=== PATIENT | female | born 1965 | race Caucasian/White ===

== ENCOUNTER 2019-11-01 15:47 | Emergency (ER) | payer OTHER, SELFPAY ==
[2019-11-01 15:57] VITALS: BP 140/80; PULSE 76; RESP 18; TEMP 36.7; O2SAT 99
--- NOTE | 2019-11-01 16:48 | ED.EAR ---
HPI - Ear Problem General Chief complaint: Ear Stated complaint: earache Time Seen by Provider: 11/01/19 16:40 Source: patient and RN notes reviewed Mode of arrival: ambulatory Limitations: no limitations History of Present Illness HPI Narrative: 54-year-old female who presents to [facility] care with complaints of right ear pain for the past 2 days with stated sinus congestion and sinus drainage for 2 weeks. Patient states that she has had yellow tinged sinus drainage but has not had any fever or chills. Patient does have history of tobacco abuse. Respirations even and nonlabored with no tachypnea or accessory muscle use with SAO2 99% on room air. MD Complaint: ear pain Location: right ear Duration: constant Severity: moderate Relieving factors: nothing Exacerbating factors: nothing Context: Reports recent swimming Discharge from ear: Reports no Associated symptoms ear: external ear tenderness and rhinorrhea Related Data Allergies Allergy/AdvReac Type Severity Reaction Status Date / Time No Known Allergies Allergy Verified 11/01/19 10:04 Review of Systems Review of Systems: Narrative: CONSTITUTIONAL: Denies fever, chills, or sweats. EYES: Denies visual changes, redness, or discharge. ENT: positive rhinorrhea, congestion,no sore throat, right otalgia. CARDIOVASCULAR: Denies chest pain, palpitations, or edema. RESPIRATORY: positive cough denies dyspnea. GASTROINTESTINAL: Denies abdominal pain, nausea, vomiting, or diarrhea. GENITOURINARY: Denies dysuria or hematuria. SKIN: Denies rash or itching. MUSCULOSKELETAL: Denies back pain, joint pain, or myalgia. NEUROLOGIC: Denies headache, numbness, or weakness. PSYCHIATRIC: Positive history of anxiety or depression. All systems reviewed & are unremarkable except as noted in HPI and below PMFSH Past Medical History Medical History (Updated 11/01/19 @ 17:37 by Rylee Luna NP) Anxiety and depression Bipolar 1 disorder HLD (hyperlipidemia) Sleep apnea Surgical History Surgical History (Updated 11/01/19 @ 17:33 by Rylee Luna NP) H/O: section Social History Social History Smoking status: Heavy tobacco smoker Alcohol intake: never Gender identity (if verbalized by the patient): Female Comments At time of signature, agree with nursing past medical, surgical, social history. There is no relevant family history pertinent to the presenting complaint Exam Narrative: Exam Narrative: GENERAL: Well-appearing, well-nourished, and in no acute distress. HEAD: Normocephalic, atraumatic. EYES: PERRLA and EOMI. ENT: Nares red, clear to light yellow tinged rhinorrhea, no stated headache or sinus pressure, positive for right ear with TM intact with dull light reflex and ear canal red and excoriated no purulent drainage noted. throat pink with no swelling of tonsils or exudates. NECK: Supple.no lymphadenopathy auscultation. No respiratory distress. HEART: Regular rate and rhythm. No murmur heard. Normal peripheral pulses. ABDOMEN: Soft, nontender, nondistended, normal active bowel sounds. EXTREMITIES: Normal range of motion. No edema. SKIN: Warm, dry, no rash. NEURO: No focal deficits. Alert and oriented x3. Course Vital Signs Vital signs: Vital Signs Temperature 36.7 C 11/01/19 15:57 Pulse Rate 76 11/01/19 15:57 Respiratory Rate 18 11/01/19 15:57 Blood Pressure 140/80 11/01/19 15:57 Pulse Oximetry 99 11/01/19 15:57 Temperature 36.7 C 11/01/19 15:57 Pulse Rate 76 11/01/19 15:57 Respiratory Rate 18 11/01/19 15:57 Blood Pressure 140/80 11/01/19 15:57 Pulse Oximetry 99 11/01/19 15:57 Medical Decision Making Differential Diagnosis Differential Diagnosis: URI, sinusitis, otitis media, otitis externa, cough Medical Records Medical records reviewed: Yes I reviewed the patient's medical records. Vital Signs Vital Signs: Vital Signs Temperature 36.7 C
== END 2019-11-01 17:02 | disposition home or self-care (01) ==
LOC: EXPGLEN 15:51
PROVIDERS: Emergency Provider Registered Nurse; PCP Family Medicine
DX: H60.91 Unspecified otitis externa, right ear (principal); F17.200 Nicotine dependence, unspecified, uncomplicated; F41.9 Anxiety disorder, unspecified; E78.5 Hyperlipidemia, unspecified; G47.30 Sleep apnea, unspecified; F31.9 Bipolar disorder, unspecified
CPT/HCPCS: 99213; G0463

== ENCOUNTER 2020-07-15 16:44 | Emergency (ER) | payer BC, SELFPAY ==
--- NOTE | 2020-07-15 16:58 | ED.EAR ---
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 Patient states she has a 2-week history of mostly right-sided fullness of her right ear. No fever, tooth ache, true vertigo, tinnitus-she has occasional beating sounds. Symptoms are mild, worse with position changes, which seem almost fluid. Discussed possible causes[allergic, infectious, acquired/smoking, etc.] Related Data Home Medications Medication Instructions Recorded Confirmed lithium carbonate 450 mg PO BID 07/15/20 07/15/20 venlafaxine 150 mg PO DAILY 07/15/20 07/15/20 Allergies Allergy/AdvReac Type Severity Reaction Status Date / Time No Known Allergies Allergy Verified 07/15/20 16:51 Review of Systems Review of Systems: Narrative: General/Constitutional: No weight loss,fever Eyes: N0: Redness,discharge Ears/Nose/Throat: No: Epistaxis,ear discharge Respiratory: Denies: Hemoptysis Gastrointestinal: No Vomiting, Bleeding-rectal Skin: No Lumps, eruption Neurologic: No Focal Weakness,Sz Hematologic: Denies: Petechiae/Purpura Psychiatric: No: Suicida ideationl All Other Systems: Reviewed and Negative PMFSH Past Medical History Medical History Anxiety and depression Bipolar 1 disorder HLD (hyperlipidemia) Sleep apnea Surgical History Surgical History H/O: section Social History Social History Smoking packs per day: 1 Smoking cigarettes per day: 20.0 Years smoked: 22 Smoking pack-years: 22.00 Smoking status: Current every day smoker Second hand tobacco smoke exposure: Yes Alcohol intake: never Substance use: never Substance use type: does not use Gender identity (if verbalized by the patient): Female Comments At time of signature, agree with nursing past medical, surgical, social and family history. There is no relevant family history pertinent to the presenting complaint Exam Narrative: Exam Narrative: General Appearance: Well appearing, Well nourished EYE: PERRLA, Conjunctiva clear Ears: Auditory canal normal, TM normal Nose: no rhinorrhea, Mucousal erythema Mouth/Throat: MM moist, Uvula midline, no pharyngeal erythema Neck: Supple, No adenopathy Respiratory: No respiratory distress, airway patent Cardiovascular: No JVD Musculoskeletal: Non tender, Normal strength Skin: Warm, Dry Neurological: A&O x3, CN II-XII intact Psychiatric: Normal mood, Normal affect Course Vital Signs Vital signs: Vital Signs Temperature 97.9 F 07/15/20 17:00 Pulse Rate 79 07/15/20 17:00 Respiratory Rate 16 07/15/20 17:00 Blood Pressure 167/91 H 07/15/20 17:00 Pulse Oximetry 98 07/15/20 17:00 Temperature 97.9 F 07/15/20 17:00 Pulse Rate 79 07/15/20 17:00 Respiratory Rate 16 07/15/20 17:00 Blood Pressure 167/91 H 07/15/20 17:00 Pulse Oximetry 98 07/15/20 17:00 Medical Decision Making Vital Signs Vital Signs: Vital Signs Temperature 97.9 F 07/15/20 17:00 Pulse Rate 79 07/15/20 17:00 Respiratory Rate 16 07/15/20 17:00 Blood Pressure 167/91 H 07/15/20 17:00 Pulse Oximetry 98 07/15/20 17:00 Temperature 97.9 F 07/15/20 17:00 Pulse Rate 79 07/15/20 17:00 Respiratory Rate 16 07/15/20 17:00 Blood Pressure 167/91 H 07/15/20 17:00 Pulse Oximetry 98 07/15/20 17:00 Discharge Plan Discharge Clinical Impression: Otalgia, right ear Patient Disposition: Home, Self-Care Condition: Stable Instructions: Antibiotic Form, Earache (ED) Additional Instructions: Also try OTC preparations like Flonase, Afrin sprays Prescriptions: New p
[2020-07-15 17:00] VITALS: BP 167/91; PULSE 79; RESP 16; TEMP 36.6; O2SAT 98
== END 2020-07-15 17:17 | disposition home or self-care (01) ==
PROVIDERS: Emergency Provider Emergency Medicine; PCP Family Medicine
DX: H66.92 Otitis media, unspecified, left ear (principal); F31.9 Bipolar disorder, unspecified; E78.5 Hyperlipidemia, unspecified; G47.30 Sleep apnea, unspecified; F17.210 Nicotine dependence, cigarettes, uncomplicated
CPT/HCPCS: 99213; G0463

== ENCOUNTER 2020-10-15 18:09 | Emergency (ER) | payer BC, SELFPAY ==
--- NOTE | ~2020-10-15 | CT_ITS ---
EXAMINATION: CT abdomen pelvis w con EXAM DATE: 10/15/2020 21:09 INDICATION: Abdominal distention. TECHNIQUE: Spiral CT of the abdomen and pelvis was performed following intravenous injection of 100 m L Omnipaque 350. Axial, coronal and sagittal images of the abdomen and pelvis were reviewed. The do se-length product (DLP) for this examination was 1280.98 mGy-cm. The exposure was tailored according to patient size (auto mA exposure control), and iterative reconstruction (ASIR) was used as addition al dose reduction technique. Comparison is made to prior examination from 02/17/2019. FINDINGS: There is hepatic steatosis without suspicious focal lesion identified. Spleen, adrenal glan ds, pancreas are unremarkable. Gallbladder is unremarkable. No biliary obstruction. Portal and spl enic veins are patent. Kidneys enhance symmetrically. There is no hydronephrosis. The uterus is u nremarkable. The bladder is unremarkable. There is no retroperitoneal or pelvic lymphadenopathy. The appendix is normal. There is small sliding gastroesophageal hiatal hernia. There is expected am ount of colonic stool. No free intraperitoneal gas. The heart is normal in size. There are no pe ricardial or pleural effusions. The lung bases are unremarkable. There are no osteoblastic or osteo lytic lesions identified. IMPRESSION: 1. No acute intra-abdominal findings. 2. Hepatic steatosis. Reviewed, dictated and finalized at location A.
[2020-10-15 18:29] VITALS: PULSE 92; RESP 14; TEMP 36.6; O2SAT 98
[2020-10-15 18:53] LABS: Basophils Percent Auto 0.3 % (0.2-1.2); Eosinophils Absolute Auto 0.5 K/mm3 (0-0.3); Eosinophils Percent Auto 4.4 % (0-4.4); Hematocrit 42.8 % (37.0-47.0); Hemoglobin 13.6 g/dL (12.0-15.0); Immature Granulocyte Absolute 0.05 K/mm3 (0.00-0.031); Immature Granulocyte Percent A 0.4 % (0-0.5); Lymphocytes Absolute Auto 2.36 K/mm3 (0.9-3.2); Lymphocytes Percent Auto 20.9 % (18.3-44.2); Mean Corpuscular HGB Conc 31.8 g/dl (32-36); Mean Corpuscular Hemoglobin 29.2 pg (26-34); Mean Corpuscular Volume 91.8 fl (80-100); Mean Platelet Volume 9.5 fl (7.4-10.4); Monocytes Absolute Auto 0.6 K/mm3 (0.1-0.6); Monocytes Percent Auto 5.6 % (2.6-8.5); Neutrophils Absolute Auto 7.7 K/mm3 (1.3-6.7); Neutrophils Percent Auto 68.4 % (45.5-73.1); Platelet Count Result 359 k/mm3 (150-375); Red Blood Count 4.66 M/mm3 (4.2-5.4); Red Cell Distribution Width 13.1 % (11.5-14.5); White Blood Count 11.3 K/mm3 (4.5-10.0)
[2020-10-15 19:04] LABS: Alanine Aminotransferase 37 U/L (4-35); Albumin Level 4.5 g/dL (3.5-5.1); Alkaline Phosphatase 97 U/L (38-126); Anion Gap 11 mmol/L (8-16); Aspartate Amino Transferase 29 U/L (14-36); Bilirubin,Total 0.3 mg/dL (0.2-1.3); Blood Urea Nitrogen 17 mg/dL (7-17); Calcium 10.3 mg/dL (8.4-10.2); Carbon Dioxide 23 mmol/L (22-30); Chloride 107 mmol/L (98-107); Estimated CRCL calculation 81 ml/min; Estimated Glomerular Filt Rate > 60; Glucose 106 mg/dL (65-105); Lipase 148 U/L (23-300); Potassium 4.2 mmol/L (3.4-5.0); Sodium 141 mmol/L (137-145)
[2020-10-15 19:07] LABS: Add Urine Microscopic? YES; Appearance Urine Clear (Clear); Bilirubin Urine Negative (Negative); Blood Urine Negative (Negative); Color Urine Yellow (Yellow); Glucose Urine UA Negative (Negative); Ketones Urine Negative (Negative); Leukocyte Esterase Ur 1+ LEU/UL (Negative); Mucus Urine Rare /lpf; Nitrate Urine Negative (Negative); Protein Urine Negative (Negative); RBC Urine 0-2 /hpf (0-2); Specific Grav Ur 1.015 (1.001-1.035); Squamous Epithelial Cell Urine Occasional /hpf (Few); Urobilinogen Urine Negative mg/dL (<2.0)
[2020-10-15 20:01] VITALS: BP 132/74; PULSE 69; RESP 20; TEMP 37.1; O2SAT 97
--- NOTE | 2020-10-15 20:06 | PC.NURSE ---
Pt presents to ED with complaints of abdominal bloating for the past month. Pt states I feel so full. I have never felt this heavy in my life . Pt states she has been experiencing frequent diarrhea. Pt denies nv, fever, chills, chest pain and sob. Pt adds that she is experiencing pain that is rated 5/10 and dull at this time. Pt noted to be alert and oriented x4 and in no obvious distress with stable vitals. Sister present at bedside. Call button and personal items within reach. Pt advised to press call button for assistance. YONG is present at bedside. Pt now stating that she hasn't seen her psych doc in 2 months and her lithium was increased and since then she has been experiencing bloating and weight gain of 20lbs.
[2020-10-15 20:30] VITALS: BP 130/80; PULSE 69; RESP 18; O2SAT 97
--- NOTE | 2020-10-15 20:34 | ED.GENADULT ---
HPI - General Adult General Chief complaint: Unspecified Stated complaint: bloated Time Seen by Provider: 10/15/20 19:56 Source: patient History of Present Illness HPI narrative: Patient is a 55 y/o female complaining of increasing abdominal bloating for last 2 months. She states that she was recently started on [place], which may have aggravated her bloating. She has some diarrhea, but no vomiting or abdominal pain. She states that she gained 20 lbs during last 2 months. Related Data Home Medications Medication Instructions Recorded Confirmed lithium carbonate 450 mg PO BID 07/15/20 09/19/20 venlafaxine 150 mg PO DAILY 07/15/20 07/15/20 aripiprazole 20 mg tablet 25 mg PO DAILY tablet 09/19/20 09/19/20 Allergies Allergy/AdvReac Type Severity Reaction Status Date / Time No Known Allergies Allergy Verified 09/19/20 08:59 Review of Systems Constitutional: Constitutional: Denies chills, Denies fever(s), Denies headache(s), Denies weakness and Reports weight gain Eyes: Eyes: Denies blurry vision ENT: Denies headache(s) and Denies neck pain Cardiovascular: Cardiovascular: Denies chest pain and Denies dyspnea Respiratory: Respiratory: Denies cough and Denies dyspnea Gastrointestinal: Gastrointestinal: Denies abdominal pain, Reports diarrhea, Denies nausea, Denies vomiting and Reports other ( bloating ) Genitourinary: Genitourinary: Denies hematuria and Denies dysuria Musculoskeletal: Musculoskeletal: Denies back pain and Denies neck pain Neurologic: Denies headache(s) and Denies weakness [facility] Past Medical History Medical History Anxiety and depression Bipolar 1 disorder HLD (hyperlipidemia) Sleep apnea Surgical History Surgical History H/O: section Social History Social History Smoking packs per day: 0.5 Smoking cigarettes per day: 10.0 Years smoked: 22 Smoking pack-years: 11.00 Smoking status: Current every day smoker Second hand tobacco smoke exposure: Yes Alcohol intake: never Substance use: never Substance use type: does not use Gender identity (if verbalized by the patient): Female Exam Const: General: no acute distress and well developed Orientation/consciousness: oriented to person, oriented to place, oriented to time and patient oriented x3 HENMT: Head: normocephalic Ears: external ears normal General nose exam: Normal external nose present Eyes: General: appearance normal, both eyes and all related structures Conjunctivae: conjunctivae normal Neck: Neck: normal visual inspection and full ROM Chest: Chest palpation & inspection: normal inspection of the chest and no tenderness Resp: Effort & Inspection: normal respiratory effort Auscultation: clear to auscultation bilaterally Cardio: Rate: regular rate Rhythm: regular rhythm GI: GI Palp: No abdominal tenderness and Yes Soft to palpation Skin: General skin exam: normal color and turgor normal Neuro: General: oriented to person, oriented to place, oriented to time and patient oriented x3 Cognition (Neuro): normal cognition Extrem: General: normal to inspection, full ROM and no pedal edema Psych: Appearance: grossly normal Mental Status: mental status grossly normal Affect: normal affect Course Vital Signs Vital signs: Vital Signs Temperature 36.6 C 10/15/20 18:29 Pulse Rate 92 10/15/20 18:29 Respiratory Rate 14 10/15/20 18:29 Pulse Oximetry 98 10/15/20 18:29 Temperature 36.8 C 10/15/20 22:42 Pulse Rate 71 10/15/20 22:42 Respiratory Rate 17 10/15/20 22:42 Blood Pressure 134/82 10/15/20 22:42 Pulse Oximetry 98 10/15/20 22:42 Medical Decision Making Vital Signs Vital Signs: Vital Signs Temperature 36.6 C 10/15/20 18:29 Pulse Rate 92 10/15/20 18:29 Respiratory Rate 14 10/15/20 18:
--- NOTE | 2020-10-15 21:03 | PC.NURSE ---
Pt continues resting on cart in its lowest position with call button and personal items within reach. Pt remains alert and oriented x4 and in no obvious distress with stable vitals. sister remains at bedside. Pt advised to press call button for assistance. Pt refusing blanket or sheet at this time.
--- NOTE | 2020-10-15 21:04 | PC.NURSE ---
Pelvic exam completed by EDMD and pt tolerated well.
--- NOTE | 2020-10-15 21:06 | PC.NURSE ---
Pt to radiology via cart.
[2020-10-15 22:05] LABS: Lithium 0.5 mmol/L (0.6-1.2)
--- NOTE | 2020-10-15 22:18 | PC.NURSE ---
Awaiting med from pharmacy.
--- NOTE | 2020-10-15 22:34 | PC.NURSE ---
pharmacy called about med. Med tubed to ED and received.
--- NOTE | 2020-10-15 22:36 | PC.NURSE ---
EDMD presented to bedside to update pt on poc and all questions and concerns addressed.
[2020-10-15 22:37] VITALS: BP 134/82; PULSE 68; RESP 23; TEMP 36.8; O2SAT 99
[2020-10-15] MEDS: SIMETHICONE 80 MG TAB.CHEW PO (22:38)
[2020-10-15 22:40] VITALS: BP 134/82; PULSE 71; RESP 17; TEMP 36.8; O2SAT 100
[2020-10-15 22:42] VITALS: BP 134/82; PULSE 71; RESP 17; TEMP 36.8; O2SAT 98
== END 2020-10-15 22:46 | disposition home or self-care (01) ==
PROVIDERS: Emergency Provider Emergency Medicine; PCP Physician Assistant
DX: K76.0 Fatty (change of) liver, not elsewhere classified (principal); R14.0 Abdominal distension (gaseous); F41.8 Other specified anxiety disorders; E78.5 Hyperlipidemia, unspecified; F17.210 Nicotine dependence, cigarettes, uncomplicated
CPT/HCPCS: 36415; 74177; 80053; 80178; 81001; 81025; 83690; 85025; 99284; A9270; Q9967

== ENCOUNTER 2021-01-03 19:29 | Emergency (ER) | payer BC, SELFPAY ==
--- NOTE | ~2021-01-03 | CT_ITS ---
EXAMINATION: CTA chest PE protocol DATE: 01/03/2021 23:34 INDICATION: Shortness of breath for 3 days TECHNIQUE: Computed tomography angiography (CTA) of the chest was performed with 100 mL Omnipaque-350 intravenous contrast timed to evaluate the pulmonary arteries. Coronal maximum intensity projection 3D-reconstructions were created by the technologist. Automated exposure control and iterative reconst ruction technique were employed. Exam dose: 995.26 mGy-cm total exam DLP. COMPARISON: 01/03/2021 2 view chest FINDINGS: There is moderate opacification the pulmonary arteries. No pulmonary embolism is evident. No thoracic aortic aneurysm or dissection. Normal heart size. No hilar or mediastinal mass lesion or lymphadenopathy. No pericardial or pleural effusion. No pulmonary infiltrate or consolidation or suspicious pulmonary mass lesion. The adrenal glands are normal. Small sliding hiatal hernia. Small left lower lobe calcified pulmonary granuloma. Degenerative spurring of the thoracic spine. No suspicious osteolytic or osteoblastic lesions are not ed. IMPRESSION: No evidence of pulmonary embolism Reviewed, dictated and finalized at Location A. Reviewed, dictated and finalized at location A.
--- NOTE | ~2021-01-03 | XR_ITS ---
XR chest 2V DATE: 01/03/2021 20:07 INDICATION: Shortness of breath, worsening over the past 3 days. Bilateral ankle swelling and weight gain. TECHNIQUE: PA and lateral views COMPARISON: 02/17/2019 PA and lateral chest FINDINGS: Normal heart size. No hilar or mediastinal enlargement. No pulmonary infiltrate or consolid ation, pleural effusion or pulmonary vascular congestion or pneumothorax. Degenerative spurring and dextro scoliosis of the thoracic spine. IMPRESSION: No active cardiopulmonary disease. No evidence of congestive changes. Reviewed, dictated and finalized at location A. IMPRESSION: No active cardiopulmonary disease. No evidence of congestive change s.
--- NOTE | 2021-01-03 19:44 | ECG_ITS ---
Measurements Intervals [place] Rate: 84 P: 50 ID: [id number] QRS: 39 QRSD: 110 T: 72 QT: 384 QTc: 455 Interpretive Statements SINUS RHYTHM BASELINE ARTIFACT- I, II, III, AVR, AVL, AVF, V1, V3 NORMAL ECG Electronically Signed On 01-03-2021 20:08:26 CDT by Sacha Marsh D.O.
[2021-01-03 19:46] VITALS: BP 183/88; PULSE 90; RESP 21; TEMP 36.4; O2SAT 97
[2021-01-03 19:52] LABS: Glucose Point of Care 105 mg/dl (65-105)
[2021-01-03 20:01] LABS: Basophils Absolute Auto 0.1 K/mm3 (0.0-0.1); Basophils Percent Auto 0.6 % (0.2-1.2); Eosinophils Absolute Auto 0.5 K/mm3 (0-0.3); Eosinophils Percent Auto 5.2 % (0-4.4); Hematocrit 41.5 % (37.0-47.0); Immature Granulocyte Absolute 0.03 K/mm3 (0.00-0.031); Immature Granulocyte Percent A 0.3 % (0-0.5); Lymphocytes Absolute Auto 2.31 K/mm3 (0.9-3.2); Lymphocytes Percent Auto 25.4 % (18.3-44.2); Mean Corpuscular HGB Conc 31.3 g/dl (32-36); Mean Corpuscular Hemoglobin 29.4 pg (26-34); Mean Corpuscular Volume 93.9 fl (80-100); Mean Platelet Volume 9.6 fl (7.4-10.4); Monocytes Absolute Auto 0.6 K/mm3 (0.1-0.6); Monocytes Percent Auto 6.4 % (2.6-8.5); Neutrophils Absolute Auto 5.7 K/mm3 (1.3-6.7); Neutrophils Percent Auto 62.1 % (45.5-73.1); Platelet Count Result 355 k/mm3 (150-375); Red Blood Count 4.42 M/mm3 (4.2-5.4); Red Cell Distribution Width 12.9 % (11.5-14.5); White Blood Count 9.1 K/mm3 (4.5-10.0)
[2021-01-03 20:10] LABS: INR 0.9; Prothrombin Time 12.2 Seconds (11.1-14.7)
[2021-01-03 20:11] LABS: Anion Gap 9 mmol/L (8-16); Blood Urea Nitrogen 14 mg/dL (7-17); Calcium 9.9 mg/dL (8.4-10.2); Carbon Dioxide 29 mmol/L (22-30); Chloride 104 mmol/L (98-107); Estimated CRCL calculation 62 ml/min; Estimated Glomerular Filt Rate 51; Glucose 114 mg/dL (65-110); Partial Thromboplastin Time 32.1 SECONDS (22.3-36.8); Potassium 4.1 mmol/L (3.4-5.0); Sodium 142 mmol/L (137-145)
[2021-01-03 20:24] LABS: NT Pro B Type Natriuretic Pept 23 pg/mL (5-100); Troponin I < 0.012 ng/mL (0.000-0.034)
[2021-01-03 21:46] VITALS: PULSE 75; O2SAT 98
--- NOTE | 2021-01-03 21:46 | PC.NURSE ---
Pedal pulses marked by LEXI.
[2021-01-03 22:02] VITALS: BP 141/74; PULSE 74; RESP 25; O2SAT 95
[2021-01-03 22:09] LABS: Alanine Aminotransferase 57 U/L (4-35); Albumin Level 4.5 g/dL (3.5-5.1); Alkaline Phosphatase 93 U/L (38-126); Aspartate Amino Transferase 43 U/L (14-36); Bilirubin,Total 0.4 mg/dL (0.2-1.3)
[2021-01-03 22:17] VITALS: BP 144/74; PULSE 71; RESP 26; O2SAT 96
[2021-01-03 22:32] VITALS: BP 148/83; PULSE 75; RESP 20; O2SAT 96
[2021-01-03] MEDS: FUROSEMIDE INJ 40 MG/4 ML VIAL 20 MG IV PUSH (22:58)
--- NOTE | 2021-01-03 23:12 | ED.GENADULT ---
HPI - General Adult General Chief complaint: Shortness of Breath/Dyspnea Stated complaint: bilateral leg edema Time Seen by Provider: 01/03/21 22:18 History of Present Illness HPI narrative: Patient 55-year-old female presents the emergency department with chief complaint of shortness of breath and bilateral lower extremity swelling. Patient reports that over the last several days she has noticed that her legs have been swelling up patient reports no trauma reports no long trips does report that she occasionally smokes cigarettes patient reports symptoms are not improved by anything reports she is attempted to elevate her legs for about 20minutes without any improvement patient denies fever denies chills denies chest pain. Related Data Home Medications Medication Instructions Recorded Confirmed lithium carbonate 450 mg PO BID 07/15/20 09/19/20 venlafaxine 150 mg PO DAILY 07/15/20 07/15/20 aripiprazole 20 mg tablet 25 mg PO DAILY tablet 09/19/20 09/19/20 Allergies Allergy/AdvReac Type Severity Reaction Status Date / Time No Known Allergies Allergy Verified 01/03/21 21:54 Review of Systems Review of Systems: A 10 system review of systems was completed on the patient and is negative except for what is stated in the HPI. Nursing and ancillary documentation was reviewed. PMFSH Past Medical History Medical History Anxiety and depression Bipolar 1 disorder HLD (hyperlipidemia) Sleep apnea Surgical History Surgical History H/O: section Social History Social History Smoking packs per day: 0.5 Smoking cigarettes per day: 10.0 Years smoked: 22 Smoking pack-years: 11.00 Smoking status: Current every day smoker Second hand tobacco smoke exposure: Yes Alcohol intake: never Substance use: never Substance use type: does not use Gender identity (if verbalized by the patient): Female Exam Narrative: GENERAL: Well-appearing, well-nourished, and in no acute distress. HEAD: Normocephalic, atraumatic. EYES: PERRLA and EOMI. ENT: Nares clear, no rhinorrhea or epistaxis. Mucous membranes moist. NECK: Supple. CHEST: Clear to auscultation. No respiratory distress. HEART: Regular rate and rhythm. No murmur heard. Normal peripheral pulses. ABDOMEN: Soft, nontender, nondistended, normal active bowel sounds. EXTREMITIES: Normal range of motion. +1 edema. SKIN: Warm, dry, no rash. NEURO: No focal deficits. Alert and oriented x3. PSYCH: Normal mood and affect. Course Vital Signs Vital signs: Vital Signs Temperature 36.4 C 01/03/21 19:46 Pulse Rate 90 01/03/21 19:46 Respiratory Rate 21 H 01/03/21 19:46 Blood Pressure 183/88 H 01/03/21 19:46 Pulse Oximetry 97 01/03/21 19:46 Temperature 36.4 C 01/03/21 19:46 Pulse Rate 70 01/03/21 23:46 Respiratory Rate 25 H 01/03/21 23:46 Blood Pressure 143/77 H 01/03/21 23:46 Pulse Oximetry 96 01/03/21 23:46 Medical Decision Making Vital Signs Vital Signs: Vital Signs Temperature 36.4 C 01/03/21 19:46 Pulse Rate 90 01/03/21 19:46 Respiratory Rate 21 H 01/03/21 19:46 Blood Pressure 183/88 H 01/03/21 19:46 Pulse Oximetry 97 01/03/21 19:46 Temperature 36.4 C 01/03/21 19:46 Pulse Rate 70 01/03/21 23:46 Respiratory Rate 25 H 01/03/21 23:46 Blood Pressure 143/77 H 01/03/21 23:46 Pulse Oximetry 96 01/03/21 23:46 Lab Data Result diagrams: 01/03/21 19:52 01/03/21 19:52 Labs: Lab Results 01/03/21 01/03/21 01/03/21 Range/Units 19:50 19:52 19:52 WBC 9.1 (4.5-10.0) K/mm3 RBC 4.42 (4.2-5.4) M/mm3 Hgb 13.0 (12.0-15.0) g/dL Hct 41.5 (37.0-47.0) % MCV 93.9 (80-100) fl MCH 29.4 (26-34) pg MCHC 31.3 L (32-36) g/dl RDW 12.9 (11.5-14.5)
[2021-01-03 23:46] VITALS: BP 143/77; PULSE 70; RESP 25; O2SAT 96
[2021-01-03 23:53] LABS: Add Urine Microscopic? YES; Appearance Urine Clear (Clear); Bilirubin Urine Negative (Negative); Blood Urine Negative (Negative); Color Urine Yellow (Yellow); Glucose Urine UA Negative (Negative); Ketones Urine Negative (Negative); Leukocyte Esterase Ur 1+ LEU/UL (Negative); Nitrate Urine Negative (Negative); Protein Urine Negative (Negative); RBC Urine 0-2 /hpf (0-2); Specific Grav Ur 1.017 (1.001-1.035); Squamous Epithelial Cell Urine Rare /hpf (Few); Urobilinogen Urine Negative mg/dL (<2.0)
[2021-01-04 00:42] VITALS: BP 157/93; PULSE 72; RESP 22; O2SAT 97
== END 2021-01-04 00:46 | disposition home or self-care (01) ==
PROVIDERS: Emergency Medicine; Emergency Provider Emergency Medicine; PCP Physician Assistant
DX: N30.00 Acute cystitis without hematuria (principal); R60.0 Localized edema; E78.5 Hyperlipidemia, unspecified; G47.30 Sleep apnea, unspecified; F31.9 Bipolar disorder, unspecified; F41.9 Anxiety disorder, unspecified; F17.210 Nicotine dependence, cigarettes, uncomplicated
CPT/HCPCS: 36415; 71046; 71275; 80048; 80076; 81001; 82948; 83880; 84484; 85025; 85610; 85730; 87086; 87088; 93005; 96374; 99284; J1940; Q9967

== ENCOUNTER 2021-01-04 07:43 | Outpatient (CLI) | payer BC, SELFPAY ==
--- NOTE | ~2021-01-04 | US_ITS ---
EXAMINATION: US venous doppler LE EXAM DATE: 01/04/2021 08:26 INDICATION: Lower extremity edema. TECHNIQUE: Multiple grayscale, color flow and Doppler images of the lower extremity deep venous syste ms bilaterally were obtained and reviewed. There is no prior study for comparison. FINDINGS: Right side: The right common femoral, femoral and profunda veins demonstrate normal color flow, respi ratory variation, augmentation and compressibility. Compressibility, color flow confirmed within the right popliteal, posterior tibial, peroneal, and greater saphenous veins. Left side: The left common femoral, femoral and profunda veins demonstrate normal color flow, respira tory variation, augmentation and compressibility. Compressibility, color flow confirmed within the l eft popliteal, posterior tibial, peroneal, and greater saphenous veins. IMPRESSION: 1. No lower extremity deep venous thrombosis bilaterally. Reviewed, dictated and finalized at location D.
== END 2021-01-04 07:44 | disposition home or self-care (01) ==
LOC: ANHIMG 07:47
PROVIDERS: PCP Physician Assistant; Visit Provider Physician Assistant
DX: R60.0 Localized edema (principal)
CPT/HCPCS: 93970

== ENCOUNTER 2021-02-18 13:31 | Outpatient (CLI) | payer BC, MEDICAID, SELFPAY ==
--- NOTE | 2021-02-18 13:45 | ECHO_ITS ---
Patient Info Name: Malgorzata Maher Age: 55 years : 1965 Gender: Female Ht: 62 in Wt: 250 lbs BSA: 2.30 m2 HR: 72 bpm BP: 167 / 103 mmHg Technical Quality: Fair Exam Date: 02/18/2021 1:49 PM Exam Location: [facility] Patient Status: Outpatient Admit Date: 02/18/2021 Staff Ordering Physician: Taina Bautista PA-C [place] Hat Smearer: Misty Card RDCS Attending Provider: Taina Bautista PA-C Referring Physician: Michele HERNANDEZ; Exam Type: CA echo doppler color flow Study Info Indications R60.9 - Edema, unspecified Complete two-dimensional, color flow and Doppler transthoracic echocardiogram is performed. Summary 1. Complete two-dimensional, color flow and Doppler transthoracic echocardiogram is performed. 2. Left ventricular chamber dimension is normal. 3. Left ventricular systolic function is normal, estimated at 55-60%. 4. There is mildly increased left ventricular wall thickness. 5. The left ventricular diastolic function is grade I diastolic dysfunction. 6. E/e' 10 is mildly elevated. 7. The mitral valve has mildly calcified annulus. 8. No pulmonary hypertension, estimated pulmonary arterial systolic pressure is 23 mmHg. Left Ventricle E/e' 10 is mildly elevated. Left ventricular chamber dimension is normal. Left ventricular systolic function is normal, estimated at 55-60%. There is mildly increased left ventricular wall thickness. The left ventricular diastolic function is grade I diastolic dysfunction. Right Ventricle Right ventricular chamber dimension is normal. Right ventricular systolic function is normal. Left Atria Left atrial chamber dimension is normal. Right Atria Right atrial chamber dimension is normal. Aortic Valve The aortic valve is trileaflet. There is no aortic valve stenosis. There is no aortic valve regurgitation. Pulmonic Valve There is no pulmonic regurgitation. Mitral Valve The mitral valve has mildly calcified annulus. There is no mitral valve stenosis. There is no mitral valve regurgitation. Tricuspid Valve There is no tricuspid valve regurgitation. No pulmonary hypertension, estimated pulmonary arterial systolic pressure is 23 mmHg. Pericardium/Pleural There is no pericardial effusion. Inferior Vena Cava Normal inferior vena cava with >50% collapse upon inspiration consistent with normal right atrial pressure, 5 mmHg. Aorta The aortic root size at the sinus of Valsalva is normal. Left Ventricular Outflow Tract Name Value Normal LVOT 2D LVOT Diameter 2.0 cm LVOT Doppler LVOT Peak Gradient 7 mmHg LVOT Mean Gradient 4 mmHg LVOT VTI 30 cm LVOT VTI/AV VTI Ratio 1.0 LVOT Stroke Volume 92 ml LVOT CO 5.7 l/min LVOT CI 2.5 l/min/m2 Pulmonic Valve Name Value Normal
== END 2021-02-18 13:32 | disposition home or self-care (01) ==
LOC: ANHCARD 13:36
PROVIDERS: PCP Family Medicine; Visit Provider Physician Assistant
DX: R06.02 Shortness of breath (principal); R60.9 Edema, unspecified
CPT/HCPCS: 93306

== ENCOUNTER 2021-05-07 14:16 | Emergency (ER) | payer BC, SELFPAY ==
[2021-05-07 14:30] VITALS: BP 163/90; PULSE 99; RESP 16; TEMP 37.7; O2SAT 99
--- NOTE | 2021-05-07 14:49 | ED.URI ---
HPI - URI/Sore Throat General Chief Complaint: Upper Respiratory Infection Stated Complaint: Flu Sx/Body aches Source: patient Mode of arrival: ambulatory Limitations: no limitations History of Present Illness HPI Narrative: 56-year-old female presenting for complaint of headache, body aches, sinus pressure, loss of taste, fever and chills. Onset today. She denies chest pain, shortness of breath, nausea, vomiting, diarrhea. Patient is vaccinated for COVID, needs the booster. 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 MD elicited complaint: cough Related Data Home Medications Medication Instructions Recorded Confirmed lithium carbonate 450 mg PO BID 07/15/20 09/19/20 venlafaxine 150 mg PO DAILY 07/15/20 07/15/20 aripiprazole 20 mg tablet 25 mg PO DAILY tablet 09/19/20 09/19/20 buspirone 5 mg tablet 5 mg PO BID 04/17/21 Allergies Allergy/AdvReac Type Severity Reaction Status Date / Time No Known Allergies Allergy Verified 04/17/21 09:02 Review of Systems Review of Systems: CONSTITUTIONAL: Endorses malaise, chills, sweats, fever. EYES: Denies visual changes, redness, or discharge. ENT: Reports rhinorrhea, congestion, sinus pain, otalgia and sore throat. CARDIOVASCULAR: Denies chest pain, palpitations, or edema. RESPIRATORY: Reports cough, post nasal drainage. Denies dyspnea. GASTROINTESTINAL: Denies abdominal pain, nausea, vomiting, diarrhea SKIN: Denies rash or itching. MUSCULOSKELETAL: Endorses myalgia. NEUROLOGIC: Denies headache. [facility] Past Medical History Medical History Anxiety and depression Bipolar 1 disorder HLD (hyperlipidemia) Hypertension Sleep apnea Surgical History Surgical History H/O: section Family History Family History Mother CHF (congestive heart failure) Sibling Hx of artificial heart valve replacement Pacemaker Social History Social History Smoking packs per day: 0.5 Smoking cigarettes per day: 10.0 Years smoked: 22 Smoking pack-years: 11.00 Second hand tobacco smoke exposure: Yes Alcohol intake: never Substance use: never Substance use type: does not use Gender identity (if verbalized by the patient): Female Exam Narrative: GENERAL: Ill-appearing, nontoxic no acute distress. HEAD: Normocephalic EYES: PERRLA, conjunctivae clear ENT: Mucous membranes moist. TM pearly dean with dull light reflex bilaterally; no tragal tenderness. Oropharynx erythematous without lesions, no drooling, no hoarseness, no trismus, uvula midline. NECK: Supple. No lymphadenopathy CHEST: Clear to auscultation, breath sounds equal. No wheezing, rhonchi, rales, or stridor. No respiratory distress, speaks in full sentences. HEART: Regular rate and rhythm. No murmur heard. SKIN: Warm, dry, no rash. NEURO: Alert and oriented x3. PSYCH: Normal mood and affect Course Course Emergency Course: covid neg flu neg Patient is aware of diagnosis, understands and agrees to treatment plan. Anticipatory guidance given. Patient agrees to follow-up as directed and is aware of reasons to seek care at the emergency department. Portions of this record may have been created with voice recognition software Level of Care: Express Care Visit Vital Signs Vital signs: Vital Signs Temperature 99.8 F H 05/07/21 14:30 Pulse Rate 99 05/07/21 14:30 Respiratory Rate 16 05/07/21 14:30 Blood Pressure 163/90 H 05/07/21 14:30 Pulse Oximetry 99 05/07/21 14:30 Temperature 99.8 F H 05/07/21 14:30 Pulse Rate 99 05/07/21 14:30 Respiratory Rate 16 05/07/21 14:30 Blood Pressure 163/90 H 05/07/21 14:30 Pulse Oximetry 99 05/07/21 14:30 reviewed MDM - URI/Sore Throat Differential Diagnosis Differential
== END 2021-05-07 15:39 | disposition home or self-care (01) ==
PROVIDERS: Emergency Provider Nurse Practitioner Family; PCP Physician Assistant
DX: B34.9 Viral infection, unspecified (principal); Z20.822 Contact with and (suspected) exposure to COVID-19; F17.210 Nicotine dependence, cigarettes, uncomplicated; I10 Essential (primary) hypertension; G47.30 Sleep apnea, unspecified; E78.5 Hyperlipidemia, unspecified; F31.9 Bipolar disorder, unspecified; F41.9 Anxiety disorder, unspecified
CPT/HCPCS: 87426; 87804; 99213; C9803; G0463

== ENCOUNTER 2023-03-13 10:21 | Outpatient (CLI) | payer BC, SELFPAY ==
--- NOTE | ~2023-03-13 | XR_ITS ---
EXAMINATION: XR chest 2V DATE: 03/13/2023 10:38 INDICATION: Cough TECHNIQUE: Frontal and lateral views of the chest are obtained COMPARISON: 01/03/2021 FINDINGS: The lungs are free of acute opacities. No pleural effusion or pneumothorax. The cardiomedia stinal silhouette is normal. There is severe thoracic spondylosis. IMPRESSION: 1. No acute cardiopulmonary abnormality. Reviewed, dictated and finalized at location F. MANAGER
== END 2023-03-13 10:22 | disposition home or self-care (01) ==
PROVIDERS: PCP Family Medicine
DX: R05.9 Cough, unspecified (principal)
CPT/HCPCS: 71046

== ENCOUNTER 2024-06-06 11:49 | Outpatient (CLI) | payer BC, SELFPAY ==
[2024-06-06 12:38] LABS: Influenza A QL RT-PCR Negative (Negative); Influenza B QL RT-PCR Negative (Negative); RSV RNA, RT-PCR Negative (Negative); SARS-CoV-2 RNA PCR Negative (Negative)
--- OUTSIDE RECORDS SUMMARY | 2024-06-06 14:37 | XMS_ITS | Clinical Summary ---
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 Name Role Phone Unavailable Primary Care Provider Unavailabl e Social History Tobacco Use Types Packs/Day Years Used Date Smoking Tobacco: Never Assessed Comments Unknown Sex and Gender Information Value Date Recorded Sex Assigned at Not on file Legal Sex Female 4:21 PM CDT Gender Identity Not on file Sexual Orientation Not on file Plan of Treatment Health Maintenance Due Date Last Done Comments Cervical Cancer Screening Pa p Smear (Age 30 to 64) Every 3 Years 1963 Colorectal Cancer Screening Colonoscopy (10 Years) 1963 Annual Physical 1966 Hepatitis C 1981 DTaP, Tdap and Td Vaccines ( 1 - Tdap) 1982 Cervical Cancer Screening Pa p with HPV Testing (Age 30 to 64) Every 5 Years 1993 Cervical Cancer Screening with HPV 1993 Mammogram Screening 2003 Zoster Vaccines (1 of 2) 2013 COVID-19 Vaccine (2023-2 5 season) 2023 Influenza Adult (#1) 2024 RSV Immunization or 60+ Years (1 - 1-dose 75+ series) 2038 Meningococcal B Vaccine Aged Out No l onger eligible based on patient's age to complete this topic Meningococcal Vaccine Aged Out No tae kinsey eligible based on patient's age to complete this topic Pneumococcal Vaccine: Pediat rics (0 to 5 Years) and At-Risk Patients (6 to 64 Years) Aged Out No longer eligible b ased on patient's age to complete this topic RSV Immunizations Under 20 Months Aged Out No longer eligible based on patient's age to complete this topic
--- OUTSIDE RECORDS SUMMARY | 2024-06-06 14:37 | XMS_ITS | Continuity of Care Document ---
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 [address] , [address], [place], [place], [facility], . tel:[phone] Office/outpat ient Visit, Est [facility], [address] [place] [address] [address], [place], [place], [id number], tel:[phone] [facility] No Information 0 Tabitha Magallanes. [address] , [address], [place], [address], [place]. tel:[phone] Family History Family Member Type Diagnosis Age At Onset No Information Payers Payer name Insurance type Covered democrat ID Authorkena luigiadán(s) [employer] Plan CI [id number] Social History Type Description Quantity Date Captured Comments Sex Female Smoking Status No Information Chief Complaint And Reason For Visit No Information Reason For Referral Reason For Referral No Information History Of Present Illness Encounter Date Complaint History Of Prese nt Illness No Information Functional Status Date Functional Assessmen t No Information Instructions Date Instruction Additional Infor mation No Information Assessments Type Assessment Date No Information Patient Care Teams Name Effective Dates (start - stop) Status Members No Information
--- OUTSIDE RECORDS SUMMARY | 2024-06-06 14:37 | XMS_ITS | Continuity of Care Document ---
Author Organization [facility] Address [address] [place] [address] Phone Care Team Providers Care Senior Director Marketing Name Role Phone Stack Axel VENTURA Unavailable Unavailab le Allergies, Adverse Reactions, Alerts Substance Reaction Status Criticality No Known Allergies Active No Inform ation Medications Medication Instructions Dosage Effective Dates (start - stop) Status Comments meloxicam 15 mg tablet take 1 tablet by oral route every day 15 MG - Active Procedures Procedure Date X-ray exam knee, 3 views X-ray exam knee, 4+ views Office/outpatient visit,est, mod 2021 Asp/inject major joint or bursa w/o US g uidance Kenalog 40mg/mL Asp/inject major joint or bursa w/o US g uidance Kenalog 40mg/mL Asp/inject major joint or bursa w/o US g uidance Kenalog Triamcinolone acetonide inj Asp/inject major joint or bursa w/o US g uidance Kenalog Triamcinolone acetonide inj X-ray exam knee, 3 views Office/outpatient visit,est, mod 2020 Asp/inject major joint or bursa w/o US g uidance Kenalog Triamcinolone acetonide inj X-ray exam knee, 4+ views Office/outpatient visit,new, [facility] [place] Advance Directives Directive Yes / No Effective Date File Name No Information Encounters Encounter Description Practice Location Reason(s) For Visit Diagnoses Date Provider Providers Copied on Encounter Office/outpat ient visit,est, mod [facility], [address] [address], [place], [place], [id number], [place] tel:[phone] [facility] bilat knees (chief complaint) Pain in left kneePain in right kneeBilateral primary osteoarthritis of knee 2 Stack Axel. [address] [place] [address], [place], [place], [id number] , [place]. tel: [phone] [facility], [address], [id number], [place] tel:[phone] [facility] Bilateral knees (chief complaint) Pain in left kneePain in right kneeBilateral primary osteoarthritis of knee 2 Stack Axel. [address] [facility] [facility] [address], [place], [place], [id number] , [place]. tel: [phone] [facility], [address], [place], [place], [id number], [place] tel:[phone] [facility] Bilateral knees (chief complaint) Bilateral primary osteoarthritis of kneePain in right kneePain in left knee 2 Stack Axel. [address], [place], [place], [id number] , [place]. tel: [phone] [facility], [address] [address], [place], [place], [id number], [place] tel:[phone] [facility] bilateral knees (chief complaint) Pain in right kneePain in left kneeBilateral primary osteoarthritis of knee 1 Stack Axel. [address], [address], [id number] , [place]. tel: [phone] [place]pat ient [place]est, [facility], [address], [place], [place], [id number], [place] tel:[phone] [facility] Bilat knees (chief complaint) Pain in right kneePain in left kneeBilateral primary osteoarthritis of knee 1 Seda Reyna. [address], [place], [place], [id number] , [place]. tel:[phone] Office/outpat ient [place], [facility], [address], [place], [place], [id number], [place] tel:[phone] [facility] left knee (chief complaint) Pain in left kneeUnilateral primary osteoarthritis, left knee 1 Lisa Clarke oswald. [address], [place], [place], [id number] , [place]. tel:[phone] Referring Provider: Kwadwo Dumont [address], [place], [address] . tel:[phone] Family History Family Member Type Diagnosis Age At Onset No Information Payers Payer name Insurance type Covered libertarian ID Analia lemons(s) Belinda Patel [facility] [id number] Social History Type Description Quantity Date Captured Comments Alcohol Use Details No Caffeine Use Details Unknown Tobacco Use Status Current non-smoker Smoking Status Never smoker Non-Smoking Tobacco Use Details : No Details Available : No Details Available Sex Female Vital Signs Date / Time: Height Weight BMI Pulse Rate Blood Pressure Temperature Respiratory Rate Body Surface Area Head Circumference Head Circ. Percentile Wt./Bill. Percentile BMI percentile Pulse Ox Inhaled Ox 1:21 PM 62.00 in 114.305 kg (252.00 lbs) 46.0 9 kg/m eter (2) Chief Complaint And Reason For Visit From encounter dated 03/11/2022 13:30'. bilat knees (chief complaint). Description: Batsheva is a pleasant 57-year-old female who presentsto the office today for cortisone injection into the bilateral knees for treatment of pain related to osteoarthritis. Her last cortisone only lasted 1-2 weeks. She is now experiencing moderate constant diffusely located pain, that is worsened with sitting for an extended period of time, transitioning from sitting to standing, and descending and descending stairs. Pain is managed with the use of ibuprofen and meloxicam. Denies injury, trauma, or fall since last office visit. Denies fever, chills, generalized feelings of illness or malaise. She is ambulating without assistive device at today's office visit. Reason For Referral Reason For Referral No Information Plan Of Treatment Date Type Action Status Goal Dietary manageme nt education, guidance, and counseling completed Referral Ordered: X-ray exam knee, 3 views LT knee ordered Referral Ordered: X-ray exam knee, 4+ views RT knee ordered Referral Ordered: X-ray exam knee, 3 views RT knee ordered Referral Ordered: X-ray exam knee, 4+ views LT knee ordered Future Order: Lab Order Comprehe nsive Metabolic Profile (CMP), Ordered on: Ordered History Of Present Illness Encounter Date Complaint History Of Prese nt Illness bilat knees Batsheva is a p leasant 57-year-old female who presents to the office today for cortisone injection into the bilateral knees for treatment of pain related to osteoarthritis. Her last cortisone only lasted 1-2 weeks. She is now experiencing moderate constant diffusely located pain, that is worsened with sitting for an extended period of time, transitioning from sitting to standing, and descending and descending stairs. Pain is managed with the use of ibuprofen and meloxicam. Denies injury, trauma, or fall since last office visit. Denies fever, chills, generalized feelings of illness or malaise. She is ambulating without assistive device at today's office visit. Bilateral knees Batsheva is a p leasant 56 year old female who presents to the office today for treatment of the pain in her bilateral knees related to osteoarthritis. She last had a cortisone injection into the knee joint on 06/10/2021, and indicates that they worked well until approximately a few weeks ago. Since that time she has been experiencing pain in the bilateral knees that is worsened with ascending and descending stairs. Pain is diffusely located and managed with the use of ibuprofen, is moderate and intermittent in nature. Denies injury, trauma or fall since last office visit. Denies fever, chills, generalized feelings of illness or malaise. She has been on meloxicam in the past and would like to discuss prescription. Indicates no recent lab work and no known history of kidney issues. She is ambulating without assistive device at today's visit. Suzanne Herman is a p leasant 56 year old female who presents to the office today for treatment of the pain in her bilateral knees related to osteoarthritis. She last had a cortisone injection into the knee joint on 03/04/2021, and indicates that she does not remember if they offered any reduction of the pain in the knees or increase in function. 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 Pain is diffusely located and worsened with ascending and descending stairs, ambulation on uneven terrain, and with exercise program for weight loss. The pain is managed with the use of ibuprofen, activity modification, reduction of intact of foods that increase inflammation. She The patient is ambulating without assistive device at today's visit. suzanne Herman is a p leasant 55 year old female who presents to the office today for treatment of the pain in her bilateral knees related to osteoarthritis. She last had a cortisone injection into the knee joint on , and indicates that they worked well until approximately three weeks ago. Since that time she has been experiencing increasing pain in the bilateral knees that is worsened with ascending and descending stairs, ambulation and weight bearing. Pain is diffusely located and is rated at a 9 out of 10 with an aching intermittent nature that is managed with the use of Voltaren gel, and over the counter pain medications and NSAIDs. She is ambulating without assistive device at today's visit. Leodan Herman is a p leasant 55 year-old female who presents to the office for evaluation of her chronic bilateral knee pain. She was seen by Dr. Damir Gonzalez for treatment of pain in the left knee related to osteoarthritis, and conservative treatment continuation was discussed. Patient wishes to proceed with cortisone injection into the bilateral knees. Denies injury, trauma, or fall within the last year. Pain in the right knee is rated at a 4 out of 10 with a dull, aching, constant nature, and pain in the left knee is rated at an 8 out of 10 with a sharp, stabbing, throbbing, burning, aching constant nature. Pain is worsened with ascending and descending stairs, and patient indicates that she actively avoids this activity, as well as ambulation. Pain is managed with the use of Naprosyn and positional changes. Patient is ambulating without assistive device at today's office visit. left knee Batsheva is a [age] year-old female who presents to the office for evaluation of left knee pain. She is a pleasant female who is 5 foot 2 and weighs 252 pounds. She denies any injury. Her pain as a 5 out of 10. It is constant and aching. Symptoms include mild crepitance of joint pain grinding and locking. Pain is greatly improved after her recent cortisone injection on September 18. She is also using Voltaren gel. She has seen Dr. Dumont. Pain is worse with bending climbing stairs descending stairs and walking. She has had no previous surgery she is a non-smoker. She does not currently use an assistive device. She was referred by Dr. Dumont for consideration of future total knee arthroplasty. Functional Status Date Functional Assessmen t No Information Instructions Date Instruction Additional Infor romana Verbal consent for t he procedure was obtained. The patient was seated with the knees bent to 90 degrees of flexion. The bilateral knees were prepped with alcohol and chlorhexidine. The skin of the right knee was anesthetized with Ethyl Chloride spray and a 22 gauge needle was used to introduce 40 mg of Kenalog and 1 mL of 2% Xylocaine into the knee joint. The area of injection was then cleaned and a sterile bandage was placed. The skin of the left knee was anesthetized with Ethyl Chloride spray and a 22 gauge needle was used to introduce 40 mg of Kenalog and 1 mL of 2% Xylocaine plain into the knee joint. The area of injection was then cleaned and a sterile bandage was placed. The procedure was completed without complication, and was well tolerated by the patient. Patient was educated on post injection care instructions and discharged in stable condition. Dictation completed with [employer] software, grammatical variances in spelling errors may inadvertently occur. Related to Bilateral primary osteoarthritis of knee Verbal consent for t he procedure was obtained. The patient was seated with the knees bent to 90 degrees of flexion. The bilateral knees were prepped with alcohol and chlorhexidine. The skin of the right knee was anesthetized with Ethyl Chloride spray and a 22 gauge needle was used to introduce 40 mg of Kenalog and 3 mL of 1% Lidocaine plain into the knee joint. The area of injection was then cleaned and a sterile bandage was placed. The skin of the left knee was anesthetized with Ethyl Chloride spray and a 22 gauge needle was used to introduce 40 mg of Kenalog and 3 mL of 1% Lidocaine plain into the knee joint. The area of injection was then cleaned and a sterile bandage was placed. The procedure was completed without complication, and was well tolerated by the patient. Patient was educated on post injection care instructions and discharged in stable condition. Dictation completed with [employer] software, grammatical variances in spelling errors may inadvertently occur. Related to Bilateral primary osteoarthritis of knee Giving encouragement to exercise Related to Body mass index [BMI] 40.0-44.9, adult Dietary management e ducation, guidance, and counseling Related to Body mass index [BMI] 40.0-44.9, adult Verbal consent for t he procedure was obtained. The patient was seated with the knees bent to 90 degrees of flexion. The bilateral knees were prepped with alcohol and chlorhexidine. The skin of the right knee was anesthetized with Ethyl Chloride spray and a 22 gauge needle was used to introduce 40 mg of Kenalog and 3 mL of 1% Lidocaine plain into the knee joint. The area of injection was then cleaned and a sterile bandage was placed. The skin of the left knee was anesthetized with Ethyl Chloride spray and a 22 gauge needle was used to introduce 40 mg of Kenalog and 3 mL of 1% Lidocaine plain into the knee joint. The area of injection was then cleaned and a sterile bandage was placed. The procedure was completed without complication, and was well tolerated by the patient. Patient was discharged in stable condition. Related to Pain in left knee Verbal consent for t he procedure was obtained. The patient was seated with the knees bent to 90 degrees of flexion. The bilateral knees were prepped with alcohol and chlorhexidine. The skin of the right knee was anesthetized with Ethyl Chloride spray and a 22 gauge needle was used to introduce 40 mg of Kenalog and 3 mL of 1% Lidocaine plain into the knee joint. The area of injection was then cleaned and a sterile bandage was placed. The skin of the left knee was anesthetized with Ethyl Chloride spray and a 22 gauge needle was used to introduce 40 mg of Kenalog and 3 mL of 1% Lidocaine plain into the knee joint. The area of injection was then cleaned and a sterile bandage was placed. The procedure was completed without complication, and was well tolerated by the patient. Patient was discharged in stable condition. Related to Bilateral primary osteoarthritis of knee Verbal consent for t he procedure was obtained. The patient was seated with the knees bent to 90 degrees of flexion. The bilateral knees were prepped with alcohol and chlorhexidine. The skin of the right knee was anesthetized with Ethyl Chloride spray and a 22 gauge needle was used to introduce 40 mg of Kenalog and 3 mL of 1% Lidocaine plain into the knee joint. The area of injection was then cleaned and a sterile bandage was placed. The skin of the left knee was anesthetized with Ethyl Chloride spray and a 22 gauge needle was used to introduce 40 mg of Kenalog and 3 mL of 1% Lidocaine plain into the knee joint. The area of injection was then cleaned and a sterile bandage was placed. The procedure was completed without complication, and was well tolerated by the patient. Patient was discharged in stable condition. Dictation completed with [employer] software, grammatical variances in spelling errors may inadvertently occur. Related to Bilateral primary osteoarthritis of knee Assessments Type Assessment Date assessment Pain in left knee assessment Pain in right knee assessment Bilateral primary osteoarthritis of knee impression Pathophysiology of t he disease process was reviewed with the patient. Imaging studies were reviewed. Continuation of conservative treatments, risks and benefits of cortisone, frequency of injection schedule, medication management and transition to total knee arthroplasty were discussed with the patient. She will continue to work on BMI reduction. She will follow up with her primary care physician to discuss utilization of ibuprofen of meloxicam together, and determine if blood work needs to be performed to evaluate for kidney damage. Discussed ongoing long-term injections, and the patient wishes to obtain 1 more injection. If this 1 does not offer her reduction to her pain recommend transition to pain management. She demonstrates appropriate understanding the diagnosis and plan of care and wishes to proceed with cortisone injection into the bilateral knees Patient Care Teams Name Effective Dates (start - stop) Status Members No Information
--- OUTSIDE RECORDS SUMMARY | 2024-06-06 14:37 | XMS_ITS | Referral Summary ---
Author Organization [facility] Address [address] [place] [address] Care Team Providers Care Fringe Weaver Name Role Phone Indira Ordoñez MD Primary Care Provider [phone] Allergies No known active allergies Medications simvastatin (ZOCOR) 20 mg tablet Take 1 tablet (20 mg total) by mouth daily 0 9 Active LITHIUM 300 mg capsule TAKE 1 CAPSULE EVERY MORNING AND 2 CAPSULES AT BEDTIME. 2 8 Active ofloxacin (FLOXIN) 0.3 % otic solution 0 Active naproxen (NAPROSYN) 500 mg tablet Take 1 tablet (500 mg total) by mouth 2 (two) times a day with meals As needed. 60 tablet 3 0 Active Additional Information Patient not taking.Reported on 10/28/2023 busPIRone (BUSPAR) 5 mg tablet Take 1 tablet (5 mg total) by mouth 2 (two) times a day 2 Active fluticasone propionate (FLONASE) 50 mcg/actuation nasal spray SPRAY 1 SPRAY INTO EACH NOSTRIL TWICE A DAY 3 Active meloxicam (MOBIC) 15 mg tablet Take 1 tablet (15 mg total) by mouth daily 2 Active metoprolol XL (TOPROL-XL) 25 mg extended release tablet Take 1 tablet (25 mg total) by mouth daily 2 Active venlafaxine XR (EFFEXOR-XR) 75 mg 24 hr capsule Take 1 capsule (75 mg total) by mouth every morning 3 Active clonazePAM (KlonoPIN) 0.5 mg tablet TAKE 0.5 OR 1 OR 2 TABLETS NEEDED FOR SEVERE ANXIETY UP TO TWO TIMES PER DAY 3 Active lamoTRIgine (LaMICtal) 100 mg tablet Take 1 tablet (100 mg total) by mouth daily 3 Active benzonatate (TESSALON) 200 mg capsule TAKE 1 CAPSULE BY MOUTH THREE TIMES A DAY NEEDED FOR COUGH FOR 5 DAYS 3 Active promethazine-DM (PROMETHAZINE-DM ) 1.25-3 mg/mL syrupIndications :Cough, unspecified type Take 5 mL by mouth every 4 (four) hours as needed for cough 120 mL 3 Active Additional Information Patient not taking.Reported on 10/28/2023 al & mag hydroxide simethicone-diph enhydramine-lido terrell-nystatin (MAGIC MOUTHWASH) suspension 7-2-3-1Indicatio ns:Thrush Swish and swallow 10 mL every 4 (four) hours as needed (throat) 100 mL 3 Active Additional Information Patient not taking.Reported on 10/28/2023 Active Problems Problem Noted Date Diagnosed Date Neck mass 07/23/2022 Primary osteoarthritis of right knee 11/15/2019 Osteoarthritis of left knee 11/15/2019 Arthritis of right hip 11/15/2019 Seborrheic keratoses 09/07/2017 Multiple benign melanocytic nevi of upper and lower extremities and trunk 09/07/2017 Lentigines 09/07/2017 Restless legs 09/18/2014 Adiposity 09/03/2013 Overview (07/23/2016): Obesity Gastroesophageal reflux disease 09/03/2013 Overview (07/23/2016): GERD (gastroesophageal reflux disease) Hypothyroidism 09/03/2013 Overview (07/25/2016): Hypothyroid Tobacco dependence syndrome 09/03/2013 Overview (07/25/2016): Tobacco abuse Hyperlipidemia 09/03/2013 Overview (07/25/2016): Hyperlipidemia Bipolar affective disorder 09/03/2013 Overview (07/25/2016): Bipolar affective disorder Obstructive sleep apnea syndrome 04/29/2013 Cervicalgia 11/14/2011 Pain in extremity 11/14/2011 Bipolar I disorder, most recent episode depresse d ([facility]) 02/14/2010 Severe bipolar I disorder, m ost recent episode mixed, with psychotic features ([facility]) 02/14/2010 Immunizations Immunization Administration Dates Next Due Influenza, Quadrivalent, Split, Intramuscular Influenza, Quadrivalent, Spl it, Preservative Free, Intramuscular 05/01/2019 Influenza, Split 03/18/2011 Influenza, Trivalent, IM (MDV) 03/11/2013,2012 Tdap 09/06/2015,01/01/2011 Social History Tobacco Use Types Packs/Day Years Used Date Smoking Tobacco: Every Day Smokeless Tobacco: Never Tobacco Cessation:Ready to Q uit: Not Asked; Counseling Given: Not Answered Comments:Smoking History Packs/day: 1 Packs Alcohol Use Standard Drinks/Week Comments No 0 (1 standard drink = 0.6 oz pur e alcohol) Comments No Sex and Gender Information Value Date Recorded Sex Assigned at Not on file 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[employer] Gender Identity Female 11/09/2019 8:55 AM CDT Sexual Orientation Straight 11/09/2019 8: 55 AM CDT 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 Not on file Not on file Not on file Last Filed Vital Signs Vital Sign Reading Time Taken Comments Blood Pressure 133/80 10/28/2023 11:49 AM CDT Pulse 61 10/28/2023 11:49 AM CDT Temperature 36.9 C (98.4 F) 10/28/2023 11:49 AM CDT Respiratory Rate 18 10/28/2023 11:4 9 AM CDT Oxygen Saturation 97% 10/28/2023 11: 49 AM CDT Inhaled Oxygen Concentration - - Weight 102.4 kg (225 lb 12.8 oz) 2023 11:49 AM CDT Height 152.4 cm (5') 10/28/2023 11:49 AM CDT Body Mass Index 44.1 10/28/2023 11:49 AM CDT Plan of Treatment Not on file Insurance [employer] ACCESS CHOICE [employer] ACCESS CHOICE Care Teams Fringe Weaver Relationship Specialty Start Date End Date Indira Ordoñez MD PCP - General 07/04/19
--- OUTSIDE RECORDS SUMMARY | 2024-06-06 14:37 | XMS_ITS | Clinical Summary ---
Author Organization [facility] Address [address] [place] [address] Care Team Providers Care Poker Supervisor Name Role Phone Indira Ordoñez MD Primary Care Provider [phone] Allergies No known active allergies Medications simvastatin [...] hydroxide simethicone-diph enhydramine-lido terrell-nystatin (MAGIC MOUTHWASH) suspension 7-1-8-1Indicatio ns:Thrush Swish and swallow 10 mL every [...] I disorder, most recent episode depresse d ([facility] 02/14/2010 Severe bipolar I disorder, m ost recent episode mixed, with psychotic features ([facility]) 02/14/2010 Immunizations Immunization Administration Dates Next Due Influenza, Quadrivalent, Split, Intramuscular Influenza, Quadrivalent, Spl it, Preservative Free, Intramuscular 05/01/2019 Influenza, Split 03/18/2011 Influenza, Trivalent, IM (MDV) 03/11/2013,2012 Tdap 09/06/2015,01/01/2011 Surgical History Surgery Date Site/Laterality Comments OTHER SURGICAL HISTORY 2010 Abnormal pap smear: colposcopy Medical History Medical History Date Comments Hx Other Medical Abnormal pap sm ear; Outcome: free of disease Family History Medical History Relation Name Comments Other Brother 2 Alive and well; Other Father Cancer -mesothe lioma; Cause of : Cancer -mesothelioma Osteoarthritis Mother mother Osteoarthriti s; Other Sister 2 Alive and well; Breast cancer Neg Hx Colon cancer Neg Hx Ovarian cancer Neg Hx Uterine cancer Neg Hx Relation Name Status Comments Brother 1 Alive Brother 2 Father (Age 82) Mother mother Alive Sister 1 Alive Sister 2 Social History Tobacco Use Types Packs/Day Years [...] on file 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 Gender Identity Female 11/09/2019 8:55 AM CDT Sexual Orientation Straight 11/09/2019 8: 55 AM CDT 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 Not on file Not on file Not on file Obstetrics History Para Term AB IAB SAB Ectopic Multiple Livin g Live Births 2 2 Date Outcome GA Total Labor Labor/2nd/3rd Weight Sex Type Anes PTL Zoraida A1 A5 Name Clin 1991 Para 3.459 kg (7 lb 10 oz) Vag-Sp ont 1993 Para 3.685 kg (8 lb 2 oz) CS-Uns pec Last Filed Vital Signs Vital Sign Reading [...] 10/28/2023 11:49 AM CDT Plan of Treatment Health Maintenance Due Date Last Done Comments Breast Cancer Screening-Mammogram 1963 Cervical Cancer Screening 1963 Colon Cancer Screening-Colonoscopy 1963 Depression Screening 1963 Hepatitis C Screening 1963 Pneumococcal vaccine <65 (1 of 2 - PCV) 1969 Hepatitis B Screening 1981 Zoster Vaccine (1 of 2) 2013 Regular Well Visit/Exam 18-64 06/09/2020 06/09/2019 Influenza Vaccine (#1) 2023 0, 02/18/2015, 03/11/2013, Additional history exists DTaP/Tdap/Td Vaccine (3 - Td or Tdap) 09/05/2025 09/06/2015, 01/01/2011 Insurance [employer] ACCESS CHOICE [employer] ACCESS CHOICE Care Teams Poker Supervisor Relationship Specialty Start Date End Date Indira Ordoñez MD PCP - General 07/04/19
--- OUTSIDE RECORDS SUMMARY | 2024-06-06 14:37 | XMS_ITS | Data Portability ---
Author Organization [facility] [place] Address [address] [place] [address] Assessment No assessment recorded. Plan of Treatment Reminders Order Date Submit Date Provider Last Modified By Organization Details Last Modified Time Details Appointments None recorded. Lab None recorded. Referral None recorded. Procedures None recorded. Surgeries None recorded. Imaging US, pelvis 2021 022 [email or web address] [place], [address], [place], [address], 23:20:48 US, transvagina l 2021 022 [email or web address] [place], [address], [address], [place], [address], 23:20:48 US, pelvis, complete 2021 022 [email or web address] [place], [address], [place], [address], 10:41:25 Medication Orders None recorded. Patient TargetsNo targets recorded. Patient InstructionsNo instructions recorded. Reason for Referral None Reported. 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 Atrop hic imtiaz duval rn. Elect andria arroyo ashlie d by Shannon saunders, [place] argueta, [place] on 2021 at 8:00 AM ----- ----- ----- ----- ----- ----- ----- ----- ----- ----- ----- ----- ----- ----- ----- ----- ----- ---- HPV RESUL TS: HPV mRNA E6/E7 : No HPV mRNA Detec etelvina NOTE: This high risk HPV mRNA assay detec ts fourt een high- risk HPV types (16, 18, 31, 33, 35, 39, 45, 51, 52, 56, 58, 59, 66, 68) witho ut diffe renti ation . COMME NT: Note: This speci men was revie wed by a Cytot echno logis t and/o r Patho logis t (as indic ated in this repor t) after evalu ation using the Thinp rep Imagi ng Syste m. CLINI AIDA INFOR MATIO N: Menst rual Statu s: LMP (if appli cable ): Clini aida Histo ry/Pr eviou s Pap: Type of Neopl antoine (if appli cable ): Signi fican t Clini aida Findi ngs: Other Histo ry: Hormo brenda (if appli cable ): PAP EDUCA LATRICIA L NOTE: The Pap Test is a scree matthew test with an inher ent false negat kaylah rate. Liqui d-bas ed sampl ing may decre ase, but will not elimi jada, false negat kaylah resul ts. A negat kaylah resul t does not precl ude the prese nce and/o r devel opmen t of disea se, since the prese nce of abnor mal cells in the sampl e depen ds on the locat ion of the lesio n and sampl ing techn ique. Perla nued regul ar scree matthew is the best metho d of cance r preve ntion . If repor etelvina cytol ogic findi ng do not corre late with physi aida and/o r histo rical findi ngs, furth er inves tigat ion is recom pj d, as clini mark maryanne nted. Not Available [facility] [address] [place], [address], 10/28/2021 09:03:34 10/23/19 22 10/22/2021 TRICH OMONA S VAGIN ROE (RRNA ) trichomonas vaginalis ribosomal RNA (rrna) Negati ve negati ve Not Available [facility] [address] [address] [place], [address], 10/28/2021 09:03:35 10/23/19 22 10/22/2021 CT/GC (FRANSISCA) , THINP REP VIAL chlamydia trachomatis, PCR Negati ve negati ve Not Available [facility] [address] [place], [address], 10/28/2021 09:03:35 10/23/19 22 10/22/2021 CT/GC (FRANSISCA) , THINP REP VIAL neisseria gonorrhoeae, PCR Negati ve negati ve Not Available [facility] [address] [place], [address], 10/28/2021 09:03:35 11/12/19 22 11/11/2021 , calvin s No observ ation record ed. [email or web address] [place] [address], [place], [address], 11/11/2021 12:59:22 11/12/19 22 11/11/2021 US, trans vagin al No observ ation record ed. [email or web address] [place] [address], [place], [address], 11/11/2021 12:59:31 11/12/19 22 11/11/2021 US, pelvi s No observ ation record ed. [facility] [address], [place], [address], 11/12/2021 11:15:11 Result Notes None recorded. Procedures Surgical History Date Name Laterality Status Provider Name and Address Organization Details Recorded Time 2 Date of Last Mammogram completed [facility] 10/22/2021 16:22:56 4 section completed [facility] 10/22/2021 16:25:20 Imaging Results Imaging Date Name Status LastModified by Organization Details LastModified Time 11/11/2021 US, pelvis completed [email or web address] [place] [address], [place], [address], 11/11/2021 12:59:22 11/11/2021 US, transvaginal [email or web address] [address], [place], [address], 11/11/2021 12:59:31 11/11/2021 US, pelvis completed [facility] [address], [place], [address], 11/12/2021 11:15:11 Procedure Notes None recorded. Medical Equipment None Reported. Allergies No known drug allergies Medications Name Sig Start Date Stop Date Status Note LastModified by Organization Details LastModified Time buspirone 5 mg tablet TAKE 1 TABLET BY MOUTH TWICE A DAY WITH MEALS FOR 90 DAYS active Not Available Not Available No t Available prednisone 10 mg tablet TAKE 1 TABLET 3 TIMES A DAY X 3 DAYS, 1 TAB TWICE DAILY X 2 DAYS THEN 1 TAB ONCE DAILY X 1 DAY 10/22 completed Not Available Not Available Not Available venlafaxine ER 75 mg capsule,ext ended release 24 hr TAKE 1 CAPSULE BY MOUTH EVERY DAY IN THE MORNING 10/22 completed Not Available Not Available Not Available meloxicam 15 mg tablet TAKE 1 TABLET BY MOUTH EVERY DAY active Not Available Not Available No t Available venlafaxine ER 150 mg capsule,ext ended release 24 hr TAKE 1 CAPSULE BY MOUTH EVERY DAY IN THE MORNING FOR 90 DAYS active Not Available Not Available No t Available penicillin V potassium 500 mg tablet TAKE 1 TABLET BY MOUTH 4 TIMES A DAY UNTIL FINISHED 10/22 completed Not Available Not Available Not Available amoxicillin 500 mg tablet TAKE 1 TABLET BY MOUTH EVERY 8 HOURS FOR 10 DAYS active Not Available Not Available No t Available lithium carbonate ER 450 mg tablet,exte nded release TAKE 1 TABLET BY MOUTH TWICE A DAY DIRECTED FOR 90 DAYS active Not Available Not Available No t Available lamotrigine 25 mg tablet TAKE 2 TABLETS BY MOUTH EVERY DAY active Not Available Not Available No t Available cephalexin 500 mg capsule TAKE 1 CAPSULE BY MOUTH EVERY 12 HOURS FOR 7 DAYS. 10/22 completed Not Available Not Available Not Available simvastatin 20 mg tablet TAKE 1 TABLET BY MOUTH EVERY DAY active Not Available Not Available No t Available furosemide 20 mg tablet TAKE 1 TABLET BY MOUTH ONCE DAILY FOR 5 DAYS. active Not Available Not Available No t Available metoprolol succinate ER 25 mg tablet,exte nded release 24 hr TAKE 1 TABLET BY MOUTH EVERY DAY active Not Available Not Available No t Available methylpredn isolone 4 mg tablets in a dose pack TAKE 6 TABLETS ON DAY 1 DIRECTED ON PACKAGE AND DECREASE BY 1 TAB EACH DAY FOR A TOTAL OF 6 DAYS 10/22 completed Not Available Not Available Not Available naproxen 500 mg tablet TAKE 1 TABLET BY MOUTH TWICE A DAY WITH MEALS NEEDED active Not Available Not Available No t Available amoxicillin 875 mg-potassiu m clavulanate 125 mg tablet TAKE 1 TABLET BY MOUTH EVERY 12 HOURS X10 DAYS 10/22 completed Not Available Not Available Not Available aripiprazol e 15 mg tablet TAKE 1 TABLET BY MOUTH EVERYDAY AT BEDTIME active Not Available Not Available No t Available Imvexxy Starter Pack 4 mcg vaginal insert, dose pack INSERT 1 VAGINAL INSERT (4 MCG) BY VAGINAL ROUTE ONCE DAILY FOR 2 WEEKS THEN 1 INSERT (4 MCG) TWICE WEEKLY FOR DURATION OF USE 2021 active Not Available Not Available Not Avai lable Vitals Date Recorded Body height Body mass index (BMI) Body weight Provider Name and Address Organization Details Last Updated DateTime 10/22/2021 152.4 cm 47.4 kg/m2 107398.23 g Carolina Sabillon [facility] 10/22/2021 16:19:22 Date Recorded Systolic blood pressure Diastolic blood pressure Systolic blood pressure Diastolic blood pressure Provider Name and Address Organization Details Last Updated DateTime 10/22/2021 160 mm[Hg] 88 mm[Hg] 142 mm[Hg] 84 mm[Hg] Valeria Keller, [facility]- [address], [place], [address], [facility] 16:40:42 Social History Question Answer Notes LastModified by Organizat ion Details LastModified Time Tobacco Smoking Status Current Every Day Smoker Carolina Sabillon [facility] 10/22/2021 16:24:57 What Is Your Level Of Alcohol Consumption? Occasional Information not available 10/22/2021 Are You Blind Or Do You Have Difficulty Seeing? No Information not available 10/22/2021 What Is Your Level Of Caffeine Consumption? Occasional Information not available 10/22/2021 Are You Deaf Or Do You Have Serious Difficulty Hearing? No Information not available 10/22/2021 What Type Of Diet Are You Following? REGULAR Information not available 10/22/2021 Do You Use Your Seat Belt Or Car Seat Routinely? Yes Information not available 10/22/2021 Do You Have Smoke And Carbon Monoxide Detectors In Your Home? Yes Information not available 10/22/2021 Do You Feel Stressed (tense, Restless, Nervous, Or Anxious, Or Unable To Sleep At Night)? [id number] Information not available 10/22/2021 Do You Use Any Illicit Or Recreational Drugs? No Information not available 10/22/2021 Do You Use Sunscreen Routinely? Yes Information not available 10/22/2021 Sex: Unknown Functional Status Question Answer Note LastModified by Organizat ion Details LastModified Time Do you have difficulty walking or climbing stairs? No Information not available 10/22/2021 Are you able to walk? YESWOREST Information not available 10/22/2021 Are you able to care for yourself? Yes Information not available 10/22/2021 Do you have difficulty dressing or bathing? No Information not available 10/22/2021 What is your exercise level? Moderate Information not available 10/22/2021 Mental Status None recorded. Family History Relationship Description Onset Age of this Age Resolved Age Notes LastModified by Organization Details LastModified Time Maternal Grandmother Diabetes mellitus Not available 2021 16:24:22 Brother Heart disease Not available 2021 16:24:28 Medical History No medical history recorded. Gynecological History Statement/Question Response Abnormal Pap N Date of Last Mammogram 04/20/2011 Sexually Active? N STIs/STDs N Menses Monthly N Age of first menstrual cycle 13 HPV Vaccine N Date of Last Pap Smear Sexual Problems? N Current Control Method Menopause LMP Unknown Obstetrics History GPAL:G 2 P 0 0 0 2 Type Value Living 2 Total 2 Past Encounters Encounter ID Performer Location Encounter Start Date Encounter Closed Date Diagnosis/Indication Diagnosis SNOMED-CT Code Diagnosis ICD10 Code Diagnosis Note [id number] [facility] [address] [address] 10/22/2021 15:27:17 10/22/2021 17:02:33 Pain in pelvis 31125057 R10.2 This patient is a 54 -year-old female with pelvic pain. We have agreed to complete the evaluation with pelvic ultrasound . The patient will return after the pelvic ultrasound to discuss those findings and to develop a treatment plan. A comprehens kaylah history and physical exam was performed today. We spent over 25 minutes face-to-fa ce. The patient was given precaution s. She will contact clinic if pelvic pain increases in frequency or intensity. Also notify clinic of any new symptoms associated with pelvic pain. She does not appear to have an acute pelvic infection today, but was asked to contact us Immediatel y with nausea, vomiting, fever, chills.Adv ised to go check in with PCP for BP readings today.Isaac es SOB/Chest pain/Numbn ess/tingli ng. Question if this is more of a GI issue vs MANAGER SECURITY issue.Will await updated US result & decide if referral to PCP/GI is required. Gynecologi c examination 25904538 Z01.419 Take Calcium with Vitamin D 12-1500mg daily. Do monthly self breast exams. It is advised to get annual flu shot in the fall and she could obtain at [facility] or [facility] take care clinic. If you haven't received the Tdap vaccine in the last 10 years you should obtain one as well. Have mammogram yearly, bone density every 2-3 years and colonoscop y every 5-10 years depending on findings and history. Engage in daily exercise of low impact aerobic exercise 45-60 minutes 4-5 times weekly. Avoid tobacco and illicit drugs as well as using moderation with alcohol intake less than 1-2 8 oz beverages daily. This lifestyle behavior pattern will lead to less health conditions and longer life span. If BMI greater than 25 weight watchers or dietary consult advised. Questions have been answered. Patient appears to understand instructio ns, but if you have any further questions call or respond to this email Pap/hpv sent STD Screen sent Genetic Screen discussed Colon Screen UTD PCP Dexa Screen UTD PCP Routine Labs UTD PCPMammo ordered [id number] [facility] [address] [address] 11/11/2021 11:59:14 11/11/2021 12:43:02 Pain in pelvis 18520187 R10.2 Health Concerns Section Related Observation LastModified by Organization Detai ls LastModified Time None Recorded Concern Status LastModified by Organization Details LastModified Time None Recorded Advance Directives Directive None Recorded Payers Encounter Date Sequence Insurance Name Policy Number Policy Wiggins Covered Member ID Wiggins Member ID Guarantor Name 10/22/2021 1 [employer] [id number] Malgorzata Maher [id number] Malgorzata Mishrar 11/11/2021 1 [facility] [id number] 3 Malgorzata Mishrar [id number] Malgorzata Maher Notes Date Note Type Note Provider Name and Address Organization Details Recorded Time 2 text/html 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 [place] Post-MenopausalReporte d bypatient.Menopausal Symptoms:no menopausal symptoms; normal vaginal lubrication Vaginal Bleeding:history of menopause having occurred; no history of post menopausal bleeding Urinary Symptoms:no hematuria; no incontinence; no nocturia; no urinary frequency Vulva:no genital lesion; no vulvar atrophy Vagina:normal vaginal discharge; no vaginal atrophy Breast:no breast lump; no nipple discharge; no breast pain Sexual Complaints:no sexual complaints Psychological Symptoms:no depression; no anxiety Preventive Measures:encourage regular mammograms starting age 40; encourage self breast examination; encourage regular exercise; encourage no tobacco use; needs to schedule mammogram; history of recent colonoscopyPelvic Pain/PressureReported bypatient.Location:libby ateral Quality:intermittent (Cramping type feeling random. Unable to connect it with any activity/food/drink/st ress. Will last upwards of 30mins to a few hours. Still able to function but feels these episodes are lasting longer. Doesn't use anything for pain regarding this issue. Has not went to her PCP for any similar complaints. Will have some loose stools following the cramping sometimes.) Severity:mild Duration:present for 2-3 months (8mos) Onset/Timing:intermitt ent episodes lasting: Alleviating Factors:none Associated Symptoms:no back pain; no chills; no constipation; no dribbling; no pain with urination; normal emptying of bladder; no blood in semen; no blood in the urine; no hesitancy; normal libido; no nausea; no vomiting; no nocturia; no urine odor; no straining; no incontinence; no fever; no feelings of urgency; no urge incontinence;abdominal pain(Lower abd/pelvic area cramping.);diarrhea [place] [facility]- [address], [place], [address], [place] [facility] 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 10/23/19 22 1 CLOSED Fetus Data First Name Last Name Admitted to NICU Weight (g) Sex Living Outcome Pediatric Complications Fetus ID Race Codes Race Delivery Type M [id number] Vaginal Delivery Osmar Calculation Initial Osmar Date Initial Exam Date Initial Exam Provider Initial Ultrasound Date Last Menstrual Period Date Ultra Sound Weeks Gestation 0 Eighteen To Twenty Week Osmar Update Ultra Sound Date Fundal Height At Umbil Quickening Date Ultra Sound Latest Weeks Gestation Final Osmar Confirmed By Final Osmar Confirmed Date Final Osmar Date Ultra Sound Latest Days Gestation 0 0 Menstrual History Last Menstrual Date Menses Monthly On Bcp Conception Prior Menses Frequency Hcg Plus Date Menarche Onset Age Delivery Information Delivery Date Delivery Type Labor Anesthesia Weeks Gestation Incision Type Labor Labor Length Hrs Delivered By Post Complications Tubal Sterilization Discharge Date Comments 2 Discharge Information Feeding Method Contraceptive Method Maternal HG B and HCT Levels Ob Episode Information Episode Created Date Number of Fetuses Patient Bloodtype Patient rh Status Prepregnancy Weight lbs Domestic Partner Domestic Partner Phone Father Name 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 Teacher Status 10/23/19 22 1 CLOSED Fetus Data First Name Last Name Admitted to NICU Weight (g) Sex Living Outcome Pediatric Complications Fetus ID Race Codes Race Delivery Type M [id number] Primary Osmar Calculation Initial Osmar Date Initial Exam Date Initial Exam Provider Initial Ultrasound Date Last Menstrual Period Date Ultra Sound Weeks Gestation 0 Eighteen To Twenty Week Osmar Update Ultra Sound Date Fundal Height At Umbil Quickening Date Ultra Sound Latest Weeks Gestation Final Osmar Confirmed By Final Osmar Confirmed Date Final Osmar Date Ultra Sound Latest Days Gestation 0 0 Menstrual History Last Menstrual Date Menses Monthly On Bcp Conception Prior Menses Frequency Hcg Plus Date Menarche Onset Age Delivery Information Delivery Date Delivery Type Labor Anesthesia Weeks Gestation Incision Type Labor Labor Length Hrs Delivered By Post Complications Tubal Sterilization Discharge Date Comments 4 Discharge Information Feeding Method Contraceptive Method Maternal HG B and HCT Levels
== END 2024-06-06 11:50 | disposition home or self-care (01) ==
LOC: ANHLAB 11:51
PROVIDERS: PCP Family Medicine; Visit Provider Family Medicine
DX: J06.9 Acute upper respiratory infection, unspecified (principal)
CPT/HCPCS: 87637

== ENCOUNTER 2024-07-07 00:53 | Day surgery (SDC) | payer BC, SELFPAY ==
[2024-07-05 14:19] VITALS: BMI 43.0
--- OUTSIDE RECORDS SUMMARY | 2024-07-07 00:56 | XMS_ITS | Clinical Summary ---
Author Organization [facility] Address [address] [place] [address] Care Team Providers Care Supervisor Braiding Name Role Phone Unavailable Primary Care Provider [...]
--- OUTSIDE RECORDS SUMMARY | 2024-07-07 00:56 | XMS_ITS | Clinical Summary ---
Author Organization [facility] 40 Address [address] [place] [address] Care Team Providers Care Grease Packer Name Role Phone Indira Ordoñez MD Primary Care Provider [phone] Allergies No known active allergies Medications simvastatin (ZOCOR) 20 mg tablet Take 1 tablet (20 mg total) by mouth daily 0 05/15/19 19 Active LITHIUM 300 mg capsule TAKE 1 CAPSULE EVERY MORNING AND 2 CAPSULES AT BEDTIME. 2 04/16/20 18 Active ofloxacin (FLOXIN) 0.3 % otic solution 11/01/19 20 Active naproxen (NAPROSYN) 500 mg tablet Take 1 tablet (500 mg total) by mouth 2 (two) times a day with meals As needed. 60 tablet 3 11/15/19 20 Active Additional Information Patient not taking.Reported on 06/13/2024 busPIRone (BUSPAR) 5 mg tablet Take 1 tablet (5 mg total) by mouth 2 (two) times a day 04/10/20 22 Active fluticasone propionate (FLONASE) 50 mcg/actuation nasal spray SPRAY 1 SPRAY INTO EACH NOSTRIL TWICE A DAY 05/14/19 23 Active meloxicam (MOBIC) 15 mg tablet Take 1 tablet (15 mg total) by mouth daily 02/26/20 22 Active metoprolol XL (TOPROL-XL) 25 mg extended release tablet Take 1 tablet (25 mg total) by mouth daily 03/17/20 22 Active clonazePAM (KlonoPIN) 0.5 mg tablet TAKE 0.5 OR 1 OR 2 TABLETS NEEDED FOR SEVERE ANXIETY UP TO TWO TIMES PER DAY 01/02/20 23 Active lamoTRIgine (LaMICtal) 100 mg tablet Take 1 tablet (100 mg total) by mouth daily 10/17/19 23 Active benzonatate (TESSALON) 200 mg capsule TAKE 1 CAPSULE BY MOUTH THREE TIMES A DAY NEEDED FOR COUGH FOR 5 DAYS 02/15/20 23 Active promethazine-DM (PROMETHAZINE-D M) 1.25-3 mg/mL syrupIndication s:Cough, unspecified type Take 5 mL by mouth every 4 (four) hours as needed for cough 120 mL 03/10/20 23 Active Additional Information Patient not taking.Reported on 06/13/2024 al & mag hydroxide simethicone-dip henhydramine-li docaine-nystati n (MAGIC MOUTHWASH) suspension 9-3-5-1Indicati ons:Thrush Swish and swallow 10 mL every 4 (four) hours as needed (throat) 100 mL 03/10/20 23 Active Additional Information Patient not taking.Reported on 06/13/2024 venlafaxine XR (EFFEXOR-XR) 150 mg 24 hr capsule Take 1 capsule (150 mg total) by mouth daily 06/02/19 25 Active predniSONE (DELTASONE) 10 mg tablet PLEASE SEE ATTACHED FOR DETAILED DIRECTIONS 06/07/19 25 Active cefadroxil (DURICEF) 500 mg capsule TAKE 1 CAPSULE BY MOUTH TWICE A DAY X10 DAYS 06/07/19 25 Active fluticasone propionate (FLONASE) 50 mcg/actuation nasal spray Administer 2 sprays into each nostril daily 1 each 06/13/19 25 Active venlafaxine XR (EFFEXOR-XR) 75 mg 24 hr capsule Take 1 capsule (75 mg total) by mouth every morning 05/11/19 23 025 Discontinued Active Problems Problem Noted Date Diagnosed Date [...] I disorder, most recent episode depresse d 02/14/2010 Severe bipolar I disorder, m ost recent episode mixed, with psychotic features 02/14/2010 Encounters Date Type Department Care Team Description 06/14/2024 Results Follow-Up [facility] at [address] [address] Violette Mcneil NP 06/13/2024 2:58 PM MACHINE HEDDLE CLEANER - 06/13/2024 11:59 PM MACHINE HEDDLE CLEANER [place] [address] Flu-like symptoms Discharge Disposition: Discharge to home or self care 06/13/2024 12:45 PM MACHINE HEDDLE CLEANER Office Visit [facility] at [address] [address] Sigifredo Brady NP Flu-like symptoms (Primary Dx) from Last 3 Months Immunizations Immunization Administration Dates Next Due Influenza, [...] on file Legal Sex Female 9:05 PM MACHINE HEDDLE CLEANER Gender Identity Female 11/09/2019 8:55 AM CDT Sexual Orientation Straight 11/09/2019 8: 55 AM CDT 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 Not on file Not [...] Sign Reading Time Taken Comments Blood Pressure 142/80 06/13/2024 1:01 PM MACHINE HEDDLE CLEANER Pulse 89 06/13/2024 1:01 PM MACHINE HEDDLE CLEANER Temperature 37.6 C (99.7 F) 06/13/2024 12:38 PM MACHINE HEDDLE CLEANER Respiratory Rate 24 06/13/2024 12:38 PM MACHINE HEDDLE CLEANER Oxygen Saturation 98% 06/13/2024 1:01 PM MACHINE HEDDLE CLEANER Inhaled Oxygen Concentration - - Weight 102.1 kg (225 lb) 06/13/2024 12:38 PM MACHINE HEDDLE CLEANER Height 152.4 cm (5') 06/13/2024 12:38 PM MACHINE HEDDLE CLEANER Body Mass Index 43.94 06/13/2024 12:38 PM MACHINE HEDDLE CLEANER Plan of Treatment Health Maintenance Due Date Last Done Comments Breast Cancer Screening-Mammogram 1965 Cervical Cancer Screening 1963 Colon Cancer Screening-Colonoscopy 1963 Depression Screening 1963 Hepatitis C Screening 1963 Hepatitis B Screening 1981 Pneumococcal vaccine <65 (1 of 2 - PCV) 1982 Zoster Vaccine (1 of 2) 2013 Regular Well Visit/Exam 18-64 06/09/2020 06/09/2019 Influenza Vaccine (#1) 2023 0, 02/18/2015, 03/11/2013, Additional history exists DTaP/Tdap/Td Vaccine (3 - Td or Tdap) 09/05/2025 09/06/2015, 01/01/2011 Procedures Procedure Name Priority Date/Time Associated Diagnosis Comments INFLUENZA A/B, RSV, AND COVID-19 PCR Routine 06/13/2024 2:58 PM MACHINE HEDDLE CLEANER Flu-like symptoms from Last 3 Months Results * Influenza A/B, RSV, and COVID-19 PCR Nasopharyngeal (06/13/2024 2:58 PM MACHINE HEDDLE CLEANER) COVID-19 RNA Negative Negative Influenza A RNA Negative Negative [facility] Influenza B RNA Negative Negative [facility] RSV RNA Negative Negative [facility] Comment: Interpretive data: Testing performed by [facility]. This test is performed using the iOmando Xpert Xpress CoV-2/Flu/RSV plus assay. This is a multiplex, real-time reverse transcriptase PCR assay intended for the qualitative detection of nucleic acid from SARS-CoV-2, influenza A, influenza B, and respiratory syncytial virus. This assay has been cleared by the [place] Food and Drug administration. The performance characteristics have been verified by the [facility]. Results must be considered in the clinical context, and a negative result does not rule out infection. Interpretive Data last revised 2023 Nasopharyngeal 06/13/2024 2: 58 PM MACHINE HEDDLE CLEANER 06/13/2024 9:09 PM MACHINE HEDDLE CLEANER Narrative [facility] - 06/13/2024 10:41 PM MACHINE HEDDLE CLEANER Is the Patient experiencing symptoms consistent with COVID?->Yes Sigifredo Brady GROUND WATER TECHNICIAN LAB MICROBIOLOGY - GENERAL ALEJANDRASarah DEVON Final Result [facility] [address] [place] [address] from Last 3 Months Insurance [employer] ACCESS CHOICE Care Teams Grease Packer Relationship Specialty Start Date End Date Indira Ordoñez MD [facility] - General 07/04/19
--- OUTSIDE RECORDS SUMMARY | 2024-07-07 00:56 | XMS_ITS | Referral Summary ---
Author Organization [facility] [address] Address [address] [place] [address] Care Team Providers Care Food Operations Manager Name Role Phone Indira Ordoñez MD Primary Care Provider [phone] Encounters Date Type Department Care Team Description 06/14/2024 Results Follow-Up [facility] at [address] [address] Violette Mcneil NP 06/13/2024 2:58 PM STRING TOP SEALER - 06/13/2024 11:59 PM STRING TOP SEALER Hospital Encounter [address] [address] Flu-like symptoms Discharge Disposition: Discharge to home or self care 06/13/2024 12:45 PM STRING TOP SEALER Office Visit [facility] Care at [address] [phone] Sigifredo Brady NP Flu-like symptoms (Primary Dx) from Last 3 Months Allergies No known active allergies Medications simvastatin [...] simethicone-dip henhydramine-li docaine-nystati n (MAGIC MOUTHWASH) suspension 7-1-1-1Indicati ons:Thrush Swish and swallow 10 mL every [...] recent episode mixed, with psychotic features 02/14/2010 Immunizations Immunization Administration Dates Next Due [...] on file Legal Sex Female 9:05 PM STRING TOP SEALER Gender Identity Female 11/09/2019 8:55 AM CDT Sexual Orientation Straight 11/09/2019 8: 55 AM CDT 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 Not on file Not on file Last Filed Vital Signs Vital Sign Reading Time Taken Comments Blood Pressure 142/80 06/13/2024 1:01 PM STRING TOP SEALER Pulse 89 06/13/2024 1:01 PM STRING TOP SEALER Temperature 37.6 C (99.7 F) 06/13/2024 12:38 PM STRING TOP SEALER Respiratory Rate 24 06/13/2024 12:38 PM STRING TOP SEALER Oxygen Saturation 98% 06/13/2024 1:01 PM STRING TOP SEALER Inhaled Oxygen Concentration - - Weight 102.1 kg (225 lb) 06/13/2024 12:38 PM STRING TOP SEALER Height 152.4 cm (5') 06/13/2024 12:38 PM STRING TOP SEALER Body Mass Index 43.94 06/13/2024 12:38 PM STRING TOP SEALER Plan of Treatment Not on file Procedures Procedure Name Priority Date/Time Associated Diagnosis Comments INFLUENZA A/B, RSV, AND COVID-19 PCR Routine 06/13/2024 2:58 PM STRING TOP SEALER Flu-like symptoms from Last 3 Months Results * Influenza A/B, RSV, and COVID-19 PCR Nasopharyngeal (06/13/2024 2:58 PM STRING TOP SEALER) COVID-19 RNA Negative Negative [facility] Influenza A RNA Negative Negative [facility] Influenza B RNA Negative Negative [facility] RSV RNA Negative Negative [facility] Comment: Interpretive data: Testing performed by [facility]. This test is performed using the Photowhoa Xpert Xpress CoV-2/Flu/RSV plus assay. This is a multiplex, real-time reverse transcriptase PCR assay intended for the qualitative detection of nucleic acid from SARS-CoV-2, influenza A, influenza B, and respiratory syncytial virus. This assay has been cleared by the [place] Food and Drug administration. The performance characteristics have been verified by the [facility]. Results must be considered in the clinical context, and a negative result does not rule out infection. Interpretive Data last revised 2023 Nasopharyngeal 06/13/2024 2: 58 PM STRING TOP SEALER 06/13/2024 9:09 PM STRING TOP SEALER Narrative [facility] - 06/13/2024 10:41 PM STRING TOP SEALER Is the Patient experiencing symptoms consistent with COVID?->Yes us Sigifredo Brady NP LAB MICROBIOLOGY - GENERAL JUAN LUIS OSORIO Final Result [facility] [address] Department [place] [address] from Last 3 Months Insurance [employer] ACCESS CHOICE Care Teams Food Operations Manager Relationship Specialty Start Date End Date Indira Ordoñez MD PCP - General 07/04/19
--- OUTSIDE RECORDS SUMMARY | 2024-07-07 00:56 | XMS_ITS | Continuity of Care Document ---
Author Organization [facility] Address [address] [place] [address] Phone Care Team Providers Care Air Saw Operator Name Role Phone Stack Axel VENTURA Unavailable [...] X-ray exam knee, 4+ views Office/outpatient visit,new, [facility] 2020 Advance Directives Directive Yes / No Effective Date File Name No Information Encounters Encounter Description Practice Location Reason(s) For Visit Diagnoses Date Provider Providers Copied on Encounter Office/outpat ient visit,est, mod [facility], [address] [address], [place], [place], [id number], [place] tel:[phone] [facility] bilat knees (chief complaint) Pain in left kneePain in right kneeBilateral primary osteoarthritis of knee 2 Stack Axel. [address] [place] [address], [place], [place], [id number] , [place]. tel: [phone] [facility], [address], [id number], [place] tel:[phone] [facility] Bilateral knees (chief complaint) Pain in left kneePain in right kneeBilateral primary osteoarthritis of knee 2 Stack Axel. [address] [facility] [address], [place], [place], [id number] , [place]. tel: [phone] [facility], [address], [place], [place], [id number], [place] tel:[phone] [facility] Bilateral knees (chief complaint) Bilateral primary osteoarthritis of kneePain in right kneePain in left knee 2 Stack Axel. [address], [place], [place], [id number] , [place]. tel: [phone] [facility], [address] [address], [place], [place], [id number], [place] tel:[phone] [facility] bilateral knees (chief complaint) Pain in right kneePain in left kneeBilateral primary osteoarthritis of knee 1 Stack Axel. [address], [address], [id number] , [place]. tel: [phone] Office/outpat ient visit,est, [facility], [address], [place], [place], [id number], [place] tel:[phone] [facility] Bilat knees (chief complaint) Pain in right kneePain in left kneeBilateral primary osteoarthritis of knee 1 Seda Reyna. [address], [place], [place], [id number] , [place]. tel:[phone] Office/outpat ient visit,new, [facility], [address], [place], [place], [id number], [place] tel:[phone] [facility] left knee (chief complaint) Pain in left kneeUnilateral primary osteoarthritis, left knee 1 Lisa Clarke oswald. [address], [place], [place], [address] , [place]. tel:[phone] Referring Provider: Kwadwo Dumont [address], [place], [address] . tel:[phone] Family History Family Member Type Diagnosis Age At Onset No Information Payers Payer name Insurance type Covered alliance party ID Analia lemons(s) Belinda Patel [facility] [id number] Social History Type Description Quantity Date [...] discharged in stable condition. Dictation completed with eFuneral software, grammatical variances in spelling errors may [...] discharged in stable condition. Dictation completed with [employer]Funeral software, grammatical variances in spelling errors may [...] discharged in stable condition. Dictation completed with QingCloud Practice Edition software, grammatical variances in spelling [...]
--- OUTSIDE RECORDS SUMMARY | 2024-07-07 00:56 | XMS_ITS | Continuity of Care Document ---
Author Organization [facility] Address [address] [place] [address] [place] [address] Phone Care Team Providers Care Roustabout Supervisor Name Role Phone Elpidio Lu Unavailable Unavailable Procedures Procedure Date Eye Exam & Treatment Refraction Office/outpatient Visit, Est Advance Directives Directive Yes / No Effective Date File Name No Information Encounters Encounter Description Practice Location Reason(s) For Visit Diagnoses Date Provider Providers Copied on Encounter [facility], [address] [place] [address] [address], [place], [place], [id number], tel:[phone] [facility] [place] No Information 0 Tabitha Magallanes. [address], [place], [place], [facility], . tel:[phone] Office/outpat ient Visit, Est [facility], [address] [place] [address] [address], [place], [place], [id number], tel:[phone] SEC [facility] No Information 0 Tabitha Magallanes. [address] , [address], [place], [address], [place]. tel:[phone] Family History Family Member Type Diagnosis Age At Onset No Information Payers Payer name Insurance type Covered libertarian ID Authorkena luigiadán(s) [employer] [place] [id number] Social History Type Description Quantity Date Captured [...]
--- OUTSIDE RECORDS SUMMARY | 2024-07-07 00:56 | XMS_ITS | Encounter Summary ---
Author Organization [facility] Address [address] [place] [address] Care Team Providers Care Spa Director/Finance Name Role Phone Indira Ordoñez MD Primary Care Provider [phone] Encounter Details Date Type Department Care Team (Late st Contact Info) Description 06/14/2024 Results Follow-Up [facility] at [address] [address] Violette Mcneil NP [address] 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 Patient should rest, stay hydrated, and take OTC medications as needed. Monitor symptoms and if they worsen follow up with primary care doctoror ER if needed. EN EQUIPMENT MECHANIC documented in this encounter Plan of Treatment Not on file documented as of this encounter Visit Diagnoses Not on filedocumented in this encounter Care Teams Spa Director/Finance Relationship Specialty Start Date End Date Indira Ordoñez MD PCP - General 07/04/19 documented as of this encounter
--- OUTSIDE RECORDS SUMMARY | 2024-07-07 00:56 | XMS_ITS | Data Portability ---
Author Organization [facility] [place] Address [address] [place] [address] Assessment No assessment recorded. Plan of Treatment Reminders Order Date Submit Date Provider Last Modified By Organization Details Last Modified Time Details Appointments None recorded. Lab None recorded. Referral None recorded. Procedures None recorded. Surgeries None recorded. Imaging US, pelvis 2021 022 [email or web address] [place], [address], [place], [address], 23:20:48 US, transvagina l 2021 022 [email or web address] [place], [address], [address], [place], [address], 23:20:48 US, pelvis, complete 2021 022 [email or web address] [place], [address], [place], [address], 10:41:25 Medication Orders None recorded. Patient TargetsNo targets recorded. Patient InstructionsNo instructions recorded. Reason for Referral None Reported. Results Created Date Observation Date Name Description Value Unit Range Abnormal Flag Note LastModifiedBy Organization Detail LastModifiedTime 10/23/19 22 10/22/2021 IMAGE GUIDE D PAP AND HPV REGAR DLESS image guided Pap, HPV regardless of Pap result SEE RESULT S BELOW CASE REPOR T: Cytol ogy Gynec ologi aida Repor t Case: [id number] Autho alpesh sapp Provi anisha: Neftaly Parnell Colle cted: 10/22 1651 STATISTICAL GENETICIST Order ing Locat ion: [place] Patho logcely [...] clini mark maryanne nted. Not Available [facility] Weekend [address] [place], [address], 10/28/2021 09:03:34 10/23/19 22 10/22/2021 TRICH OMONA S VAGIN ROE (RRNA ) trichomonas vaginalis ribosomal RNA (rrna) Negati ve negati ve Not Available [facility] Weekend [address] [address] [place], [address], 10/28/2021 09:03:35 10/23/19 22 10/22/2021 CT/GC (FRANSISCA) , THINP REP VIAL chlamydia trachomatis, PCR Negati ve negati ve Not Available [facility] Stat Weekend [address] [place], [address], 10/28/2021 09:03:35 10/23/19 22 10/22/2021 CT/GC (FRANSISCA) , THINP REP VIAL neisseria gonorrhoeae, PCR Negati ve negati ve Not Available [facility] Weekend [address] [place], [address], 10/28/2021 09:03:35 11/12/19 22 11/11/2021 , calvin s No observ ation record ed. [email or web address] [place] [address], [place], [address], 11/11/2021 12:59:22 11/12/19 22 11/11/2021 US, trans vagin al No observ ation record ed. [email or web address] [place] [address], [place], [address], 11/11/2021 12:59:31 11/12/19 22 11/11/2021 US, pelvi s No observ ation record ed. CHALINO [facility] [address], [place], [address], 11/12/2021 11:15:11 Result Notes None recorded. Procedures Surgical History Date Name Laterality Status Provider Name and Address Organization Details Recorded Time 2 Date of Last Mammogram completed [facility] 10/22/2021 16:22:56 4 section completed [facility] 10/22/2021 16:25:20 Imaging Results Imaging Date Name Status LastModified by Organization Details LastModified Time 11/11/2021 US, pelvis completed [email or web address] [place] [address], [place], [address], 11/11/2021 12:59:22 11/11/2021 US, transvaginal [email or web address] [address], [place], [address], 11/11/2021 12:59:31 11/11/2021 US, pelvis completed [facility] [address], [place], [address], 11/12/2021 11:15:11 Procedure Notes None recorded. Medical [...] Updated DateTime 10/22/2021 152.4 cm 47.4 kg/m2 879732.23 g Carolina Sabillon [facility] 10/22/2021 16:19:22 Date Recorded Systolic blood pressure Diastolic blood pressure Systolic blood pressure Diastolic blood pressure Provider Name and Address Organization Details Last Updated DateTime 10/22/2021 160 mm[Hg] 88 mm[Hg] 142 mm[Hg] 84 mm[Hg] Valeria Keller, [facility]- [address], [place], [address], [facility] 16:40:42 Social History Question Answer Notes LastModified by Organizat ion Details LastModified Time Tobacco Smoking Status Current Every Day Smoker Carolina [facility] 10/22/2021 16:24:57 What Is Your [...] Anxious, Or Unable To Sleep At Night)? [id number] Information not available 10/22/2021 Do You Use [...] SNOMED-CT Code Diagnosis ICD10 Code Diagnosis Note [id number] [facility] [address] [address] 10/22/2021 15:27:17 10/22/2021 17:02:33 Pain in pelvis 24569120 R10.2 This patient is a 54 -year-old [...] is more of a GI issue vs BROADBAND TECHNICIAN issue.Will await updated US result & decide if referral to PCP/GI is required. Gynecologi c examination [id number] Z01.419 Take Calcium with Vitamin D 12-1500mg daily. Do monthly self breast exams. It is advised to get annual flu shot in the fall and she could obtain at [facility] or [facility] take care clinic. If you haven't received [...] UTD PCP Routine Labs UTD PCPMammo ordered [id number] [facility] [address] [address] 11/11/2021 11:59:14 11/11/2021 12:43:02 Pain in pelvis 72981342 R10.2 Health Concerns Section Related Observation LastModified by Organization Detai ls LastModified Time None Recorded Concern Status LastModified by Organization Details LastModified Time None Recorded Advance Directives Directive None Recorded Payers Encounter Date Sequence Insurance Name Policy Number Policy Wiggins Covered Member ID Wiggins Member ID Guarantor Name 10/22/2021 1 [place] [id number] 3 Malgorzata Maher [id number] Malgorzata Mishrar 11/11/2021 1 [facility]: ([place] [id number] 3 Malgorzata Mishrar [id number] Malgorzata Maher Notes Date Note Type Note Provider Name and Address Organization Details Recorded Time 2 text/html Annual Glove Former Post-MenopausalReporte d bypatient.Menopausal Symptoms:no menopausal symptoms; normal [...] area cramping.);diarrhea [place] [facility]- [address], [place], [address], [place] - [facility] 10/22/2021 16:47:39 OBGyn Episode Ob Episode Information Episode Created Date Number of Fetuses Patient Bloodtype Patient rh Status Prepregnancy Weight lbs Domestic Partner Domestic Partner Phone Father Name Brand Marketing Specialist Status 10/23/19 22 1 CLOSED Fetus Data First Name Last Name Admitted to NICU Weight (g) Sex Living Outcome Pediatric Complications Fetus ID Race Codes Race Delivery Type M [id number] Vaginal Delivery Osmar Calculation Initial Osmar Date [...] Domestic Partner Domestic Partner Phone Father Name Brand Marketing Specialist Status 10/23/19 22 1 CLOSED Fetus Data First Name Last Name Admitted to NICU Weight (g) Sex Living Outcome Pediatric Complications Fetus ID Race Codes Race Delivery Type M [id number] Primary Osmar Calculation Initial Osmar Date Initial [...]
[2024-07-07 11:02] VITALS: BP 148/81; PULSE 71; RESP 16; TEMP 36.3; O2SAT 99; BMI 44.1
[2024-07-07] MEDS: LACTATED RINGERS 1,000 ML 150 ML IV CONT (11:22)
--- NOTE | 2024-07-07 11:25 | SUR.PREOP ---
Notified that pt stated they had noodles with broth at 1100 yesterday (07/06). stated he will proceed with procedure
--- NOTE | 2024-07-07 12:13 | P.PNAN_ITS ---
Anes - Initial Pre Proc Eval Procedure: Operation Date: 07/07/24 13:30 Proposed Procedures p Screening Colonoscopy - Romeo Beaver MD Date/Time: 07/07/24 12:13 Surgeon: Romeo Beaver MD Pre Op Diagnosis: Screening Patient Data Age: 59 Gender: F Height: 1.52 m Weight: 102.6 kg Last Vital Signs Temp 36.3 C L 07/07/24 11:02 Pulse 71 07/07/24 11:02 Resp 16 07/07/24 11:02 BP 148/81 H 07/07/24 11:02 Pulse Ox 99 07/07/24 11:02 O2 Del Method Room Air 07/07/24 11:02 Allergies Allergy/AdvReac Type Severity Reaction Status Date / Time No Known Allergies Allergy Verified 07/07/24 11:09 Home Medications ?Medication ?Instructions ?Recorded ?Confirmed ?Type lithium carbonate 450 mg 450 mg PO BID 07/15/20 07/07/24 History tablet,extended release simvastatin 20 mg tablet See Rx Instructions .Route 07/12/23 07/07/24 Rx .COMPLEX #90 tabs metoprolol succinate 25 mg 25 mg PO DAILY #90 tabs 03/05/24 07/07/24 Rx tablet,extended release 24 hr fluticasone propionate 50 1 spray intranasal Q12H 07/07/24 07/07/24 History mcg/actuation nasal spray,suspension Patient hx anesthesia problems: none Family hx anesthesia problems: none Results Review: All pre-operative results and documents have been reviewed as part of the pre- operative evaluation. [facility] Past Medical History Medical History Hypertension Anxiety and depression Sleep apnea HLD (hyperlipidemia) Bipolar 1 disorder Surgical History Surgical History H/O: section Family History Family History Mother CHF (congestive heart failure) Sibling Hx of artificial heart valve replacement Pacemaker Social History Social History Smoking packs per day: 0.5 Smoking cigarettes per day: 10.0 Years smoked: 22 Smoking pack-years: 11.00 Smoking status: Never smoker Second hand tobacco smoke exposure: Yes Alcohol intake: never Substance use: never Substance use type: does not use Lack of Transportation: No Lack of Food: Never True Current Housing: I Have Housing Concerned About Future Housing: No Difficulty Paying Gas/Electric Bills: No Difficulty Paying for Meds: No Currently Unemployed: No Education: Bachelor's Degree Difficulty w/ Childcare or Family Care: No Living arrangements: alone Occupation/Education: occupation Gender identity (if verbalized by the patient): Female Anes - Eval Final PreProcedure Day of Procedure 07/07/24 12:13 Patient weight: morbidly obese Heart: regular rate and rhythm Lungs: decreased breath sounds Airway: Mallampati scale class II Neurological: alert and oriented Last oral intake: >/= 8 hours ASA classification: III Emergent: no Anesthetic plan: proceed Anesthesia type and monitoring: general GIVS and standard monitoring Results Review: All pre-operative results and documents have been reviewed as part of the pre- operative evaluation. Informed Consent: The patient's anesthetic plan and its attendant risks and benefits were discussed with the patient/family/POA. Questions were solicited and answers provided to the satisfaction of the patient/family/POA.
--- NOTE | 2024-07-07 12:13 | PM.IMHP ---
H&P: HPI History of Present Illness Date/Time: 07/07/24 12:13 Chief Complaint: Screening colonoscopy Narrative: This is the patient's 2nd colonoscopy, the last one was 13 years ago. There are no GI symptoms and there is no family history of colorectal cancer. Review of Systems Review of Systems: All systems reviewed & are unremarkable except as noted in HPI and below PMFSH Past Medical History Medical History Hypertension Anxiety and depression Sleep apnea HLD (hyperlipidemia) Bipolar 1 disorder Surgical History Surgical History H/O: section Family History Family History Mother CHF (congestive heart failure) Sibling Hx of artificial heart valve replacement Pacemaker Social History Social History Smoking packs per day: 0.5 Smoking cigarettes per day: 10.0 Years smoked: 22 Smoking pack-years: 11.00 Smoking status: Never smoker Second hand tobacco smoke exposure: Yes Alcohol intake: never Substance use: never Substance use type: does not use Lack of Transportation: No Lack of Food: Never True Current Housing: I Have Housing Concerned About Future Housing: No Difficulty Paying Gas/Electric Bills: No Difficulty Paying for Meds: No Currently Unemployed: No Education: Bachelor's Degree Difficulty w/ Childcare or Family Care: No Living arrangements: alone Occupation/Education: occupation Gender identity (if verbalized by the patient): Female Meds Home Medications and Allergies Home Medications ?Medication ?Instructions ?Recorded ?Confirmed ?Type lithium carbonate 450 mg 450 mg PO BID 07/15/20 07/07/24 History tablet,extended release simvastatin 20 mg tablet See Rx Instructions .Route 07/12/23 07/07/24 Rx .COMPLEX #90 tabs metoprolol succinate 25 mg 25 mg PO DAILY #90 tabs 03/05/24 07/07/24 Rx tablet,extended release 24 hr fluticasone propionate 50 1 spray intranasal Q12H 07/07/24 07/07/24 History mcg/actuation nasal spray,suspension Allergies Allergy/AdvReac Type Severity Reaction Status Date / Time No Known Allergies Allergy Verified 07/07/24 11:09 Vital Signs Vital Signs - 24 hr 07/07/24 11:02 Temperature 97.3 F L Pulse Rate 71 Respiratory Rate 16 Blood Pressure 148/81 H Pulse Oximetry 99 Oxygen Delivery Room Air Exam Const: General: cooperative and healthy appearing Resp: Effort & Inspection: normal respiratory effort and able to speak in complete sentences Auscultation: clear to auscultation bilaterally Cardio: Rate: regular rate Rhythm: regular rhythm GI: Inspection: normal to inspection GI Palp: No No hepatosplenomegaly present Auscultation: normal bowel sounds Rectal Exam: deferred Skin: General skin exam: normal color Psych: Appearance: grossly normal Mental Status: mental status grossly normal Assessment and Plan Assessment and plan (1) Encounter for screening colonoscopy: Code(s): Z12.11 - Encounter for screening for malignant neoplasm of colon Status: Acute Assessment and Plan: The patient is deemed a good candidate for the procedure. Consent signed. Will proceed.
[2024-07-07] MEDS: SIMETHICONE ORAL SUSPENSION 20 MG/0.3 ML 30 ML BOTTLE 0.6 ML IRRIGATION (12:33)
[2024-07-07 12:42] VITALS: BP 88/49; PULSE 65; RESP 25; O2SAT 98
[2024-07-07 12:52] VITALS: BP 87/47; PULSE 54; RESP 25; O2SAT 98
[2024-07-07 13:12] VITALS: BP 105/62; PULSE 53; RESP 17; O2SAT 98
== END 2024-07-07 13:20 | disposition home or self-care (01) ==
PROVIDERS: PCP Family Medicine; Referring Provider Student in an Organized Health Care Education/Training Program; Visit Provider Internal Medicine Gastroenterology
PROC: 0DJD8ZZ Inspection of Lower Intestinal Tract, Via Natural or Artificial Opening Endoscopic (ICD-10-PCS; CPT 45378; principal; 2024-07-07 13:30)
DX: Z12.11 Encounter for screening for malignant neoplasm of colon (principal); D12.0 Benign neoplasm of cecum; E78.5 Hyperlipidemia, unspecified; I10 Essential (primary) hypertension; G47.30 Sleep apnea, unspecified; F41.8 Other specified anxiety disorders; F31.9 Bipolar disorder, unspecified; E66.01 Morbid (severe) obesity due to excess calories; Z68.41 Body mass index [BMI] 40.0-44.9, adult; Z98.890 Other specified postprocedural states; Z87.891 Personal history of nicotine dependence; Z82.49 Family history of ischemic heart disease and other diseases of the circulatory system
CPT/HCPCS: 45380; 88305; J2704; J7120

== ENCOUNTER 2024-07-25 06:59 | Outpatient (CLI) | payer BC, SELFPAY ==
--- NOTE | ~2024-07-25 | US_ITS ---
RIGHT UPPER QUADRANT ABDOMINAL ULTRASOUND (Doppler ultrasound interrogation techniques used as needed for this exam.) Ordering provider: Je Alberts MD History: . R10.11 - Right upper quadrant pain . Comparison: None. FINDINGS: PANCREAS: Normal size. Slightly echogenic. PORTAL VEIN: Hepatopedal flow demonstrated. LIVER: Normal size and increased echogenicity. No focal hepatic lesions or perihepatic fluid collecti ons are identified. BILIARY DUCTS: No intra or extrahepatic biliary dilation. Common bile duct measures 4 mm in diameter which is normal for patient's age. GALLBLADDER: Normal. No stones, sludge, gallbladder wall thickening or pericholecystic fluid. Wall th icknesses 0.2 cm. Positive sonographic Sparks's sign. FREE FLUID: None visualized within the upper abdomen. IMPRESSION: Positive Sparks's sign of the gallbladder. Evaluation for cholecystitis advised. Fat infiltration of the liver. Echogenic pancreas suggestive of fat infiltration. Otherwise, normal right upper quadrant ultrasound. Reviewed, dictated and finalized at location A. IMPRESSION: Positive Sparks's sign of the gallbladder. Evaluation for cholecystitis advised . Fat infiltration of the liver. Echogenic pancreas suggestive of fat infiltrat ion. Otherwise, normal right upper quadrant ultrasound.
--- OUTSIDE RECORDS SUMMARY | 2024-07-25 07:03 | XMS_ITS | Clinical Summary ---
Author Organization [facility] [address] [place] [address] Care Team Providers Care Director Of Special Services Name Role Phone Indira Ordoñez MD Primary Care Provider [phone] Allergies No known active allergies Medications simvastatin [...] mg total) by mouth daily 2 Active clonazePAM (KlonoPIN) 0.5 mg tablet TAKE [...] taking.Reported on 06/13/2024 al & mag hydroxide simethicone-diph enhydramine-lido terrell-nystatin (MAGIC MOUTHWASH) suspension 3-0-8-1Indicatio ns:Thrush Swish and swallow 10 mL every 4 (four) hours as needed (throat) 100 mL 3 Active Additional Information Patient not taking.Reported on 06/13/2024 venlafaxine XR (EFFEXOR-XR) 150 mg 24 hr capsule Take 1 capsule (150 mg total) by mouth daily 5 Active predniSONE (DELTASONE) 10 mg tablet PLEASE SEE ATTACHED FOR DETAILED DIRECTIONS 5 Active cefadroxil (DURICEF) 500 mg capsule TAKE 1 CAPSULE BY MOUTH TWICE A DAY X10 DAYS 5 Active fluticasone propionate (FLONASE) 50 mcg/actuation nasal spray Administer 2 sprays into each nostril daily 1 each 5 Active Active Problems Problem Noted Date Diagnosed Date [...] Department Care Team Description 06/14/2024 Results Follow-Up [facility] [address] [address] Violette Mcneil NP 06/13/2024 2:58 PM [facility] - 06/13/2024 11:59 PM [facility] [place] [address] Flu-like symptoms Discharge Disposition: Discharge to home or self care 06/13/2024 12:45 PM [facility] Office Visit [facility] [address] [address] Sigifredo Brady NP Flu-like symptoms (Primary Dx) [...] on file Legal Sex Female 9:05 PM [facility] Gender Identity Female 11/09/2019 8:55 AM CDT Sexual Orientation Straight 11/09/2019 8: 55 AM CDT 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 Not on file [...] Comments Blood Pressure 142/80 06/13/2024 1:01 PM [facility] Pulse 89 06/13/2024 1:01 PM [facility] Temperature 37.6 C (99.7 F) 06/13/2024 12:38 PM [facility] Respiratory Rate 24 06/13/2024 12:38 PM [facility] Oxygen Saturation 98% 06/13/2024 1:01 PM [facility] Inhaled Oxygen Concentration - - Weight 102.1 kg (225 lb) 06/13/2024 12:38 PM [facility] Height 152.4 cm (5') 06/13/2024 12:38 PM [facility] Body Mass Index 43.94 06/13/2024 12:38 PM [facility] Plan of Treatment Health Maintenance Due Date Last Done Comments Breast Cancer Screening-Mammogram 1965 Cervical Cancer Screening 1963 Colon Cancer Screening-Colonoscopy 1963 Depression Screening 1963 Hepatitis C Screening 1963 Hepatitis B Screening 1981 Pneumococcal vaccine <65 (1 of 2 - PCV) 1982 Zoster Vaccine (1 of 2) 2013 Regular Well Visit/Exam 18-64 06/09/2020 06/09/2019 Influenza Vaccine (Season Ended) 2024 05/01/2019, 02/18/2015, 03/11/2013, Additional history exists DTaP/Tdap/Td Vaccine (3 - Td or Tdap) 09/05/2025 09/06/2015, 01/01/2011 Procedures Procedure Name Priority Date/Time Associated Diagnosis Comments INFLUENZA A/B, RSV, AND COVID-19 PCR Routine 06/13/2024 2:58 PM [facility] Flu-like symptoms from Last 3 Months Results * Influenza A/B, RSV, and COVID-19 PCR Nasopharyngeal (06/13/2024 2:58 PM [facility]) COVID-19 RNA Negative Negative Influenza A RNA Negative Negative [facility] Influenza B RNA Negative Negative [facility] RSV RNA Negative Negative [facility] Comment: Interpretive data: Testing performed by [facility]. This test is performed using the [employer]! Xpert Xpress CoV-2/Flu/RSV plus assay. This is a multiplex, real-time reverse transcriptase PCR assay intended for the qualitative detection of nucleic acid from SARS-CoV-2, influenza A, influenza B, and respiratory syncytial virus. This assay has been cleared by the [place] Food and Drug administration. The performance characteristics have been verified by the [facility]. Results must be considered in the clinical context, and a negative result does not rule out infection. Interpretive Data last revised 2023 Nasopharyngeal 06/13/2024 2: 58 PM [facility] 06/13/2024 9:09 PM [facility] Narrative [facility] - 06/13/2024 10:41 PM [facility] Is the Patient experiencing symptoms consistent with COVID?->Yes us Sigifredo Brady NP LAB MICROBIOLOGY - GENERAL JUAN LUIS OSORIO Final Result [facility] [address] [place] [address] CH from Last 3 Months Insurance [employer] ACCESS CHOICE [employer] ACCESS CHOICE Care Teams Director Of Special Services Relationship Specialty Start Date End Date Indira Ordoñez MD PCP - General 07/04/19
--- OUTSIDE RECORDS SUMMARY | 2024-07-25 07:03 | XMS_ITS | Data Portability ---
Author Organization [facility] [place] Address [address] [place] [address] Assessment No assessment recorded. Plan of Treatment Reminders Order Date Submit Date Provider Last Modified By Organization Details Last Modified Time Details Appointments None recorded. Lab None recorded. Referral None recorded. Procedures None recorded. Surgeries None recorded. Imaging US, pelvis 2021 022 [email or web address] [address], [address], [place], [address], 23:20:48 US, transvagina l 2021 022 [email or web address] [place], [address], [address], [place], [address], 23:20:48 US, pelvis, complete 2021 022 [email or web address] [address], [address], [place], [address], 10:41:25 Medication Orders None recorded. Patient TargetsNo [...] anisha: Neftaly Parnell Colle cted: 10/22 1651 ARCHIVIST Order ing Locat ion: [place] Patho logcely [...] clini mark maryanne nted. Not Available [facility] [address] [address] [place], [address], 10/28/2021 09:03:34 10/23/19 22 10/22/2021 TRICH OMONA S VAGIN ROE (RRNA ) trichomonas vaginalis ribosomal RNA (rrna) Negati ve negati ve Not Available [facility] [address] [address] [place], [address], 10/28/2021 09:03:35 10/23/19 22 10/22/2021 CT/GC (FRANSISCA) , THINP REP VIAL chlamydia trachomatis, PCR Negati ve negati ve Not Available [facility] - Stat Weekend [address] [place], [address], 10/28/2021 09:03:35 10/23/19 22 10/22/2021 CT/GC (FRANSISCA) , THINP REP VIAL neisseria gonorrhoeae, PCR Negati ve negati ve Not Available [facility] - [facility] Weekend [address] [place], [address], 10/28/2021 09:03:35 11/12/19 22 11/11/2021 , calvin s No observ ation record ed. [email or web address] [place] [address], [place], [address], 11/11/2021 12:59:22 11/12/19 22 11/11/2021 US, trans vagin al No observ ation record ed. [email or web address] [place] [address], [place], [address], 11/11/2021 12:59:31 11/12/19 22 11/11/2021 US, pelvi s No observ ation record ed. CHALINO Mar[facility] [address], [place], [address], 11/12/2021 11:15:11 Result Notes None recorded. Procedures Surgical History Date Name Laterality Status Provider Name and Address Organization Details Recorded Time 2 Date of Last [facility]amm[facility] 10/22/2021 16:22:56 4 section completed [facility] 10/22/2021 16:25:20 Imaging Results Imaging Date Name Status LastModified by Organization Details LastModified Time 11/11/2021 US, pelvis completed [email or web address] [place] [address], [place], [address], 11/11/2021 12:59:22 11/11/2021 US, transvaginal [email or web address] [address], [place], [address], 11/11/2021 12:59:31 11/11/2021 US, pelvis completed CHALINO [facility] [address], [place], [address], 11/12/2021 11:15:11 Procedure Notes None recorded. Medical [...] Updated DateTime 10/22/2021 152.4 cm 47.4 kg/m2 596005.23 g Carolina Sabillon [facility] 10/22/2021 16:19:22 Date Recorded Systolic blood pressure Diastolic blood pressure Systolic blood pressure Diastolic blood pressure Provider Name and Address Organization Details Last Updated DateTime 10/22/2021 160 mm[Hg] 88 mm[Hg] 142 mm[Hg] 84 mm[Hg] Valeria Keller, [facility]- [address], [place], [address], [facility] 16:40:42 Social History Question Answer Notes LastModified by Organizat ion Details LastModified Time Tobacco Smoking Status Current Every Day Smoker Carolina Sabillon [facility] 10/22/2021 16:24:57 What Is Your [...] Anxious, Or Unable To Sleep At Night)? [id number] Information not available 10/22/2021 Do You Use [...] SNOMED-CT Code Diagnosis ICD10 Code Diagnosis Note [id number] [facility] [address] [address] 10/22/2021 15:27:17 10/22/2021 17:02:33 Pain in pelvis 14413315 R10.2 This patient is a 54 -year-old [...] is more of a GI issue vs RECENTERER issue.Will await updated US result & decide if referral to PCP/GI is required. Gynecologi c examination [id number] Z01.419 Take Calcium with Vitamin D 12-1500mg daily. Do monthly self breast exams. It is advised to get annual flu shot in the fall and she could obtain at [facility] or [facility] take care clinic. If you [...] UTD PCP Routine Labs UTD PCPMammo ordered [id number] [facility] [address] [address] 11/11/2021 11:59:14 11/11/2021 12:43:02 Pain in pelvis 27141617 R10.2 Health Concerns Section Related Observation LastModified by Organization Detai ls LastModified Time None Recorded Concern Status LastModified by Organization Details LastModified Time None Recorded Advance Directives Directive None Recorded Payers Encounter Date Sequence Insurance Name Policy Number Policy Wiggins Covered Member ID Wiggins Member ID Guarantor Name 10/22/2021 1 [place] [id number] 3 Malgorzata Maher [id number] Malgorzata Mishrar 11/11/2021 1 [facility] ([place] [id number] 3 Malgorzata Mishrar [id number] Malgorzata Maher Notes Date Note Type Note Provider Name and Address Organization Details Recorded Time 2 text/html Annual State Federal Relations Deputy Director Post-MenopausalReporte d bypatient.Menopausal Symptoms:no menopausal symptoms; normal [...] area cramping.);diarrhea [place] As[facility]- [address], [place], [address], [place] - [facility] 10/22/2021 16:47:39 OBGyn Episode Ob Episode Information Episode Created Date Number of Fetuses Patient Bloodtype Patient rh Status Prepregnancy Weight lbs Domestic Partner Domestic Partner Phone Father Name Sr. Payroll Manager Status 10/23/19 22 1 CLOSED Fetus Data First Name Last Name Admitted to NICU Weight (g) Sex Living Outcome Pediatric Complications Fetus ID Race Codes Race Delivery Type M [id number] Vaginal Delivery Osmar Calculation Initial Osmar Date [...] Domestic Partner Domestic Partner Phone Father Name Sr. Payroll Manager Status 10/23/19 22 1 CLOSED Fetus Data First Name Last Name Admitted to NICU Weight (g) Sex Living Outcome Pediatric Complications Fetus ID Race Codes Race Delivery Type M [id number] Primary Osmar Calculation Initial Osmar Date Initial [...]
--- OUTSIDE RECORDS SUMMARY | 2024-07-25 07:03 | XMS_ITS | Clinical Summary ---
Author Organization [facility] Address [address] [place] [address] Care Team Providers Care Bridge Game Director Name Role Phone Unavailable Primary Care Provider [...] Vaccines (1 of 2) 2013 COVID-19 Vaccine ( - 2023-2 5 season) 2023 RSV Immunization or 60+ Years (1 - [...]
--- OUTSIDE RECORDS SUMMARY | 2024-07-25 07:03 | XMS_ITS | Referral Summary ---
Author Organization [facility] Address [address] [place] [address] Care Team Providers Care Body Liner Name Role Phone Indira Ordoñez MD Primary Care Provider [phone] Encounters Date Type Department Care Team Description 06/14/2024 Results Follow-Up [facility] at [address] [address] Violette Mcneil NP 06/13/2024 2:58 PM SAND CASTER - 06/13/2024 11:59 PM S[facility]STER Hospital Encounter [address] [address] Flu-like symptoms Discharge Disposition: Discharge to home or self care 06/13/2024 12:45 PM SAND CASTER Office Visit [facility] at [address] [address] Sigifredo Brady NP Flu-like symptoms (Primary Dx) [...] hydroxide simethicone-diph enhydramine-lido terrell-nystatin (MAGIC MOUTHWASH) suspension 7-2-0-1Indicatio ns:Thrush Swish and swallow 10 mL every [...] on file Legal Sex Female 9:05 PM SAND CASTER Gender Identity Female 11/09/2019 8:55 AM CDT Sexual Orientation Straight 11/09/2019 8: 55 AM CDT 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 Not on file Not on file Last Filed Vital Signs Vital Sign Reading Time Taken Comments Blood Pressure 142/80 06/13/2024 1:01 PM SAND CASTER Pulse 89 06/13/2024 1:01 PM SAND CASTER Temperature 37.6 C (99.7 F) 06/13/2024 12:38 PM SAND CASTER Respiratory Rate 24 06/13/2024 12:38 PM SAND CASTER Oxygen Saturation 98% 06/13/2024 1:01 PM SAND CASTER Inhaled Oxygen Concentration - - Weight 102.1 kg (225 lb) 06/13/2024 12:38 PM SAND CASTER Height 152.4 cm (5') 06/13/2024 12:38 PM SAND CASTER Body Mass Index 43.94 06/13/2024 12:38 PM SAND CASTER Plan of Treatment Not on file Procedures Procedure Name Priority Date/Time Associated Diagnosis Comments INFLUENZA A/B, RSV, AND COVID-19 PCR Routine 06/13/2024 2:58 PM SAND CASTER Flu-like symptoms from Last 3 Months Results * Influenza A/B, RSV, and COVID-19 PCR Nasopharyngeal (06/13/2024 2:58 PM SAND CASTER) COVID-19 RNA Negative Negative Influenza A RNA Negative Negative [facility] Influenza B RNA Negative Negative [facility] RSV RNA Negative Negative [facility] Comment: Interpretive data: Testing performed by [facility]. This test is performed using the [employer] Xpert Xpress CoV-2/Flu/RSV plus assay. This is a multiplex, real-time reverse transcriptase PCR assay intended for the qualitative detection of nucleic acid from SARS-CoV-2, influenza A, influenza B, and respiratory syncytial virus. This assay has been cleared by the [place] Food and Drug administration. The performance characteristics have been verified by the [facility]. Results must be considered in the clinical context, and a negative result does not rule out infection. Interpretive Data last revised 2023 Nasopharyngeal 06/13/2024 2: 58 PM SAND CASTER 06/13/2024 9:09 PM SAND CASTER Narrative BIMAL ARRIAGA - 06/13/2024 10:41 PM SAND CASTER Is the Patient experiencing symptoms consistent with COVID?->Yes us Sigifredo Brady NP LAB MICROBIOLOGY - GENERAL JUAN LUIS SOORIO Final Result [facility]IMAL ARRIAGA [address] [place] [address] from Last 3 Months Insurance [employer] [facility] [id number] [employer] Care Teams Body Liner Relationship Specialty Start Date End Date Indira Ordoñez MD PCP - General 07/04/19
--- OUTSIDE RECORDS SUMMARY | 2024-07-25 07:03 | XMS_ITS | Continuity of Care Document ---
Author Organization [facility] Address [address] [place] [address] [place] [address] Phone Care Team Providers Care Banking Teacher Name Role Phone Elpidio Lu Unavailable Unavailable Procedures Procedure Date Eye Exam & Treatment Refraction Office/outpatient Visit, Est Advance Directives Directive Yes / No Effective Date File Name No Information Encounters Encounter Description Practice Location Reason(s) For Visit Diagnoses Date Provider Providers Copied on Encounter [facility], [address] [place] [address] [address], [place], [place], [id number], tel:[phone] [facility] No Information 0 Tabitha Magallanes. [address] , [address], [place], [place], [facility], . tel:[phone] Office/outpat ient Visit, Est [facility], [address] [place] [address] [address], [place], [place], [id number], tel:[phone] SEC [facility] [place] No Information 0 Tabitha Magallanes. [address] , [address], [place], [address], [place]. tel:[phone] Family History Family Member Type Diagnosis Age At Onset No Information Payers Payer name Insurance type Covered constitution party ID Authorkena luigiadán(s) [employer] Vision Plan CI [id number] Social History Type Description Quantity Date Captured [...]
--- OUTSIDE RECORDS SUMMARY | 2024-07-25 07:03 | XMS_ITS | Encounter Summary ---
Author Organization [facility] Address [address] [place] [address] Care Team Providers Care Manager It Security Name Role Phone Indira Ordoñez MD Primary Care Provider [phone] Encounter Details Date Type Department Care Team (Late st Contact Info) Description 06/14/2024 Results Follow-Up [facility] Con[facility]ient Care at [address] [address] Violette Mcneil NP 2 [facility] [address] [place] [address] Social History Tobacco Use Types Packs/Day Years Used Date Smoking Tobacco: Every Day Smokeless Tobacco: Never Comments:Smoking History Pac ks/day: 1 Packs Alcohol Use Standard Drinks/Week Comments No 0 (1 standard drink = 0.6 oz pur e alcohol) Comments No Sex and Gender Information Value Date Recorded Sex Assigned at Not on file Legal Sex Female 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 Patient should rest, stay hydrated, and take OTC medications as needed. Monitor symptoms and if they worsen follow up with primary care doctoror ER if needed. ICAL TECHNICIAN documented in this encounter Plan of Treatment Not on file documented as of this encounter Visit Diagnoses Not on filedocumented in this encounter Care Teams Manager It Security Relationship Specialty Start Date End Date Indira Ordoñez MD PCP - General 07/04/19 documented as of this encounter
--- OUTSIDE RECORDS SUMMARY | 2024-07-25 07:03 | XMS_ITS | Continuity of Care Document ---
Author Organization [facility] Address [address] [place] [address] Phone Care Team Providers Care Air Intelligence Officer Name Role Phone Stack Axel VENTURA Unavailable [...] X-ray exam knee, 4+ views Office/outpatient visit,[place], [facility] [place] Advance Directives Directive Yes / No Effective Date File Name No Information Encounters Encounter Description Practice Location Reason(s) For Visit Diagnoses Date Provider Providers Copied on Encounter Office/outpat ient visit,est, mod [facility], [address] [address], [place], [place], [id number], [place] tel:[phone] [facility] bilat knees (chief complaint) Pain in left kneePain in right kneeBilateral primary osteoarthritis of knee 2 Stack Axel. [address], [place] [address], [place], [place], [id number] , [place]. tel: [phone] [facility], [address], [id number], [place] tel:[phone] [facility] Bilateral knees (chief complaint) Pain in left kneePain in right kneeBilateral primary osteoarthritis of knee 2 Stack Axel. [address] [facility] [address], [place], [place], [id number] , [place]. tel: [phone] [facility], [address], [place], [place], [id number], [place] tel:[phone] [facility] Bilateral knees (chief complaint) Bilateral primary osteoarthritis of kneePain in right kneePain in left knee 2 Stack Axel. [address], [place], [place], [id number] , [place]. tel: [phone] [facility] [employer], [address] [address], [place], [place], [id number], [place] tel:[phone] [facility] bilateral knees (chief complaint) Pain in right kneePain in left kneeBilateral primary osteoarthritis of knee 1 Stack Axel. [address], [address], [id number] , [place]. tel: [phone] Office/outpat ient visit,[place], [facility], [address], [place], [place], [id number], [place] tel:[phone] [facility] [employer] Bilat knees (chief complaint) Pain in right kneePain in left kneeBilateral primary osteoarthritis of knee 1 Seda Reyna. [address], [address], [place], [place], [address] , [place]. tel:[phone] Office/outpat ient visit,[place] [facility], [address], [place], [place], [address], [place] tel:[phone] [facility] [employer] left knee (chief complaint) Pain in left kneeUnilateral primary osteoarthritis, left knee 1 Lisa Clarke oswald. [address], [address], [place], [place], [address] , [place]. tel:[phone] Referring Provider: Kwadwo Dumont [address], [place], [address] . tel:[phone] Family History Family Member Type Diagnosis Age At Onset No Information Payers Payer name Insurance type Covered republican ID Analia lemons(s) Belinda Patel [facility] [id number] Social History Type Description Quantity Date [...] discharged in stable condition. Dictation completed with Tapat[employer] software, grammatical variances in spelling errors may [...] discharged in stable condition. Dictation completed with Tap[employer] software, grammatical variances in spelling errors may [...] discharged in stable condition. Dictation completed with [employer] Practice Edition software, grammatical variances in spelling [...]
== END 2024-07-25 07:00 | disposition home or self-care (01) ==
PROVIDERS: PCP Family Medicine; Visit Provider Surgery
DX: K81.0 Acute cholecystitis (principal); K76.0 Fatty (change of) liver, not elsewhere classified; K86.89 Other specified diseases of pancreas
CPT/HCPCS: 76705

== ENCOUNTER 2024-09-27 09:57 | Outpatient (CLI) | payer BC, SELFPAY ==
--- OUTSIDE RECORDS SUMMARY | 2024-09-27 10:54 | XMS_ITS | Clinical Summary ---
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 Not on file [...] Comments Blood Pressure 142/80 06/13/2024 1:01 PM ROUGH AND TRUEING MACHINE OPERATOR Pulse 89 06/13/2024 1:01 PM ROUGH AND TRUEING MACHINE OPERATOR Temperature 37.6 C (99.7 F) 06/13/2024 12:38 PM ROUGH AND TRUEING MACHINE OPERATOR Respiratory Rate 24 06/13/2024 12:38 PM ROUGH AND TRUEING MACHINE OPERATOR Oxygen Saturation 98% 06/13/2024 1:01 PM ROUGH AND TRUEING MACHINE OPERATOR Inhaled Oxygen Concentration - - Weight 102.1 kg (225 lb) 06/13/2024 12:38 PM ROUGH AND TRUEING MACHINE OPERATOR Height 152.4 cm (5') 06/13/2024 12:38 PM ROUGH AND TRUEING MACHINE OPERATOR Body Mass Index 43.94 06/13/2024 12:38 PM ROUGH AND TRUEING MACHINE OPERATOR Plan of Treatment Health Maintenance Due Date [...] Td or Tdap) 09/05/2025 09/06/2015, 01/01/2011 Insurance ANTHEM ACCESS CHOICE ANTHEM ACCESS CHOICE Care Teams Food And Beverage Checker Relationship Specialty Start Date End Date Indira Ordoñez MD PCP - General 07/04/19
--- OUTSIDE RECORDS SUMMARY | 2024-09-27 10:54 | XMS_ITS | Referral Summary ---
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 Not on file Not on file Last Filed Vital Signs Vital Sign Reading Time Taken Comments Blood Pressure 142/80 06/13/2024 1:01 PM BOX LIDDER Pulse 89 06/13/2024 1:01 PM BOX LIDDER Temperature 37.6 C (99.7 F) 06/13/2024 12:38 PM BOX LIDDER Respiratory Rate 24 06/13/2024 12:38 PM BOX LIDDER Oxygen Saturation 98% 06/13/2024 1:01 PM BOX LIDDER Inhaled Oxygen Concentration - - Weight 102.1 kg (225 lb) 06/13/2024 12:38 PM BOX LIDDER Height 152.4 cm (5') 06/13/2024 12:38 PM BOX LIDDER Body Mass Index 43.94 06/13/2024 12:38 PM BOX LIDDER Plan of Treatment Not on file Insurance [employer] ACCESS CHOICE [employer]abb[employer] ACCESS CHOICE Care Teams Spud Driller Relationship Specialty Start Date End Date Indira Ordoñez MD PCP - General 07/04/19
--- OUTSIDE RECORDS SUMMARY | 2024-09-27 10:54 | XMS_ITS | Data Portability ---
Author Organization [facility] [place] Address [address] [place] [address] [place] [address] Assessment No assessment recorded. Plan of Treatment Reminders Order Date Submit Date Provider Last Modified By Organization Details Last Modified Time Details Appointments None recorded. Lab None recorded. Referral None recorded. Procedures None recorded. Surgeries None recorded. Imaging US, pelvis 2021 022 [email or web address] [place], [address], [place], [address], 23:20:48 US, transvagina l 2021 022 [email or web address] [place], [address], [address], [place], [address], 23:20:48 US, pelvis, complete 2021 022 [email or web address] [place], [address], [place], [address], 10:41:25 Medication Orders None recorded. Patient TargetsNo [...] anisha: Neftaly Parnell Colle cted: 10/22 [address] Order ing Locat ion: [place] Patho logcely [...] [facility] [address] [place], [address], 10/28/2021 09:03:34 10/23/19 22 10/22/2021 TRICH OMONA S VAGIN ROE (RRNA ) trichomonas vaginalis ribosomal RNA (rrna) Negati ve negati ve Not Available [facility] [address] [place], [address], 10/28/2021 09:03:35 10/23/19 22 10/22/2021 CT/GC (FRANSISCA) , THINP REP VIAL chlamydia trachomatis, PCR Negati ve negati ve Not Available [facility] [address] [place], [address], 10/28/2021 09:03:35 10/23/19 22 10/22/2021 CT/GC (FRANSISCA) , THINP REP VIAL neisseria gonorrhoeae, PCR Negati ve negati ve Not Available [facility] - [address] [place], [address], 10/28/2021 09:03:35 11/12/19 22 11/11/2021 , calvin s No observ ation record ed. [email or web address] [place] [address], [place], [address], 11/11/2021 12:59:22 11/12/19 22 11/11/2021 US, trans vagin al No observ ation record ed. [email or web address] [place] [address], [place], [address], 11/11/2021 12:59:31 11/12/19 22 11/11/2021 US, pelvi s No observ ation record ed. CHALINO Mariana [address], [place], [address], 11/12/2021 11:15:11 Result Notes None recorded. Procedures Surgical History Date Name Laterality Status Provider Name and Address Organization Details Recorded Time 2 Date of Last Mammogram completed [facility] 10/22/2021 16:22:56 4 section completed [facility] 10/22/2021 16:25:20 Imaging Results None recorded. Procedure Notes None recorded. Medical Equipment None [...] Available Not Avai lable Vitals Date Recorded Systolic blood pressure Diastolic blood pressure Systolic blood pressure Diastolic blood pressure Provider Name and Address Organization Details Last Updated DateTime 10/22/2021 160 mm[Hg] 88 mm[Hg] 142 mm[Hg] 84 mm[Hg] Valeria Keller [facility]- [address], [place], [address], [place] - [facility] 2 16:40:42 Date Recorded Body height Body mass index (BMI) Body weight Provider Name and Address Organization Details Last Updated DateTime 10/22/2021 152.4 cm 47.4 kg/m2 581581.23 g aCrolina Sabillon [facility] 10/22/2021 16:19:22 Social History Question Answer Notes LastModified by [employer] Details LastModified Time Tobacco Smoking Status Current Every Day Smoker Carolina Sabillon [facility], [facility] 10/22/2021 16:24:57 Are You Blind Or Do You Have [...] Yes Information not available 10/22/2021 Do You Use Sunscreen Routinely? Yes Information not available 10/22/2021 Do You Have Difficulty Walking Or Climbing Stairs? No Information not available 10/22/2021 Sex: Unknown Functional Status Question Answer Note LastModified by [employer] Details LastModified Time Do you use any illicit or recreational drugs? No Information not available 10/22/2021 What is your level of alcohol consumption? Occasional Information not available 10/22/2021 Are you able to walk? YESWOREST Information not available 10/22/2021 Are you able to care for yourself? Yes Information n ot available 10/22/2021 Do you have difficulty dressing or bathing? No Information not available 10/22/2021 What is your exercise level? Moderate Information not available 10/22/2021 Mental Status Question Answer Note LastModified by Organization D etails LastModified Time Do you feel stressed (tense, restless, nervous, or anxious, or unable to sleep at night)? 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 Gynecologi c examination 78498826 Z01.419 Take Calcium with Vitamin D 12-1500mg daily. Do monthly self breast exams. It is advised to get annual flu shot in the fall and she could obtain at [facility] or [facility]. If you haven't received the Tdap vaccine [...] UTD PCP Routine Labs UTD PCPMammo ordered [id number] Diego Jung MD [place] [address] [address] 11/11/2021 11:59:14 11/11/2021 12:43:02 Pain in pelvis 07671520 R10.2 Health Concerns Section Related Observation LastModified by Organization Detai ls LastModified Time None Recorded Concern Status LastModified by Organization Details LastModified Time None Recorded Advance Directives Directive None Recorded Payers Encounter Date Sequence Insurance Name Policy Number Policy Wiggins Covered Member ID Wiggins Member ID Guarantor Name 10/22/2021 1 [place] [id number] 3 Malgorzata Becherer [id number] Malgorzata Becherer 11/11/2021 1 [place] [id number] 3 Malgorzata Becherer [id number] Malgorzata Becherer Notes Date Note Type Note Provider Name and Address Organization Details Recorded Time 2 text/html Annual 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 Quality:intermittent (Cramping type feeling random. Unable [...] no urge incontinence;abdominal pain(Lower abd/pelvic area cramping.);diarrhea Soumya Keller, [facility]- [address], [place], [address], [facility] 10/22/2021 16:47:39 OBGyn Episode Ob Episode Information Episode Created Date Number of Fetuses Patient Bloodtype Patient rh Status Prepregnancy Weight lbs Domestic Partner Domestic Partner Phone Father Name Supervisor Gear Repair Status 10/23/19 22 1 CLOSED Fetus Data First Name Last Name Admitted to NICU Weight (g) Sex Living Outcome Pediatric Complications Fetus ID Race Codes Race Delivery Type M [id number] Vaginal Delivery Osmar Calculation Initial Osmar Date [...] Domestic Partner Domestic Partner Phone Father Name Supervisor Gear Repair Status 10/23/19 22 1 CLOSED Fetus Data First Name Last Name Admitted to NICU Weight (g) Sex Living Outcome Pediatric Complications Fetus ID Race Codes Race Delivery Type M [id number] Primary Osmar Calculation Initial Osmar Date Initial [...]
--- NOTE | 2024-09-27 11:16 | ECG_ITS ---
Test Date: 2024-09-27 11:26:52 Measurements Intervals Collyer Rate: 54 P: 40 CA: 163 QRS: 45 QRSD: 112 T: 72 QT: 439 QTc: 419 Interpretive Statements SINUS BRADYCARDIA INCOMPLETE RIGHT BUNDLE BRANCH BLOCK BASELINE ARTIFACT- I, II, III, AVR, AVL, AVF BORDERLINE ECG No previous ECG available for comparison Electronically Signed On 09-27-2024 11:47:37 CDT by Sacha Marsh D.O.
[2024-09-27 13:00] LABS: Hemoglobin 14.1 g/dL (12.0-15.0)
[2024-09-27 14:00] LABS: Lithium 1.1 mmol/L (0.6-1.2)
== END 2024-09-27 09:58 | disposition home or self-care (01) ==
LOC: ANHSURGERY 10:02
PROVIDERS: Anesthesiology; PCP Family Medicine; Visit Provider Surgery
DX: Z01.818 Encounter for other preprocedural examination (principal); K63.5 Polyp of colon; Z51.81 Encounter for therapeutic drug level monitoring; I10 Essential (primary) hypertension
CPT/HCPCS: 36415; 80178; 85014; 85018; 86850; 86900; 86901; 93005

== ENCOUNTER 2024-10-03 15:34 | Inpatient (IN) | payer BC, SELFPAY ==
[2024-09-27 10:18] VITALS: BP 141/74; PULSE 62; RESP 16; TEMP 37.3; O2SAT 98; BMI 44.1
--- NOTE | 2024-09-27 10:32 | PC.NURSE ---
Report to the Outpatient Waiting Room, entrance under the green pavilion located off [facility], at time ___6:00AM____ on date ___10/03/24____. Planned Procedure Time: ____7:30AM____.? Time changes happen often and if your time is changed the preop area will call you the afternoon before. - You and your visitor will be asked to self-screen and do not enter if you have any COVID symptoms. Please call surgeon if you need to reschedule. - A mask is optional within the hospital at this time. BOWEL PREP PER DR JIANG on day before surgery. Patients may have clear liquids (water, carbonated beverages, clear teas, apple juice) until 3 hours prior to surgery (4:30am) with a maximum of 20 ounces. - No food from midnight until time of surgery and no smoking, or chewing tobacco (or any form of nicotine). No chewing gum, candy or mints. Take only the following medications with a SIP of water on the morning of surgery: ___LITHIUM, VENLAFAXINE. MAY TAKE CLONAZEPAM NEEDED. DO NOT STOP ANY OF YOUR OTHER PRESCRIPTION MEDICATIONS PRIOR TO SURGERY EXCEPT THE FOLLOWING Hold all vitamins and supplements for 3 days per anesthesiologist. LAST DOSE 09/29/24. Medications to discontinue per physician HOLD IBUPROFEN PER DR JIANG Please no make-up, nail danish, hairspray, perfume, deodorant, or body powder the day of surgery.? No jewelry (including any body piercings) or valuables the day of surgery, leave them at home.? Please take a shower or bath the night before, or the morning of, surgery with an antibacterial soap.? Wear comfortable, loose fitting clothing.? - Jewelry must be removed prior to entering the operating room.? Rings and piercings that are not removed may be cut off. - The hospital will not accept responsibility for valuables.? - Please leave all valuables, including medications, at home the day of surgery. If you are going home after surgery, a licensed lease purchase driver must drive you home.? - NO public transportation without another adult if you receive anesthesia. - We recommend that an adult stay with you for 24 hours following discharge. - We also recommend that you do not drive, make important decision, drink alcoholic beverages, or take any drugs that were not prescribed by your health care provider for at least 24 hours after your discharge time. Follow any additional instructions given to you from your surgeon. PER DR JIANG: ANTIBIOTICS DAY BEFORE SURGERY BOWEL PREP DAY BEFORE SURGERY HIBICLENS SHOWER DAY BEFORE & MORNING OF SURGERY ENSURE BUNDLE Telephone instructions given to ____PATIENT and asked if any additional questions and then verbalized understanding. Patient advised to call surgeon office or pre surgery nurse liaison [phone] if any additional questions.
[2024-10-03] VITALS (16 sets, daily range): BP systolic 113–159; BP diastolic 56–92; PULSE 63–104; RESP 14–24; TEMP 35.7–36.8; O2SAT 92–99
--- OUTSIDE RECORDS SUMMARY | 2024-10-03 00:40 | XMS_ITS | Clinical Summary ---
Author Organization [facility] 40 Address [address] [place] [address] Care Team Providers Care Operating Room Aide Name Role Phone Indira Ordoñez MD Primary Care Provider [phone] Allergies No known active allergies Medications simvastatin (ZOCOR) 20 mg tablet Take 1 tablet (20 mg total) by mouth daily 0 05/15/19 19 Active LITHIUM 300 mg capsule TAKE 1 CAPSULE EVERY MORNING AND 2 CAPSULES AT BEDTIME. 2 04/16/20 18 Active fluticasone propionate (FLONASE) 50 mcg/actuation nasal spray SPRAY 1 SPRAY INTO EACH NOSTRIL TWICE A DAY 05/14/19 23 Active metoprolol XL (TOPROL-XL) 25 mg extended release tablet Take 1 tablet (25 mg total) by mouth daily 03/17/20 22 Active clonazePAM (KlonoPIN) 0.5 mg tablet TAKE 0.5 OR 1 OR 2 TABLETS NEEDED FOR SEVERE ANXIETY UP TO TWO TIMES PER DAY 01/02/20 23 Active promethazine-DM (PROMETHAZINE-D M) 1.25-3 mg/mL syrupIndication s:Cough, unspecified type Take 5 mL by mouth every 4 (four) hours as needed for cough 120 mL 03/10/20 23 Active venlafaxine XR (EFFEXOR-XR) 150 mg 24 hr capsule Take 1 capsule (150 mg total) by mouth daily 06/02/19 25 Active fluticasone propionate (FLONASE) 50 mcg/actuation nasal spray Administer 2 sprays into each nostril daily 1 each 06/13/19 25 Active ofloxacin (FLOXIN) 0.3 % otic solution 11/01/19 025 Discontinued naproxen (NAPROSYN) 500 mg tablet Take 1 tablet (500 mg total) by mouth 2 (two) times a day with meals As needed. 60 tablet 3 11/15/19 025 Discontinued busPIRone (BUSPAR) 5 mg tablet Take 1 tablet (5 mg total) by mouth 2 (two) times a day 04/10/20 025 Discontinued meloxicam (MOBIC) 15 mg tablet Take 1 tablet (15 mg total) by mouth daily 02/26/20 025 Discontinued lamoTRIgine (LaMICtal) 100 mg tablet Take 1 tablet (100 mg total) by mouth daily 10/17/19 025 Discontinued benzonatate (TESSALON) 200 mg capsule TAKE 1 CAPSULE BY MOUTH THREE TIMES A DAY NEEDED FOR COUGH FOR 5 DAYS 02/15/20 025 Discontinued al & mag hydroxide simethicone-dip henhydramine-li docaine-nystati n (MAGIC MOUTHWASH) suspension 0-5-6-1Indicati ons:Thrush Swish and swallow 10 mL every 4 (four) hours as needed (throat) 100 mL 03/10/20 025 Discontinued predniSONE (DELTASONE) 10 mg tablet PLEASE SEE ATTACHED FOR DETAILED DIRECTIONS 06/07/19 025 Discontinued cefadroxil (DURICEF) 500 mg capsule TAKE 1 CAPSULE BY MOUTH TWICE A DAY X10 DAYS 06/07/19 025 Discontinued Active Problems Problem Noted Date [...] Encounters Date Type Department Care Team Description 09/29/2024 12:00 PM CDT Office Visit [facility] Neuro Sleep [address] [facility] [place] [address] [facility] GRZEG[facility]Z (obstructive sleep apnea) (Primary Dx); Obstructive sleep apnea syndrome from Last 3 Months Immunizations Immunization Administration [...] Types Packs/Day Years Used Date Smoking Tobacco: Former Cigarettes Q uit: 06/17/2024 Passive Smoke Exposure: Past Smokeless Tobacco: Never Comments:Smoking History Pac ks/day: 1 Packs Alcohol Use Standard Drinks/Week Comments No 0 (1 standard drink = 0.6 oz pur e alcohol) Comments No Sex and Gender Information Value Date Recorded Sex Assigned at Not on file Legal Sex Female 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 Gender Identity Female 11/09/2019 8:55 AM CDT Sexual Orientation Straight 11/09/2019 8: 55 AM CDT 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 Not on file Not [...] Sign Reading Time Taken Comments Blood Pressure 143/85 09/29/2024 11:39 AM CDT Pulse 64 09/29/2024 11:39 AM CDT Temperature 37.3 C (99.2 F) 09/29/2024 11:39 AM CDT Respiratory Rate 24 06/13/2024 12:38 PM FIELD 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 Oxygen Saturation 98% 09/29/2024 11:39 AM CDT Inhaled Oxygen Concentration - - Weight 102.5 kg (226 lb) 09/29/2024 11:39 AM CDT Height 152.4 cm (5') 09/29/2024 11:39 AM CDT Body Mass Index 44.14 09/29/2024 11:39 AM CDT Plan of Treatment Health Maintenance Due Date Last Done Comments Breast Cancer Screening-Mammogram 1965 Cervical Cancer Screening 1963 Colon Cancer Screening-Colonoscopy 1963 Depression Screening 1963 Hepatitis C Screening 1963 Hepatitis B Screening 1981 Zoster Vaccine (1 of 2) 2013 Regular Well Visit/Exam 18-64 06/09/2020 06/09/2019 Influenza Vaccine (Season Ended) 2024 05/01/2019, 02/18/2015, 03/11/2013, Additional history exists DTaP/Tdap/Td Vaccine (3 - Td or Tdap) 09/05/2025 09/06/2015, 01/01/2011 Pneumococcal vaccine <65 Aged Out No longer eligible based on patient's age to complete this topic Insurance [employer] ACCESS CHOICE [employer] ACCESS CHOICE [phone] [id number] Care Teams Operating Room Aide Relationship Specialty Start Date End Date Indira Ordoñez MD [phone] (work) [facility] - General 07/04/19
--- OUTSIDE RECORDS SUMMARY | 2024-10-03 00:40 | XMS_ITS | Data Portability ---
Author Organization [facility] [place] Address [address] [place] [address] Assessment No assessment recorded. Plan of Treatment Reminders Order Date Submit Date Provider Last Modified By Organization Details Last Modified Time Details Appointments None recorded. Lab None recorded. Referral None recorded. Procedures None recorded. Surgeries None recorded. Imaging US, pelvis 2021 022 [email or web address] [place], [address], [place], [address], 23:20:48 US, transvagina l 2021 022 [email or web address] [place], [address], [address], [place], [address], 23:20:48 US, pelvis, complete 2021 022 [email or web address] [place], [address], [place], [address], 10:41:25 Medication Orders None recorded. 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 Locat ion: [place] Patho logcely [...] [facility] [address] [place], [address], 10/28/2021 09:03:34 10/23/19 22 10/22/2021 TRICH OMONA S VAGIN ROE (RRNA ) trichomonas vaginalis ribosomal RNA (rrna) Negati ve negati ve Not Available [facility] [address] [place], [address], 10/28/2021 09:03:35 10/23/19 22 10/22/2021 CT/GC (FRANSISCA) , THINP REP VIAL chlamydia trachomatis, PCR Negati ve negati ve Not Available [facility] - [address] [place], [address], 10/28/2021 09:03:35 10/23/19 22 10/22/2021 CT/GC (FRANSISCA) , THINP REP VIAL neisseria gonorrhoeae, PCR Negati ve negati ve Not Available [facility] [address] [place], [address], 10/28/2021 09:03:35 11/12/19 22 11/11/2021 , calvin s No observ ation record ed. [email or web address] [place] [address], [place], [address], 11/11/2021 12:59:22 11/12/19 22 11/11/2021 US, trans vagin al No observ ation record ed. [email or web address] [place] [address], [place], [address], 11/11/2021 12:59:31 11/12/19 22 11/11/2021 US, pelvi s No observ ation record ed. CHALINO Mariana [address], [place], [address], 11/12/2021 11:15:11 Result Notes None recorded. Procedures Surgical History Date Name Laterality Status Provider Name and Address Organization Details Recorded Time 2 Date of Last Mammogram completed [facility] 10/22/2021 16:22:56 4 section completed [facility] 10/22/2021 16:25:20 Imaging Results None recorded. [...] mm[Hg] Valeria Keller [facility]- [address], [place], [address], [place] - [facility] 2 16:40:42 Date Recorded Body height Body mass index (BMI) Body weight Provider Name and Address Organization Details Last Updated DateTime 10/22/2021 152.4 cm 47.4 kg/m2 399130.23 g Carolina Sabillon [facility] 10/22/2021 16:19:22 Social History Question Answer Notes LastModified by [employer] Details LastModified Time Tobacco Smoking Status Current Every Day Smoker Carolina Sabillon [facility], [facility] 10/22/2021 16:24:57 Are You Blind Or [...] Functional Status Question Answer Note LastModified by [employer] Details LastModified Time Do you use any [...] anxious, or unable to sleep at night)? 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 Gynecologi c examination 80403544 Z01.419 Take Calcium with Vitamin D 12-1500mg daily. Do monthly self breast exams. It is advised to get annual flu shot in the fall and she could obtain at [facility] or [facility]. If you haven't received [...] UTD PCP Routine Labs UTD PCPMammo ordered [id number] Diego Jung MD [place] [address] [address] 11/11/2021 11:59:14 11/11/2021 12:43:02 Pain in pelvis 48422582 R10.2 Health Concerns Section Related Observation LastModified by Organization Detai ls LastModified Time None Recorded Concern Status LastModified by Organization Details LastModified Time None Recorded Advance Directives Directive None Recorded Payers Insurance Date Sequence Insurance Name Policy Number Policy Wiggins Covered Member ID Wiggins Member ID Guarantor Name 11/08/2021 1 [place] [id number] 3 Malgorzata Maher [id number] Malgorzata Maher Notes Date Note Type Note Provider Name and Address Organization Details Recorded Time 2 text/html 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 10/22/2021 16:47:39 OBGyn Episode Ob Episode Information Episode Created Date Number of Fetuses Patient Bloodtype Patient rh Status Prepregnancy Weight lbs Domestic Partner Domestic Partner Phone Father Name Regional Guide Status 10/23/19 22 1 CLOSED Fetus Data First Name Last Name Admitted to NICU Weight (g) Sex Living Outcome Pediatric Complications Fetus ID Race Codes Race Delivery Type M 95889 Vaginal Delivery Osmar Calculation Initial Osmar Date [...] Domestic Partner Domestic Partner Phone Father Name Regional Guide Status 10/23/19 22 1 CLOSED Fetus Data First Name Last Name Admitted to NICU Weight (g) Sex Living Outcome Pediatric Complications Fetus ID Race Codes Race Delivery Type M [id number] Primary Osmar Calculation Initial Osmar Date Initial [...]
--- OUTSIDE RECORDS SUMMARY | 2024-10-03 00:40 | XMS_ITS | Continuity of Care Document ---
Author Organization [facility] Address [address] [place] [address] [place] [address] Phone Care Team Providers Care Manager Target Name Role Phone Elpidio Lu Unavailable Unavailable Procedures Procedure Date Eye Exam & Treatment Refraction Office/outpatient Visit, Est Advance Directives Directive Yes / No Effective Date File Name No Information Encounters Encounter Description Practice Location Reason(s) For Visit Diagnoses Date Provider Providers Copied on Encounter Formerly [facility], [address] [place] [address] [address], [place], [place], [id number], tel:[phone] [facility] [place] No Information 0 Tabitha Magallanes. [address] , [address], [place], [place], [facility], . tel:[phone] Office/outpat ient Visit, Est Formerly [facility], [address] [place] [address] [address], [place], [place], [id number], tel:[phone] SEC [facility] No Information 0 Tabitha Magallanes. [address] , [address], [place], [address], [place]. tel:[phone] Family History Family Member Type Diagnosis Age At Onset No Information Payers Payer name Insurance type Covered republican ID Authorkena [id number](s) [employer] Plan CI [id number] Social History Type Description Quantity Date Captured [...]
--- OUTSIDE RECORDS SUMMARY | 2024-10-03 00:40 | XMS_ITS | Clinical Summary ---
Author Organization [facility] Address [address] [place] [address] Care Team Providers Care Auto Club Travel Counselor Name Role Phone Unavailable Primary Care Provider [...] Screening with HPV 1993 Mammogram Screening 2003 Pneumococcal Vaccine: 50+ Ye ars (1 of 1 - PCV) 2013 Zoster Vaccines (1 of 2) 2013 COVID-19 [...]
--- OUTSIDE RECORDS SUMMARY | 2024-10-03 00:40 | XMS_ITS | Continuity of Care Document ---
Author Organization [facility] Address [address] [place] [address] Phone Care Team Providers Care Mechanical Oxidizer Name Role Phone Stack Axel VENTURA Unavailable [...] exam knee, 4+ views Office/outpatient visit,new, [facility] 2020 Advance Directives Directive Yes / No Effective Date File Name No Information Encounters Encounter Description Practice Location Reason(s) For Visit Diagnoses Date Provider Providers Copied on Encounter Office/outpat ient visit,est, mod [facility], [address] [address], [place], [place], [id number], [place] tel:[phone] [facility] bilat knees (chief complaint) Pain in left kneePain in right kneeBilateral primary osteoarthritis of knee 2 Stack Axel. [address], [address] [address], [place], [place], [id number] , [place]. tel: [phone] [facility], [address], [id number], [place] tel:[phone] [facility] Bilateral knees (chief complaint) Pain in left kneePain in right kneeBilateral primary osteoarthritis of knee 2 Stack Axel. [email or web address] [facility] [address], [place], [place], [id number] , [place]. tel: [phone] [facility], [address], [place], [place], [id number], [place] tel:[phone] [facility] Bilateral knees (chief complaint) Bilateral primary osteoarthritis of kneePain in right kneePain in left knee 2 Stack Axel. [address], [place], [place], [id number] , [place]. tel: [phone] [facility], [address] [address], [place], [place], [id number], [place] tel:[phone] [facility] bilateral knees (chief complaint) Pain in right kneePain in left kneeBilateral primary osteoarthritis of knee 1 Stack Axel. [address], [address], [id number] , [place]. tel: [phone] Office/outpat ient visit,est, [facility], [address], [place], [place], [id number], [place] tel:[phone] [facility] Bilat knees (chief complaint) Pain in right kneePain in left kneeBilateral primary osteoarthritis of knee 1 Stackjose Reyna. [address], [place], [place], [id number] , [place]. tel:[phone] Office/outpat ient visit,new, [facility], [address] [facility] [address], [place], [place], [id number], [place] tel:[phone] [facility] left knee (chief complaint) Pain in left kneeUnilateral primary osteoarthritis, left knee 1 Lisa akers. [address] [address], [place], [place], [id number] , [place]. tel:[phone] Referring Provider: Kwadwo Dumont [address], [place], [address] . tel:[phone] Family History Family Member Type Diagnosis Age At Onset No Information Payers Payer name Insurance type Covered alliance party ID Analia lemons(s) Belinda Patel [facility] [id number] Social History Type Description Quantity Date [...] discharged in stable condition. Dictation completed with [employer] software, grammatical variances in spelling errors may [...] discharged in stable condition. Dictation completed with [employer] software, grammatical variances in spelling errors may [...] discharged in stable condition. Dictation completed with [employer] software, grammatical variances in spelling [...]
--- OUTSIDE RECORDS SUMMARY | 2024-10-03 00:40 | XMS_ITS | Referral Summary ---
Author Organization [facility] Address [address] [place] [address] Care Team Providers Care Flap Presser Name Role Phone Indira Ordoñez MD Primary Care Provider [phone] Encounters Date Type Department Care Team Description 09/29/2024 12:00 PM CDT Office Visit [facility] [address] [place] [address] Carlos A Rizo MD GRZEGORZ (obstructive sleep apnea) (Primary Dx); Obstructive sleep apnea syndrome from Last 3 Months Allergies No known [...] simethicone-dip henhydramine-li docaine-nystati n (MAGIC MOUTHWASH) suspension 6-7-2-1Indicati ons:Thrush Swish and swallow 10 mL every [...] on file Legal Sex Female 9:05 PM ECOLOGIST Gender Identity Female 11/09/2019 8:55 AM CDT Sexual Orientation Straight 11/09/2019 8: 55 AM CDT 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 ACCESS CHOICE Care Teams Flap Presser Relationship Specialty Start Date End Date Indira Ordoñez MD PCP - General 07/04/19
[2024-10-03] MEDS: KETOROLAC 15 MG/ML VIAL (*BKC) IV PUSH (07:00)
[2024-10-03] MEDS: ACETAMINOPHEN 500 MG TABLET 1000 MG PO (07:00)
[2024-10-03] MEDS: LACTATED RINGERS 1,000 ML 30 ML IV CONT ×2 (07:00→13:12)
--- NOTE | 2024-10-03 07:17 | PM.IMHP ---
H&P: HPI History of Present Illness Date/Time: 10/03/24 07:17 Chief Complaint: Cecal tubulovillous polyp without dysplasia Narrative: Ms. Maher returns for recheck of her abdominal pain. She was originally referred to us by Dr. 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 She denies blood in her stool and no dark stools. No family history of colon cancer. At her initial visit, she was c/o RUQ abdominal pain that radiates to her back and bloating. She was sent for a RUQ abdominal ultrasound which showed a positive Sparks's sign of the gallbladder. Evaluation for cholecystitis advised. Fat infiltration of the liver. Echogenic pancreas suggestive of fat infiltration. Otherwise, normal right upper quadrant ultrasound. Eating has improved some, but she continues to experience persistent bloating which is uncomfortable. Her pain is more positional or with movement and not food related. Review of Systems Review of Systems: The remainder of the review of systems to include constitutional, HEENT, cardiovascular, respiratory, GI, , integumentary, musculoskeletal, endocrine, immunologic, hematologic, psychiatric, and neurologic are all negative except for which is mentioned above in the HPI. [facility] Past Medical History Medical History Hypertension Anxiety and depression Sleep apnea HLD (hyperlipidemia) Bipolar 1 disorder Surgical History Surgical History H/O: section Family History Family History Mother CHF (congestive heart failure) Sibling Hx of artificial heart valve replacement Pacemaker Social History Social History Smoking packs per day: 0.5 Smoking cigarettes per day: 10.0 Years smoked: 22 Smoking pack-years: 11.00 Smoking status: Former smoker Tobacco type: cigarettes Second hand tobacco smoke exposure: Yes Smoking end date: 05/21/24 Alcohol intake: never Substance use: never Substance use type: does not use Do You Feel Safe in your Home?: Yes Lack of Transportation: No Lack of Food: Sometimes True Current Housing: I Have Housing Concerned About Future Housing: Decline to Answer Difficulty Paying Gas/Electric Bills: YES Difficulty Paying for Meds: Decline to Answer Currently Unemployed: YES Education: Bachelor's Degree Difficulty w/ Childcare or Family Care: No Living arrangements: alone Occupation/Education: occupation Gender identity (if verbalized by the patient): Female Spiritual care concerns: No Meds Home Medications and Allergies Home Medications ?Medication ?Instructions ?Recorded ?Confirmed ?Type simvastatin 20 mg tablet See Rx Instructions .Route 07/20/24 09/29/24 Rx .COMPLEX #90 tabs ciprofloxacin HCl 500 mg tablet 500 mg PO .COMPLEX #1 tablet 07/27/24 09/29/24 Rx metoprolol succinate 25 mg 25 mg PO DAILY #90 tabs 08/30/24 09/29/24 Rx tablet,extended release 24 hr clonazepam 0.5 mg tablet 0.5 mg PO Q12H PRN anxiety 09/27/24 09/29/24 History fluticasone propionate 50 1 spray intranasal Q12H PRN nasal 09/27/24 09/29/24 History mcg/actuation nasal congestion spray,suspension rkpbafpsfql-kfblzinmi-ggya130-hyal 2 tablet PO HS 09/27/24 09/29/24 History 750 mg-100 mg-125 mg-1.65 mg tablet ibuprofen 200 mg capsule 600 mg PO HS PRN pain 09/27/24 09/27/24 History lithium carbonate 300 mg capsule 300 mg PO BID 09/27/24 09/29/24 History turmeric 400 mg capsule 800 mg PO DAILY 09/27/24 09/29/24 History venlafaxine 150 mg 150 mg PO QAM 09/27/24 09/29/24 History capsule,extended release 24 hr Allergies Allergy/AdvReac Type Severity Reaction Status Date / Time No Known Allergies Allergy Verified 09/29/24 08:32 Exam Const: General: comfortable and no acute distress HENMT: Ears: TM's normal bilaterally Face/Nose/Sinus: Normal nares present Mouth: Yes moist mucous membranes Eyes: General: appearance normal, both eyes and all related structures Sclera: sclerae normal Pupils: Equal, round and reactive pupils present EOM: EOMs intact bilaterally Neck: Neck: supple and no JVD Resp: Effort & Inspection: normal respiratory effort Auscultation: clear to auscultation bilaterally Cardio: Rate: regular rate Rhythm: regular rhythm GI: GI Palp: Yes Soft to palpation, No Firmness to palpation present (GI), No Tenderness to palpation present (GI), No Guarding due to palpation present (GI) and No Hernia present Skin: General skin exam: normal color and no rashes or lesions noted Neuro: General: gait normal Speech: normal speech Motor exam (neuro): 5/5 motor strength present throughout Sensory Exam: normal sensation Extrem: General: normal to inspection Psych: Mental Status: mental status grossly normal Affect: normal affect Assessment and Plan Assessment and plan (1) Cecal polyp: Code(s): K63.5 - Polyp of colon Status: Acute Assessment and Plan: Recent ultrasound was negative for gallstones. Currently, patients symptoms are more positional and not directly related to eating. Recommended deferring further gallbladder work-up for now, and addressing abnormal colon polyp. Recommended proceeding with robotic assisted laparoscopic right hemicolectomy, possible open in the OR under general anesthesia. Discussed the surgery with the patient in detail including description, risks, benefits, the need for bowel prep and Ensure nutrition drinks, risk for anastomotic leak and need for return for surgery, possible ostomy placement, expected hospital stay after surgery, anticipated recovery, and expected outcome. All questions answered and she is in agreement with this plan.
--- NOTE | 2024-10-03 07:20 | WPDHPUPDATE1 ---
History and Physical Update Update Date/Time: 10/03/24 07:20 History and Physical has been reviewed, including an updated exam of the patient. There are NO changes in the patient's condition. Risks, benefits, and alternatives have been discussed and questions answered. Patient agrees to proceed with procedure.
--- NOTE | 2024-10-03 07:23 | P.PNAN_ITS ---
Anes - Initial Pre Proc Eval Procedure: Operation Date: 10/03/24 07:30 Proposed Procedures p Robotic Assisted Laparoscopic Right Hemicolectomy Possible Open - Je Alberts MD Date/Time: 10/03/24 07:23 Surgeon: Je Alberts MD Pre Op Diagnosis: Cecal polyp Patient Data Age: 59 Gender: F Height: 1.52 m Weight: 102.7 kg Last Vital Signs Temp 99.1 F 09/27/24 10:18 Pulse 62 09/27/24 10:18 Resp 16 09/27/24 10:18 BP 141/74 H 09/27/24 10:18 Pulse Ox 98 09/27/24 10:18 O2 Del Method Room Air 09/27/24 10:18 Allergies Allergy/AdvReac Type Severity Reaction Status Date / Time No Known Allergies Allergy Verified 09/29/24 08:32 Home Medications ?Medication ?Instructions ?Recorded ?Confirmed ?Type simvastatin 20 mg tablet See Rx Instructions .Route 07/20/24 09/29/24 Rx .COMPLEX #90 tabs ciprofloxacin HCl 500 mg tablet 500 mg PO .COMPLEX #1 tablet 07/27/24 09/29/24 Rx metoprolol succinate 25 mg 25 mg PO DAILY #90 tabs 08/30/24 09/29/24 Rx tablet,extended release 24 hr clonazepam 0.5 mg tablet 0.5 mg PO Q12H PRN anxiety 09/27/24 09/29/24 History fluticasone propionate 50 1 spray intranasal Q12H PRN nasal 09/27/24 09/29/24 History mcg/actuation nasal congestion spray,suspension mzyvtorxsug-hkdcragxw-rbuv390-hyal 2 tablet PO HS 09/27/24 09/29/24 History 750 mg-100 mg-125 mg-1.65 mg tablet ibuprofen 200 mg capsule 600 mg PO HS PRN pain 09/27/24 09/27/24 History lithium carbonate 300 mg capsule 300 mg PO BID 09/27/24 09/29/24 History turmeric 400 mg capsule 800 mg PO DAILY 09/27/24 09/29/24 History venlafaxine 150 mg 150 mg PO QAM 09/27/24 09/29/24 History capsule,extended release 24 hr Patient hx anesthesia problems: none Family hx anesthesia problems: none Results Review: All pre-operative results and documents have been reviewed as part of the pre- operative evaluation. PMFSH Past Medical History Medical History Hypertension Anxiety and depression Sleep apnea HLD (hyperlipidemia) Bipolar 1 disorder Surgical History Surgical History H/O: section Family History Family History Mother CHF (congestive heart failure) Sibling Hx of artificial heart valve replacement Pacemaker Social History Social History Smoking packs per day: 0.5 Smoking cigarettes per day: 10.0 Years smoked: 22 Smoking pack-years: 11.00 Smoking status: Former smoker Tobacco type: cigarettes Second hand tobacco smoke exposure: Yes Smoking end date: 05/21/24 Alcohol intake: never Substance use: never Substance use type: does not use Do You Feel Safe in your Home?: Yes Lack of Transportation: No Lack of Food: Sometimes True Current Housing: I Have Housing Concerned About Future Housing: Decline to Answer Difficulty Paying Gas/Electric Bills: YES Difficulty Paying for Meds: Decline to Answer Currently Unemployed: YES Education: Bachelor's Degree Difficulty w/ Childcare or Family Care: No Living arrangements: alone Occupation/Education: occupation Gender identity (if verbalized by the patient): Female Spiritual care concerns: No Anes - Eval Final PreProcedure Day of Procedure 10/03/24 07:23 Patient weight: morbidly obese Heart: regular rate and rhythm Lungs: clear to auscultation Airway: Mallampati scale class III Neurological: alert and oriented Last oral intake: >/= 8 hours ASA classification: III Emergent: no Anesthetic plan: proceed Anesthesia type and monitoring: general ETT and standard monitoring Results Review: All pre-operative results and documents have been reviewed as part of the pre- operative evaluation. Informed Consent: The patient's anesthetic plan and its attendant risks and benefits were discussed with the patient/family/POA. Questions were solicited and answers provided to the satisfaction of the patient/family/POA.
[2024-10-03] MEDS: ceFAZolin 2 GM/D5W 50 ML 2 GM/50 ML BAG IVPB (07:33)
[2024-10-03] MEDS: metroNIDAZOLE 500 MG/ISO 100ML 500 MG/100 ML BAG 100 MG IVPB (07:33)
[2024-10-03] MEDS: LIDO 1%/EPINEPHRINE 1:100,000 20 ML VIAL 30 ML INFILTRATE (08:53)
[2024-10-03] MEDS: BUPivacaine HCL 0.5% 10 ML AMP 30 ML INFILTRATE (08:53)
[2024-10-03] MEDS: INDOCYANINE GREEN 25 MG VIAL WITH DILUENT 3.75 MG IV PUSH (11:04)
--- NOTE | 2024-10-03 12:14 | S_PTH ---
PATIENT: Malgorzata Maher LOC: [id number] U#:[id number] AGE/SX: 59/F ROOM: 327 RE10/03/[address]: Rebekah Rousseau PA-C : 1965 BED: 01 DIS: 10/06/2024 SPEC #: [id number] RECD: 10/03/24 12:58 STATUS: BUSTER REJael #: [id number] NAYELY: 10/03/24 12:[address]: Je Alberts DEPT: [facility] Surgical RECD BY: Cassidy Burt ENTERED: 10/03/24 12:59 SP TYPE: Surgical OTHR DR: Indira Ordoñez, Tissues: A - Colon Segment NonTumor Procedures: Hematoxylin and Eosin Stain Gross and Microscopic Level 5
[2024-10-03] MEDS: KETOROLAC 30 MG/ML VIAL (*BKC) IV PUSH (12:39)
--- NOTE | 2024-10-03 13:38 | PM.OP ---
Procedure Note - Brief Procedure Note - Brief Date of procedure: 10/03/24 Cecal tubulovillous polyp Procedure performed: Robotic assisted laparoscopic right hemicolectomy with stapled ileocolonic moly-iy-fsbp anti peristaltic anastomosis Surgeon: Je Alberts MD Anesthesia: GETA Implants: none Estimated blood loss (mL): 50 Drains: No Packing: No Pathology: Yes ( right colon and appendix to pathology) Complications: No immediate complications Condition: Stable Disposition: PACU
[2024-10-03] MEDS: fentaNYL CITRATE INJ (*CRX) 100 MCG/2 ML VIAL 25 MCG IV PUSH ×4 (14:05→14:39)
--- NOTE | 2024-10-03 15:21 | ADMGEN ---
This patient, Malgorzata Maher, was admitted to -. Patient/family oriented to hospital policies and general routines including ID bracelet, bed and alarms, visiting hours, pain management, procedures, bathroom and other care routines, personal items, smoking policy, room service/diet, and visiting hours. Information on how to activate the Rapid Response Team has been discussed. Patient/Family are encouraged to report perceived risks to care and to ask questions if they do not understand what they are told or what they should do.
[2024-10-03] MEDS: LACTATED RINGERS 1,000 ML 120 ML IV CONT (15:32)
[2024-10-03] MEDS: ceFAZolin 1 GM/NS 50 ML 1 GM/50 ML BAG IVPB ×2 (15:33→21:22)
[2024-10-03] MEDS: ONDANSETRON INJ 4 MG/2 ML VIAL IV PUSH (17:15)
[2024-10-03] MEDS: IBUPROFEN IV 800 MG/200 ML 800 MG/200 ML BAG 400 MG IVPB ×2 (17:16→23:30)
[2024-10-03] MEDS: MORPHINE SULFATE (*CRX) 4 MG/ML INJ IV PUSH (17:22)
[2024-10-03] MEDS: oxyCODONE HCL (*CRX) 5 MG TAB IR PO (21:20)
[2024-10-03] MEDS: LITHIUM CARBONATE 300 MG CAPSULE 600 MG PO (21:21)
[2024-10-03] MEDS: METOPROLOL SUCCINATE EXT REL 25 MG TABCR PO (21:21)
[2024-10-03] MEDS: SIMVASTATIN 20 MG TABLET PO (21:21)
[2024-10-03] MEDS: ALVIMOPAN 12 MG CAPSULE PO (21:21)
[2024-10-03] MEDS: WATER FOR IRRIGATION, STERILE 1,000 ML BOTTLE 1000 ML (23:12)
[2024-10-04 03:57] VITALS: BP 113/64; PULSE 69; RESP 16; TEMP 37.1; O2SAT 97
[2024-10-04] MEDS: HYDROcodone/acetaminophen (*CRX) 5-325 MG TABLET 1 TAB PO (04:20)
[2024-10-04] MEDS: ceFAZolin 1 GM/NS 50 ML 1 GM/50 ML BAG IVPB (05:00)
[2024-10-04] MEDS: IBUPROFEN IV 800 MG/200 ML 800 MG/200 ML BAG 400 MG IVPB ×3 (05:30→17:08)
[2024-10-04 06:32] LABS: Basophils Percent Auto 0.2 % (0.2-1.2); Eosinophils Absolute Auto 0.1 K/mm3 (0-0.3); Eosinophils Percent Auto 0.5 % (0-4.4); Hematocrit 34.5 % (37.0-47.0); Hemoglobin 10.9 g/dL (12.0-15.0); Immature Granulocyte Absolute 0.04 K/mm3 (0.00-0.031); Immature Granulocyte Percent A 0.4 % (0-0.5); Lymphocytes Absolute Auto 1.75 K/mm3 (0.9-3.2); Mean Corpuscular HGB Conc 31.6 g/dl (32-36); Mean Corpuscular Hemoglobin 28.9 pg (26-34); Mean Corpuscular Volume 91.5 fl (80-100); Mean Platelet Volume 9.5 fl (7.4-10.4); Monocytes Absolute Auto 0.8 K/mm3 (0.1-0.6); Monocytes Percent Auto 7.7 % (2.6-8.5); Neutrophils Absolute Auto 7.1 K/mm3 (1.3-6.7); Neutrophils Percent Auto 73.2 % (45.5-73.1); Platelet Count Result 260 k/mm3 (150-375); Red Blood Count 3.77 M/mm3 (4.2-5.4); Red Cell Distribution Width 12.2 % (11.5-14.5); White Blood Count 9.7 K/mm3 (4.5-10.0)
[2024-10-04 06:44] LABS: Anion Gap 5 mmol/L (4-12); Blood Urea Nitrogen 9 mg/dL (7-17); Calcium 9.3 mg/dL (8.4-10.2); Carbon Dioxide 27 mmol/L (22-30); Chloride 107 mmol/L (98-107); Estimated CRCL calculation 63 ml/min; Estimated Glomerular Filt Rate > 60; Glucose 111 mg/dL (65-110); Potassium 4.1 mmol/L (3.4-5.0); Sodium 139 mmol/L (137-145)
[2024-10-04 07:57] VITALS: BP 120/65; PULSE 58; RESP 18; TEMP 35.8; O2SAT 96
[2024-10-04] MEDS: ONDANSETRON INJ 4 MG/2 ML VIAL IV PUSH (09:28)
[2024-10-04] MEDS: LITHIUM CARBONATE 300 MG CAPSULE PO (09:29)
[2024-10-04] MEDS: VENLAFAXINE HCL XR 75 MG CAP.ER.24H 150 MG PO (09:29)
[2024-10-04] MEDS: ALVIMOPAN 12 MG CAPSULE PO ×2 (09:29→21:15)
[2024-10-04] MEDS: oxyCODONE HCL (*CRX) 5 MG TAB IR PO ×2 (09:29→16:13)
[2024-10-04] MEDS: PANTOPRAZOLE 40 MG TABLET PO (09:30)
[2024-10-04] MEDS: ENOXAPARIN 40 MG/0.4 ML SYRINGE SUB-Q (09:30)
[2024-10-04] MEDS: LIDOCAINE 5% PATCH 1 PATCH TRANSDERM (09:30)
[2024-10-04 11:52] VITALS: BP 131/68; PULSE 64; RESP 16; TEMP 35.9; O2SAT 96
[2024-10-04 12:01] VITALS: BMI 41.8
--- NOTE | 2024-10-04 13:35 | WPDPN ---
Progress Note: A&P Assessment and Plan (1) Cecal polyp: Code(s): K63.5 - Polyp of colon Status: Acute Assessment and Plan: Postop day 1 after robotic assisted laparoscopic right hemicolectomy with invi-wr-edxp stapled ileocolic anastomosis. Overall she is doing well but needs to mobilize more. I have instructed the nurses to get her up and sitting up in a chair for few hours this afternoon and do that again this evening. Patient can get up and walk to the bathroom as needed. We will go ahead advanced to full liquids since she did pre much tolerate clear liquids today. Repeat basic labs tomorrow. DVT prophylaxis with Lovenox ordered. GI prophylaxis with Protonix ordered. Pulmonary toilet and incentive spirometry ordered. Continue supportive management and hopefully she can go home next 1 to 2 days. She has not been sleeping well and so she is requesting a sleep aid. We will go and give her 5mg of Ambien p.o. tonight if needed for sleep. Subjective Date/time seen: 10/04/24 13:35 Interval history: Patient awake and alert. She is in bed but has gotten up today to do a sponge bath in her bathroom. She did have some dark liquid stools yesterday but no bloody stools. She had some nausea yesterday associated with getting some morphine. Today she does have much of an appetite but not much nausea. White blood count is normal. Afebrile. Vital signs stable. Hemoglobin dropped a little but that is likely due to small amount of blood loss as well as hemodilution. No definite sources of active blood loss. Exam GI: Other: Abdomen is obese but soft. Port site incisions small lower midline incision are intact. There is no redness or drainage. No hematomas. Expected mild tenderness to palpation around these areas. Objective Data Vital Signs Vital Signs: Vital Signs - 24 hr 10/03/24 13:40 10/03/24 13:55 10/03/24 14:10 Temperature Pulse Rate 88 104 H 97 Respiratory Rate 16 16 24 H Blood Pressure 133/56 L 159/84 H 136/74 Pulse Oximetry 98 98 95 Oxygen Delivery Simple Face Mask Room Air Room Air Oxygen Flow Rate 6 10/03/24 14:20 10/03/24 14:25 10/03/24 14:30 Temperature 36.7 C Pulse Rate 90 88 91 Respiratory Rate 16 16 17 Blood Pressure 135/69 146/68 H 135/69 Pulse Oximetry 92 95 93 Oxygen Delivery Room Air Room Air Oxygen Flow Rate 10/03/24 14:40 10/03/24 14:45 10/03/24 15:00 Temperature 36.7 C Pulse Rate 84 91 89 Respiratory Rate 16 15 16 Blood Pressure 140/74 132/70 132/70 Pulse Oximetry 96 94 93 Oxygen Delivery Room Air Room Air Oxygen Flow Rate 10/03/24 15:10 10/03/24 15:15 10/03/24 16:10 Temperature 36.7 C 36.7 C Pulse Rate 77 80 Respiratory Rate 16 16 Blood Pressure 139/72 135/70 Pulse Oximetry 99 99 Oxygen Delivery Room Air Oxygen Flow Rate 10/03/24 20:00 10/03/24 22:00 10/03/24 23:57 Temperature 36.8 C 35.7 C L Pulse Rate 67 63 Respiratory Rate 16 16 Blood Pressure 130/73 113/65 Pulse Oximetry 96 96 Oxygen Delivery Room Air Oxygen Flow Rate 10/04/24 03:57 10/04/24 07:57 10/04/24 08:00 Temperature 37.1 C 35.8 C L Pulse Rate 69 58 L Respiratory Rate 16 18 Blood Pressure 113/64 120/65 Pulse Oximetry 97 96 Oxygen Delivery Room Air Oxygen Flow Rate 10/04/24 11:52 Temperature 35.9 C L Pulse Rate 64 Respiratory Rate 16 Blood Pressure 131/68 Pulse Oximetry 96 Oxygen Delivery Oxygen Flow Rate Intake/Output Intake/Output: Intake & Output 10/01/24 10/02/24 10/03/24 10/04/24 23:59 23:59 23:59 23:59 Intake Total 950 806 Balance 950 806 Meds/Results Medications: Active Medications Generic Name Dose Route Start Last Admin Trade Name Freq PRN Reason Stop Dose Admin Acetaminophen 1,000 mg 10/03/24 15:02 Acetaminophen 500 Mg Tablet PO Q6H PRN Mild Pain (1-3) or Fever Hydrocodone Bitart/Acetaminophen 1 tab 10/03/24 15:02 10/04/24 04:20 Hydrocodone/Acetaminophen (*Crx) 5-325 Mg Tablet PO 1 tab Q4H PRN Administration Pain Rated 4-6 Alvimopan 12 mg 10/03/24 21:00 10/04/24 09:29 Alvimopan 12 Mg Capsule PO 10/04/24 21:01 12 mg Q12HR BUTCH Administration Clonazepam 0.5 mg 10/03/24 15:02 Clonazepam (*Crx) 0.5 Mg Tablet PO Q12H PRN anxiety Enoxaparin Sodium 40 mg 10/04/24 09:00 10/04/24 09:30 Enoxaparin 40 Mg/0.4 Ml Syringe SUB-Q 40 mg DAILY BUCTH Administration Fluticasone Propionate 1 spray 10/03/24 15:02 Fluticasone Propionate 0.05% Na Spr 16 Gm Btl (*Bkc) NASAL Q12H PRN nasal congestion Ibuprofen 800 mg in 200 mls @ 400 mls/hr 10/03/24 18:00 10/04/24 12:11 Caldolor 800 Mg/200 Ml IVPB 400 mls/hr Q6HR BUTCH Administration Lactated Ringer's 1,000 mls @ 120 mls/hr 10/03/24 15:02 10/04/24 01:02 Lr - Lactated Ringers Iv IV CONT Not Given .Q8H20M BUTCH Lidocaine 1 patch 10/04/24 09:00 10/04/24 09:30 Lidocaine 5% Patch TRANSDERM 1 patch DAILY BUTCH Administration Frohna Carbonate 600 mg 10/03/24 21:00 10/03/24 21:21 Frohna Carbonate 300 Mg Capsule PO 600 mg HS BUTCH Administration Frohna Carbonate 300 mg 10/04/24 09:00 10/04/24 09:29 Frohna Carbonate 300 Mg Capsule PO 300 mg QAM BUTCH Administration Metoprolol Succinate 25 mg 10/03/24 21:00 10/03/24 21:21 Metoprolol Succinate Ext Rel 25 Mg Tabcr PO 25 mg HS BUTCH Administration Morphine Sulfate 4 mg 10/03/24 15:02 10/03/24 17:22 Morphine Sulfate (*Crx) 4 Mg/Ml Inj IV PUSH 4 mg Q4H PRN Administration Pain Rated 7-10 Ondansetron HCl 4 mg 10/03/24 15:02 10/04/24 09:28 Ondansetron Inj 4 Mg/2 Ml Vial IV PUSH 4 mg Q6H PRN Administration Nausea And Vomiting Oxycodone HCl 5 mg 10/03/24 15:02 10/04/24 09:29 Oxycodone Hcl (*Crx) 5 Mg Tab Ir PO 5 mg Q4H PRN Administration Pain Rated 7-10 Pantoprazole Sodium 40 mg 10/04/24 09:00 10/04/24 09:30 Pantoprazole 40 Mg Tablet PO 40 mg QAM BUTCH Administration Simvastatin 20 mg 10/03/24 21:00 10/03/24 21:21 Simvastatin 20 Mg Tablet PO 20 mg HS BUTCH Administration Venlafaxine HCl 150 mg 10/04/24 09:00 10/04/24 09:29 Venlafaxine Hcl Xr 75 Mg Cap.Er.24h PO 150 mg QAM BUTCH Administration Labs Labs: Laboratory Results - last 24 hr 10/04/24 06:09 WBC 9.7 RBC 3.77 L Hgb 10.9 L D Hct 34.5 L MCV 91.5 MCH 28.9 MCHC 31.6 L RDW 12.2 Plt Count 260 MPV 9.5 Immature Gran % (Auto) 0.4 Neut % (Auto) 73.2 H Lymph % (Auto) 18.0 L [place] % (Auto) 7.7 Eos % (Auto) 0.5 Baso % (Auto) 0.2 Lymph # (Auto) 1.75 [place] # (Auto) 0.8 H Eos # (Auto) 0.1 Baso # (Auto) 0.0 Abs Immat Gran (auto) 0.04 H Absolute Neuts (auto) 7.1 H Absolute Nucleated RBC 0.000 Nucleated RBC % 0.0 Sodium 139 Potassium 4.1 Chloride 107 Carbon Dioxide 27 Anion Gap 5 BUN 9 D Creatinine 0.85 Estim Creat Clear Calc 63 Estimated GFR > 60 Glucose 111 H Calcium 9.3
--- NOTE | 2024-10-04 14:11 | P.OP_ITS ---
Procedure Note - Detailed Date of Procedure 10/04/24 Pre-op Diagnosis Cecal polyp Post-op Diagnosis Same Procedure Performed Robotic assisted laparoscopic right hemicolectomy with [id number] stapled ileocolic anastomosis Surgeon Je Alberts MD Global Sales Director Darryl GANN Anesthesia General Indications Patient is a 59-year-old female who underwent colonoscopy and was found to have a large cecal polyp near the appendiceal orifice which could not be endoscopically removed. 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 She presents now for elective robotic assisted laparoscopic right hemicolectomy to remove the cecal polyp. Findings The patient had a approximately 2 cm cecal polyp right at the appendiceal orifice. No liver lesions were seen on laparoscopy. No peritoneal studding was seen. No enlarged abnormal lymph nodes were seen in the mesentery. There were no adhesions within the abdomen. Description of Procedure After informed consent was obtained patient brought to the operating room she was placed supine position and general endotracheal anesthesia was administered. A Darden catheter was placed decompress the bladder an orogastric tube was placed decompress stomach. The abdomen was then prepped and draped usual sterile fashion. A time-out was then performed, correctly identifying the patient as well as the procedure to be performed. She was given perioperative IV antibiotics. I then started by entering the abdomen the left upper quadrant utilizing a 5mm Optiview port. Once inside the abdomen insufflated to adequate pneumoperitoneum of 15mmHg of CO2. A brief laparoscopic survey of the abdomen revealed no peritoneal masses or studding. No adhesions were seen. View of the liver showed no surface nodules. I then placed additional 8mm robotic trocar ports in the lower midline and left lower quadrant and left upper quadrants of the abdomen. A 12mm robotic trocar port for the robotic stapler was placed in the left lateral abdominal wall. Patient was then rotated to the left side. The [employer] Dirk robot was then brought to the patient's bedside and docked to the right side of the operating table. Robotic arms were then attached the robotic ports. Robotic instruments were then advanced into the abdomen under direct visualization. I then scrubbed out the procedure sent down at the robotic console to perform the dissection. I 1st started by moving the small bowel out of the right side of the abdomen the right lower quadrant the abdomen and bring it to the left side of the abdomen. I was then able to identify the transverse colon and then traced this back to the hepatic flexure and then down to the cecum. There is no obvious evidence of masses extra extending through the wall of the cecum. There was laparoscopic instruments I then tented up the cecum and stretch the mesentery to the right side of the colon. I was able to easily identify the ileocolic pedicle and then proceeded to utilize robotic dissection with Endo MO sebas to incise the peritoneum over the mesentery and then very carefully dissect down to the ileocolic vessels. After I dissected out the ileocolic vessel circumferentially I then used the robotic vessel sealer to divide the ileocolic vessels midpoint in the mesentery. As this was not a definitive surgical resection for cancer I did not feel I need to take the ileocolic pedicle at the takeoff with the aorta. I then proceeded to release the omentum off of the hepatic flexure and proximal transverse colon. This is done by holding up the omentum and then dividing the omentum off of the transverse colon utilizing the vessel sealer. This part of the omentum was then flipped over the omentum onto the colon. I then mobilized the cecum dividing the lateral attachments of the peritoneum to the cecum and appendix. I continued mobilizing the ascending colon and hepatic flexure of the colon by dividing the lateral peritoneal attachments and the hepatocolic ligaments utilizing the vessel sealer. I then returned to the mesenteric defect where I had divided the ileocolic vessels. I continued to open up the mesentery in this area with the vessel sealer and then identified the 3rd portion of the and kept my dissection lateral to this part higher in the mesentery towards the wall of the colon. The mesentery was divided with the vessel sealer up to the midpo rtion of the transverse colon. I then proceeded to use my tip up robotic grasper and made a defect through the mesentery to the mid transverse colon. I then also made a defect through the mesentery to the terminal ileum a couple cm proximal to the ileocecal valve. I then had Anesthesia give the patient 3cc of ICG dye intravenously. I then waited 3minutes and then utilized the firefly mode on the [employer] robot and confirmed that there appeared to be good vascular blood supply to the areas of the colon and terminal ileum were intended to perform the proximal and distal lines of resection. I then used a 60mm robotic laparoscopic stapler with a blue load to divide both the mid transverse colon and the terminal ileum. The remaining part of the mesentery to the colon were then divided utilizing the vessel sealer staying away from the duodenum. Once this pus was completely freed I then placed into the left upper quadrant of the abdomen. I then brought the end of the ileum and brought it up to the mid transverse colon. The small bowel reached easily. I then utilized a 3-0 Vicryl suture to approximate the 2 ends of the small bowel and large bowel and a [id number] anti peristaltic configuration. I then made a defect through each piece of bowel I then used a reload to the robotic 60mm stapler with a blue load and performed a stapled anastomosis between ileum and the transverse colon creating a common channel. This was done with a single firing of the stapler. The resulting enterotomy atop the anastomosis was then closed with a running 3-0 absorbable V lock suture. The 1st layer approximated the mucosa and serosa and then the 2nd layer approximated the serosa in a Lembert fashion to reinforce the the inner layer of the closure. I then reassess the anastomosis again with the firefly and both ends the bowel appeared to be well perfused. There was no tension on the anastomosis. Small amount of blood clot was then aspirated from the right upper quadrant right pericolic gutters. I then pulled the omentum down over the anastomosis in the right upper quadrant of the abdomen. I then had the [employer] Dirk robot undocked from the patient's bedside after the robotic i nstruments were all removed. I then proceeded to extract the specimen. A lower midline incision was made about 7cm in length below the umbilicus. This incision also incorporated the lower midline 8mm robotic trocar port site. Dissection was carried down through the subcutaneous tissue electrocautery into the foot midline fascia was encountered. I then removed the trocar port in place my index finger through the small defect and then divided the midline fascia to mesh length of the skin incision. A wound protector was then placed into the abdomen and then I was able to deliver the specimen through this small midline incision. Specimen included the very end of the terminal ileum, appendix, cecum, right ascending colon and proximal transverse colon. I could easily palpate the polyp in the cecum at the appendiceal orifice. This was all sent to pathology for examination. I then proceeded to close the midline fascia incision in the lower abdomen utilizing non looped 0 PDS suture started at each end incision then run to the met in the middle. The sutures were then tied together. There is no significant tension on the closure. I then irrigated out the subcu tissue sterile saline solution hemostasis was good. I then closed the subcutaneous tissues in the lower midline incision utilizing interrupted 3-0 Vicryl sutures in the subcutaneous tissues. The skin edges were then a pproximated utilizing a running subcuticular 4-0 Monocryl suture. I then retrieved the pneumoperitoneum by insufflating with CO2 once more. Then under direct visualization with a suture Passer I then proceeded to place 0 Vicryl sutures and each of the remaining port sites to close each of the port site fascial defects. The ports were all removed and then the abdomen was allowed to decompress. The sutures then tied down closing off the port sites at the fascial defects. I irrigated out the port sites sterile saline solution hemostasis was good. I then injected remaining portion of the local anesthetic mixture consisting of 1% lidocaine mixed with 0.5% Marcaine around the lower midline incision extraction specimen extraction incision and the port sites. The port sites were then closed at the skin level utilizing a running subcuticular 4-0 Monocryl suture. The incisions were all then cleaned the skin glue was applied. The patient tolerated the procedure well no complications. All sponges, needles, and instrument counts were correct at the end procedure. EBL was _50__cc. The patient was awakened and taken to recovery in stable and satisfactory condition. At the end the procedure the Darden catheter was removed as was the orogastric tube. Implants None Estimated Blood Loss 50 Drains No Packing No Pathology Yes (Right hemicolectomy specimen sent to pathology) Complications No immediate complications Condition Stable Disposition PACU [facility] Billing Surgery - Charge Forward: Surgery Billing
[2024-10-04 15:57] VITALS: BP 131/59; PULSE 66; RESP 14; TEMP 36; O2SAT 96
[2024-10-04] MEDS: LACTATED RINGERS 1,000 ML 120 ML IV CONT (16:14)
--- NOTE | 2024-10-04 17:55 | WPDANESPN ---
Anes - Prog Note Post-Op Date/Time: 10/04/24 17:55 Cardiovascular status: normal Respiratory status: normal Airway patency: baseline Mental status: baseline Post-Op hydration status: normal Vital Signs: Last Vital Signs Temp 36.0 C L 10/04/24 15:57 Pulse 66 10/04/24 15:57 Resp 14 10/04/24 15:57 BP 131/59 L 10/04/24 15:57 Pulse Ox 96 10/04/24 15:57 O2 Del Method Room Air 10/04/24 08:00 O2 Flow Rate 6 10/03/24 13:40 Pain Score (VAS): 0 I/O: Intake & Output 10/04/24 10/04/24 10/04/24 07:59 15:59 23:59 Intake Total 450 556 100 Balance 450 556 100 Laboratory Tests 10/04/24 06:09 10/04/24 06:09 10/04/24 06:09 WBC 9.7 RBC 3.77 L Hgb 10.9 L D Hct 34.5 L MCV 91.5 MCH 28.9 MCHC 31.6 L RDW 12.2 Plt Count 260 MPV 9.5 Immature Gran % (Auto) 0.4 Neut % (Auto) 73.2 H Lymph % (Auto) 18.0 L [place] % (Auto) 7.7 Eos % (Auto) 0.5 Baso % (Auto) 0.2 Lymph # (Auto) 1.75 [place] # (Auto) 0.8 H Eos # (Auto) 0.1 Baso # (Auto) 0.0 Abs Immat Gran (auto) 0.04 H Absolute Neuts (auto) 7.1 H Absolute Nucleated RBC 0.000 Nucleated RBC % 0.0 Sodium 139 Potassium 4.1 Chloride 107 Carbon Dioxide 27 Anion Gap 5 BUN 9 D Creatinine 0.85 Estim Creat Clear Calc 63 Estimated GFR > 60 Glucose 111 H Calcium 9.3 Post-procedural complaints: none Patient Feedback: Patient satisfied with anesthetic care.
[2024-10-04 19:57] VITALS: BP 135/78; PULSE 69; RESP 18; TEMP 36.8; O2SAT 95
[2024-10-04] MEDS: CYCLOBENZAPRINE HCL 5 MG TABLET PO (21:15)
[2024-10-04] MEDS: SIMVASTATIN 20 MG TABLET PO (21:15)
[2024-10-04] MEDS: METOPROLOL SUCCINATE EXT REL 25 MG TABCR PO (21:15)
[2024-10-04] MEDS: LITHIUM CARBONATE 300 MG CAPSULE 600 MG PO (21:15)
[2024-10-04] MEDS: ZOLPIDEM TARTRATE (*CRX) 5 MG TABLET PO (21:15)
[2024-10-05] MEDS: oxyCODONE HCL (*CRX) 5 MG TAB IR PO (02:01)
[2024-10-05] MEDS: IBUPROFEN IV 800 MG/200 ML 800 MG/200 ML BAG 400 MG IVPB ×3 (02:02→12:13)
[2024-10-05] MEDS: LACTATED RINGERS 1,000 ML 120 ML IV CONT ×2 (02:02→09:51)
[2024-10-05 04:33] VITALS: BP 127/63; PULSE 59; RESP 17; TEMP 36.8; O2SAT 97
[2024-10-05] MEDS: HYDROcodone/acetaminophen (*CRX) 5-325 MG TABLET 1 TAB PO ×4 (05:39→21:36)
[2024-10-05 06:13] LABS: Basophils Percent Auto 0.6 % (0.2-1.2); Eosinophils Absolute Auto 0.2 K/mm3 (0-0.3); Eosinophils Percent Auto 2.5 % (0-4.4); Hematocrit 32.3 % (37.0-47.0); Hemoglobin 10.1 g/dL (12.0-15.0); Immature Granulocyte Absolute 0.03 K/mm3 (0.00-0.031); Immature Granulocyte Percent A 0.4 % (0-0.5); Lymphocytes Absolute Auto 1.86 K/mm3 (0.9-3.2); Lymphocytes Percent Auto 26.9 % (18.3-44.2); Mean Corpuscular HGB Conc 31.3 g/dl (32-36); Mean Corpuscular Hemoglobin 28.9 pg (26-34); Mean Corpuscular Volume 92.3 fl (80-100); Mean Platelet Volume 9.5 fl (7.4-10.4); Monocytes Absolute Auto 0.5 K/mm3 (0.1-0.6); Monocytes Percent Auto 6.9 % (2.6-8.5); Neutrophils Absolute Auto 4.3 K/mm3 (1.3-6.7); Neutrophils Percent Auto 62.7 % (45.5-73.1); Platelet Count Result 236 k/mm3 (150-375); Red Cell Distribution Width 12.5 % (11.5-14.5); White Blood Count 6.9 K/mm3 (4.5-10.0)
[2024-10-05 06:32] LABS: Alanine Aminotransferase 17 U/L (6-35); Albumin Level 3.6 g/dL (3.5-5.1); Alkaline Phosphatase 65 U/L (38-126); Anion Gap 6 mmol/L (4-12); Aspartate Amino Transferase 26 U/L (14-36); Bilirubin,Total 0.5 mg/dL (0.2-1.3); Blood Urea Nitrogen 7 mg/dL (7-17); Calcium 9.1 mg/dL (8.4-10.2); Carbon Dioxide 28 mmol/L (22-30); Chloride 107 mmol/L (98-107); Estimated CRCL calculation 70 ml/min; Estimated Glomerular Filt Rate > 60; Glucose 98 mg/dL (65-110); Magnesium 1.9 mg/dL (1.6-2.3); Phosphorus 2.7 mg/dL (2.5-4.5); Potassium 3.6 mmol/L (3.4-5.0); Sodium 141 mmol/L (137-145); Total Protein 6.2 g/dL (6.3-8.2)
[2024-10-05 08:00] VITALS: O2SAT 96
[2024-10-05] MEDS: LIDOCAINE 5% PATCH 1 PATCH TRANSDERM (09:51)
[2024-10-05] MEDS: LITHIUM CARBONATE 300 MG CAPSULE PO (09:52)
[2024-10-05] MEDS: CYCLOBENZAPRINE HCL 5 MG TABLET PO ×2 (09:52→21:36)
[2024-10-05] MEDS: VENLAFAXINE HCL XR 75 MG CAP.ER.24H 150 MG PO (09:52)
[2024-10-05] MEDS: PANTOPRAZOLE 40 MG TABLET PO (09:52)
[2024-10-05] MEDS: ENOXAPARIN 40 MG/0.4 ML SYRINGE SUB-Q (09:52)
--- NOTE | 2024-10-05 12:19 | WPDPN ---
Progress Note: A&P Assessment and Plan (1) Cecal polyp: Code(s): K63.5 - Polyp of colon Status: Acute Assessment and Plan: Resected. Status post robotic assisted laparoscopic right hemicolectomy with [id number] stapled ileocolic anastomosis. Postop day 2. She seems to be improving nicely. Starting to have bowel movements. Tolerating full liquids. We will go ahead advanced her to soft low-fiber diet. Continue with IV ibuprofen while she is here at the hospital. Addition of the Flexeril for muscle relaxation seems to have helped with incision pain. Hep-Lock her IV now. Potassium is 3.6. Will give her just 40mg of potassium orally x1. I encouraged her to get up and walk to the bathroom and then walk on a halls this afternoon. Try to sit up in the chair as much as possible certainly to sit up to eat. If she tolerates solid food later today and not taking any narcotics for pain management then I think he can discharge home later this evening versus tomorrow morning. If she goes home this evening then will go and put in discharge instructions and prescriptions for pain medicine at home and if needed. Subjective Date/time seen: 10/05/24 12:19 Interval history: Patient is postop day 2 after robotic assisted laparoscopic right hemicolectomy with [id number] stapled ileocolic anastomosis. She is doing better today. She slept much better last evening after getting a dose of Ambien to help her sleep. She had small bowel movement this morning that was not bloody informed. Hemoglobins remained stable around 10. Electrolytes are good. Potassium is 3.6 today. White blood count is normal. She tolerated full liquids for breakfast without any problems. She is tolerating full liquids for lunch right now. She has been getting up to ambulate to the bathroom without difficulty. Pain is better. Exam GI: Other: Abdomen is obese but soft. Lower midline extraction incision is intact. No redness or drainage. Slight ecchymosis. Left-sided port site incisions are all healing well without any redness or drainage. Slight ecchymosis is noted those. Expected mild tenderness to palpation around the incisions. Objective Data Vital Signs Vital Signs: Vital Signs - 24 hr 10/04/24 15:57 10/04/24 19:57 10/04/24 20:00 Temperature 36.0 C L 36.8 C Pulse Rate 66 69 Respiratory Rate 14 18 Blood Pressure 131/59 L 135/78 Pulse Oximetry 96 95 Oxygen Delivery Room Air 10/05/24 04:33 Temperature 36.8 C Pulse Rate 59 L Respiratory Rate 17 Blood Pressure 127/63 Pulse Oximetry 97 Oxygen Delivery Intake/Output Intake/Output: Intake & Output 10/02/24 10/03/24 10/04/24 10/05/24 23:59 23:59 23:59 23:59 Intake Total 1950 0088 3692 Balance 1950 6686 2571 Meds/Results Medications: Active Medications Generic Name Dose Route Start Last Admin Trade Name Freq PRN Reason Stop Dose Admin Acetaminophen 1,000 mg 10/03/24 15:02 Acetaminophen 500 Mg Tablet PO Q6H PRN Mild Pain (1-3) or Fever Hydrocodone Bitart/Acetaminophen 1 tab 10/03/24 15:02 10/05/24 10:03 Hydrocodone/Acetaminophen (*Crx) 5-325 Mg Tablet PO 1 tab Q4H PRN Administration Pain Rated 4-6 Clonazepam 0.5 mg 10/03/24 15:02 Clonazepam (*Crx) 0.5 Mg Tablet PO Q12H PRN anxiety Cyclobenzaprine HCl 5 mg 10/04/24 21:00 10/05/24 09:52 Cyclobenzaprine Hcl 5 Mg Tablet PO 5 mg Q12HR BUTCH Administration Enoxaparin Sodium 40 mg 10/04/24 09:00 10/05/24 09:52 Enoxaparin 40 Mg/0.4 Ml Syringe SUB-Q 40 mg DAILY BUTCH Administration Fluticasone Propionate 1 spray 10/03/24 15:02 Fluticasone Propionate 0.05% Na Spr 16 Gm Btl (*Bkc) NASAL Q12H PRN nasal congestion Ibuprofen 800 mg in 200 mls @ 400 mls/hr 10/03/24 18:00 10/05/24 12:13 Caldolor 800 Mg/200 Ml IVPB 400 mls/hr Q6HR BUTCH Administration Lactated Ringer's 1,000 mls @ 120 mls/hr 10/03/24 15:02 10/05/24 09:51 Lr - Lactated Ringers Iv IV CONT 120 mls/hr .Q8H20M BUTCH Administration Lidocaine 1 patch 10/04/24 09:00 10/05/24 09:51 Lidocaine 5% Patch TRANSDERM 1 patch DAILY BUTCH Administration [place] Carbonate 600 mg 10/03/24 21:00 10/04/24 21:15 [place] Carbonate 300 Mg Capsule PO 600 mg HS BUTCH Administration [place] Carbonate 300 mg 10/04/24 09:00 10/05/24 09:52 [place] Carbonate 300 Mg Capsule PO 300 mg QAM BUTCH Administration Metoprolol Succinate 25 mg 10/03/24 21:00 10/04/24 21:15 Metoprolol Succinate Ext Rel 25 Mg Tabcr PO 25 mg HS BUTCH Administration Morphine Sulfate 4 mg 10/03/24 15:02 10/03/24 17:22 Morphine Sulfate (*Crx) 4 Mg/Ml Inj IV PUSH 4 mg Q4H PRN Administration Pain Rated 7-10 Ondansetron HCl 4 mg 10/03/24 15:02 10/04/24 09:28 Ondansetron Inj 4 Mg/2 Ml Vial IV PUSH 4 mg Q6H PRN Administration Nausea And Vomiting Oxycodone HCl 5 mg 10/03/24 15:02 10/05/24 02:01 Oxycodone Hcl (*Crx) 5 Mg Tab Ir PO 5 mg Q4H PRN Administration Pain Rated 7-10 Pantoprazole Sodium 40 mg 10/04/24 09:00 10/05/24 09:52 Pantoprazole 40 Mg Tablet PO 40 mg QAM BUTCH Administration Simvastatin 20 mg 10/03/24 21:00 10/04/24 21:15 Simvastatin 20 Mg Tablet PO 20 mg HS BUTCH Administration Venlafaxine HCl 150 mg 10/04/24 09:00 10/05/24 09:52 Venlafaxine Hcl Xr 75 Mg Cap.Er.24h PO 150 mg QAM BUTCH Administration Zolpidem Tartrate 5 mg 10/04/24 13:38 10/04/24 21:15 Zolpidem Tartrate (*Crx) 5 Mg Tablet PO 5 mg HS PRN Administration Insomnia Labs Labs: Laboratory Results - last 24 hr 10/05/24 05:25 WBC 6.9 RBC 3.50 L Hgb 10.1 L Hct 32.3 L MCV 92.3 MCH 28.9 MCHC 31.3 L RDW 12.5 Plt Count 236 MPV 9.5 Immature Gran % (Auto) 0.4 Neut % (Auto) 62.7 Lymph % (Auto) 26.9 [place] % (Auto) 6.9 Eos % (Auto) 2.5 Baso % (Auto) 0.6 Lymph # (Auto) 1.86 [place] # (Auto) 0.5 Eos # (Auto) 0.2 Baso # (Auto) 0.0 Abs Immat Gran (auto) 0.03 Absolute Neuts (auto) 4.3 Absolute Nucleated RBC 0.000 Nucleated RBC % 0.0 Sodium 141 Potassium 3.6 Chloride 107 Carbon Dioxide 28 Anion Gap 6 BUN 7 Creatinine 0.76 Estim Creat Clear Calc 70 Estimated GFR > 60 Glucose 98 Calcium 9.1 Phosphorus 2.7 Magnesium 1.9 Total Bilirubin 0.5 AST 26 ALT 17 Alkaline Phosphatase 65 Total Protein 6.2 L Albumin 3.6
[2024-10-05] MEDS: POTASSIUM CHLORIDE 20 MEQ PACKET (FOR LIQUID) 40 MEQ PO (12:32)
[2024-10-05 14:00] VITALS: BP 110/46; PULSE 70; RESP 20; TEMP 36.7; O2SAT 94
[2024-10-05 21:36] VITALS: PULSE 70
[2024-10-05] MEDS: LITHIUM CARBONATE 300 MG CAPSULE 600 MG PO (21:36)
[2024-10-05] MEDS: SIMVASTATIN 20 MG TABLET PO (21:36)
[2024-10-05] MEDS: METOPROLOL SUCCINATE EXT REL 25 MG TABCR PO (21:36)
--- NOTE | 2024-10-05 21:40 | PC.NURSE ---
Pt. ambulated in hallway with this nurse at side. Pt. walked entire square around unit and tolerated ambulation well. Pt. sitting in chair at this time.
[2024-10-05 21:55] VITALS: BP 159/83; PULSE 75; RESP 16; TEMP 36.4; O2SAT 95
[2024-10-05] MEDS: ZOLPIDEM TARTRATE (*CRX) 5 MG TABLET PO (23:15)
[2024-10-05] MEDS: IBUPROFEN 600 MG TABLET PO (23:18)
[2024-10-06 05:53] LABS: Hematocrit 33.2 % (37.0-47.0); Hemoglobin 10.4 g/dL (12.0-15.0); Mean Corpuscular HGB Conc 31.3 g/dl (32-36); Mean Corpuscular Hemoglobin 28.5 pg (26-34); Mean Platelet Volume 8.8 fl (7.4-10.4); Platelet Count Result 244 k/mm3 (150-375); Red Blood Count 3.65 M/mm3 (4.2-5.4); Red Cell Distribution Width 12.3 % (11.5-14.5); White Blood Count 6.4 K/mm3 (4.5-10.0)
[2024-10-06 06:02] VITALS: BP 173/85; PULSE 63; RESP 17; TEMP 37; O2SAT 96
[2024-10-06 06:06] LABS: Anion Gap 5 mmol/L (4-12); Blood Urea Nitrogen 7 mg/dL (7-17); Calcium 9.4 mg/dL (8.4-10.2); Carbon Dioxide 27 mmol/L (22-30); Chloride 108 mmol/L (98-107); Estimated CRCL calculation 72 ml/min; Estimated Glomerular Filt Rate > 60; Glucose 105 mg/dL (65-110); Potassium 3.7 mmol/L (3.4-5.0); Sodium 140 mmol/L (137-145)
[2024-10-06] MEDS: IBUPROFEN 600 MG TABLET PO ×2 (06:20→12:16)
[2024-10-06] MEDS: HYDROcodone/acetaminophen (*CRX) 5-325 MG TABLET 1 TAB PO (06:22)
[2024-10-06] MEDS: VENLAFAXINE HCL XR 75 MG CAP.ER.24H 150 MG PO (08:40)
[2024-10-06] MEDS: ENOXAPARIN 40 MG/0.4 ML SYRINGE SUB-Q (08:41)
[2024-10-06] MEDS: LIDOCAINE 5% PATCH 1 PATCH TRANSDERM (08:41)
[2024-10-06] MEDS: PANTOPRAZOLE 40 MG TABLET PO (08:41)
[2024-10-06] MEDS: LITHIUM CARBONATE 300 MG CAPSULE PO (08:41)
[2024-10-06] MEDS: CYCLOBENZAPRINE HCL 5 MG TABLET PO (08:41)
--- NOTE | 2024-10-06 11:23 | P.DS_ITS ---
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 The large cecal polyp was near the appendiceal orifice could not be endoscopically removed. Hospital Course: Patient is a 59-year-old female was admitted on 10/03/2024 for elective robotic assisted laparoscopic right hemicolectomy after she was found have a large cecal polyp near the appendiceal orifice which could not be endoscopically removed d uring prior colonoscopy. Surgery was performed by Dr. Alberts. The patient tolerated the procedure well with no complications. She was awakened and taken to recovery in stable condition. The patient had some dark liquid stools but no hematochezia or melena. Mild nausea noted with morphine administration. On postop day 1 patient was doing well, however she was not yet ambulating as much as anticipated. She was encouraged to walk around the room to the bathroom. Ambien was ordered as patient requested a sleep aid. Vital signs and white blood cell count remains stable overnight. Hemoglobin dropped slightly as to be expected with small amount of blood loss during surgery. Clear liquids were tolerated well and she was advanced to full liquids. DVT and GI prophylaxis ordered. Postop day 2 patient was tolerating full liquids well and continued have bowel movements. She was advanced to a soft low-fiber diet. Flexeril for muscle relaxation was added to help with incisional pain. Patient was able to wean off of IV pain medication. Postop day 3 she has continued to improve. No acute events overnight. Tolerating diet well with no nausea, vomiting, dysphagia, regurgitation. Patient is surgically stable for discharge. Status at Discharge Overall status at discharge: patient is back to baseline Time Spent with Patient Time attestation: Total time spent providing and/or coordinating discharge services: Time spent: Less than 30 minutes Exam GI: Inspection: non-distended GI Palp: Yes Soft to palpation Other: Incision sites are clean and dry with no dehiscence, necrosis, or purulence. Lidocaine patch in place. DS: Data Data Completed and Pending Completed studies during hospitalization: Pending at discharge 10/03/24 12:14 Surgical [PTH] Routine Labs on day of discharge: Labs from last 24 hours 10/06/24 05:48 WBC 6.4 RBC 3.65 L Hgb 10.4 L Hct 33.2 L MCV 91.0 MCH 28.5 MCHC 31.3 L RDW 12.3 Plt Count 244 MPV 8.8 Sodium 140 Potassium 3.7 Chloride 108 H Carbon Dioxide 27 Anion Gap 5 BUN 7 Creatinine 0.74 Estim Creat Clear Calc 72 Estimated GFR > 60 Glucose 105 Calcium 9.4 Discharge Plan Discharge Attending physician on discharge: Je Alberts Discharging Clinician: Je Alberts Anticipated Discharge Date/Time: 10/06/24 10:00 Patient Disposition: Home Activity: may shower Diet: regular Wound Care Instructions: other - see discharge instructions Discharge Instructions: Discharge patient home tonight if patient walking in halls and ambulating in the room and going to the bathroom without issues. She needs to be afebrile and incisions appear need to be dry and intact. Pain he has to be controlled only with oral nonnarcotic or oral narcotic pain medications. May shower when patient gets home.. No soaking incision under water x2 weeks. Protect surgical site from any trauma. Follow up in the office with Dr. Alberts in 2 weeks - 10/18/24 9:45 a.m. Call [phone] for an appointment. Resume home medications and any prescriptions for postoperative narcotic medication will be sent to the patient's pharmacy. If taking any blood thinners, okay to resume blood thinners in 24hours. No driving for 7 days or until no longer taking any narcotic pain medications. May use Tylenol and/or ibuprofen in addition to or in place of narcotic pain meds. No lifting more than 5 to 10 lb for the next 4 to 6 weeks. Patient Instructions: Antibiotic Form Patient Language: Cambodian Stand Alone Forms: General Discharge Information Follow-up/Referrals: Je Alberts MD [Physician] - (Follow-up to see Dr. Alberts in the office in 2 weeks. Call office for an appointment.) Discharge Medications: New oxycodone [RoxyBond] 5 mg tablet, oral only 5 mg PO Q6H PRN (Reason: pain) Qty: 15 0RF Rx Instructions: Okay to substitute with generic equivalent oral medication. cyclobenzaprine 5 mg tablet 5 mg PO BID PRN (Reason: muscle spasm) Qty: 14 0RF Continued lithium carbonate 300 mg capsule 300 mg PO BID Rx Instructions: 300MG IN AM, 600MG HS; clonazepam 0.5 mg tablet 0.5 mg PO Q12H PRN (Reason: anxiety) fluticasone propionate 50 mcg/actuation spray,suspension 1 spray INTRANASAL Q12H PRN (Reason: nasal congestion) venlafaxine 150 mg capsule,extended release 24hr 150 mg PO QAM turmeric 400 mg capsule 800 mg PO DAILY imowzzwv-lpten-tnm 149-hyal ac 750 mg-100 mg- 125 mg-1.65 mg tablet 2 tablet PO HS ibuprofen 200 mg capsule 600 mg PO HS PRN (Reason: pain) simvastatin 20 mg tablet See Rx Instructions .ROUTE .COMPLEX Qty: 90 3RF Dose Instruction: TAKE 1 TABLET BY MOUTH EVERY DAY Patient Comments: HS Rx Instructions: TAKE 1 TABLET BY MOUTH EVERY DAY metoprolol succinate 25 mg tablet extended release 24 hr 25 mg PO DAILY Qty: 90 1RF Patient Comments: HS Discontinued ciprofloxacin HCl 500 mg tablet 500 mg PO .COMPLEX Qty: 1 0RF Patient Comments: TAKE DAY BEFORE SURGERY DIRECTED Rx Instructions: 500 mg orally at 2:00pm; Date of admission: 10/03/24 15:34 Primary Care Provider: Indira Ordoñez Admitting Provider: Je Alberts Attending physician on admission: Je Alberts Condition: Improved
--- OUTSIDE RECORDS SUMMARY | 2024-10-18 06:36 | XMS_ITS | Continuity of Care Document ---
Author Organization [facility] Address [address] [place] [address] Phone Care Team Providers Care Check Weigher Name Role Phone Stack Axel VENTURA Unavailable [...] X-ray exam knee, 4+ views Office/outpatient visit,new, [facility] [place] 2020 Advance Directives Directive Yes / No Effective Date File Name No Information Encounters Encounter Description Practice Location Reason(s) For Visit Diagnoses Date Provider Providers Copied on Encounter Office/outpat ient visit,est, mod [facility], [address] [address], [place], [place], [id number], [place] tel:[phone] [facility] bilat knees (chief complaint) Pain in left kneePain in right kneeBilateral primary osteoarthritis of knee 2 Stack Axel. [address] [address], [place], [place], [address] , [place]. tel: [phone] [facility], [address], [id number], [place] tel:[phone] [facility] Bilateral knees (chief complaint) Pain in left kneePain in right kneeBilateral primary osteoarthritis of knee 2 Stack Axel. [address] [facility] [address], [place], [place], [id number] , [place]. tel: [phone] [facility], [address], [place], [place], [address], [place] tel:[phone] [facility] Bilateral knees (chief complaint) Bilateral primary osteoarthritis of kneePain in right kneePain in left knee 2 Stack Axel. [address], [place], [place], [address] , [place]. tel: [phone] [facility] [employer], [address] [address], [place], [place], [address], [place] tel:[phone] [facility] bilateral knees (chief complaint) Pain in right kneePain in left kneeBilateral primary osteoarthritis of knee 1 Stack Axel. [address], [address], [id number] , [place]. tel: [phone] Office/outpat ient visit,est, [facility], [address] [facility], [place], [place], [address], [place] tel:[phone] [facility] [employer] Bilat knees (chief complaint) Pain in right kneePain in left kneeBilateral primary osteoarthritis of knee 1 Stackjose Reyna. [address] [facility], [place], [place], [address] , [place]. tel:[phone] Office/outpat ient visit,new, [facility] [place] [facility], [address] [facility] [address], [place], [place], [address], [place] tel:[phone] [facility] [employer] left knee (chief complaint) Pain in left kneeUnilateral primary osteoarthritis, left knee 1 Lisa akers. [address] [facility], [place], [place], [address] , [place]. tel:[phone] Referring Provider: Kwadwo Dumont [address], [place], [address] . tel:[phone] Family History Family Member Type Diagnosis Age At Onset No Information Payers Payer name Insurance type Covered democrat ID Analia lemons(s) Belinda Patel [facility] [id number] Social History Type Description Quantity Date [...] discharged in stable condition. Dictation completed with Page[employer] software, grammatical variances in spelling errors may [...] discharged in stable condition. Dictation completed with [employer] software, grammatical variances in spelling errors may [...] discharged in stable condition. Dictation completed with [employer] Practice Edition software, grammatical variances in spelling [...]
--- OUTSIDE RECORDS SUMMARY | 2024-10-18 06:36 | XMS_ITS | Data Portability ---
Author Organization [facility] [place] Address [address] [place] [address] Assessment No assessment recorded. Plan of Treatment Reminders Order Date Submit Date Provider Last Modified By Organization Details Last Modified Time Details Appointments None recorded. Lab None recorded. Referral None recorded. Procedures None recorded. Surgeries None recorded. Imaging US, pelvis [email or web address], [address], [place], [address], 23:20:48 US, transvagina l 2021 022 [email or web address] [place], [address], [place], [address], 23:20:48 US, pelvis, complete 2021 022 [email or web address] [place], [address], [place], [address], 10:41:25 Medication Orders None recorded. Patient TargetsNo [...] Repor t Case: [id number] Autho rizin g Provi anisha: Jimi barney , Lorrie Ennis cted: 10/22 1651 TREASURY SPECIALIST Order ing Locat ion: [place] Patho log[facility]ely Recei telma: 10/23 0727 First Christiano n: Shannon saunders, [place] Speci men: Christiano castro Pap - [...] (NIL) . Atrop hic imtiaz duval rn. Koki arroyo ashlie d by Shannon saunders, [place] [...] is recom pj d, as clini mark madden nted. Not Available [facility] [address] [place], [address], 10/28/2021 09:03:34 10/23/19 22 10/22/2021 TRICH OMONA S VAGIN ROE (RRNA ) trichomonas vaginalis ribosomal RNA (rrna) Negati ve negati ve Not Available [facility] [address] [place], [address], 10/28/2021 09:03:35 10/23/19 22 10/22/2021 CT/GC (FRANSISCA) , THINP REP VIAL chlamydia trachomatis, PCR Negati ve negati ve Not Available [facility] [address] [place], [address], 10/28/2021 09:03:35 10/23/19 22 10/22/2021 CT/GC (FRANSISCA) , THINP REP VIAL neisseria gonorrhoeae, PCR Negati ve negati ve Not Available [facility] [address] [place], [address], 10/28/2021 09:03:35 11/12/19 22 11/11/2021 US, pelvi s No observ ation record ed. [email or web address] [place] [address], [place], [address], 11/11/2021 12:59:22 11/12/19 22 11/11/2021 US, trans vagin al No observ ation record ed. [email or web address] [place] [address], [place], [address], 11/11/2021 12:59:31 11/12/19 22 11/11/2021 US, pelvi s No observ ation record ed. CHALINO Mar[address], [place], [address], 11/12/2021 11:15:11 Result Notes None recorded. Procedures Surgical History Date Name Laterality Status Provider Name and Address Organization Details Recorded Time 2 Date of Last Mammogram completed [facility] 10/22/2021 16:22:56 4 section completed [facility] 10/22/2021 16:25:20 Imaging Results None recorded. [...] mm[Hg] 142 mm[Hg] 84 mm[Hg] Valeria Keller, SHE[facility]- [address], [place], [address], [place] - [facility] 2 16:40:42 Date Recorded Body height Body mass index (BMI) Body weight Provider Name and Address Organization Details Last Updated DateTime 10/22/2021 152.4 cm 47.4 kg/m2 835874.23 g Carolina Sabillon [facility] 10/22/2021 16:19:22 Social History Question Answer Notes LastModified by [employer] ion Details LastModified Time Tobacco Smoking Status Current Every Day Smoker Carolina Sabillon [facility], [facility] 10/22/2021 16:24:57 Are You Blind Or [...] Functional Status Question Answer Note LastModified by [employer] ion Details LastModified Time Do you use any [...] anxious, or unable to sleep at night)? [id number] Information not available 10/22/2021 Family History Relationship [...] SNOMED-CT Code Diagnosis ICD10 Code Diagnosis Note [id number] Soumya Keller , [facility] [address] [address] 10/22/2021 15:27:17 10/22/2021 17:02:33 Pain in pelvis 34634347 R10.2 This patient is a 54 -year-old [...] is more of a GI issue vs ASSESSMENT DIRECTOR issue.Will await updated US result & decide if referral to PCP/GI is required. Gynecologi c examination [id number] Z01.419 Take Calcium with Vitamin D 12-1500mg daily. Do monthly self breast exams. It is advised to get annual flu shot in the fall and she could obtain at [facility] or [facility] care clinic. If you haven't received the [...] UTD PCP Routine Labs UTD PCPMammo ordered [id number] Diego Jung MD [place] [address] [address] 11/11/2021 11:59:14 11/11/2021 12:43:02 Pain in pelvis 21513615 R10.2 Health Concerns Section Related Observation LastModified by Organization Detai ls LastModified Time None Recorded Concern Status LastModified by Organization Details LastModified Time None Recorded Advance Directives Directive None Recorded Payers Insurance Date Sequence Insurance Name Policy Number Policy Wiggins Covered Member ID Wiggins Member ID Guarantor Name 11/08/2021 1 [place] [id number] 3 Malgorzata Maher [id number] Malgorzata Maher Notes Date Note Type Note Provider Name and Address Organization Details Recorded Time 2 text/html Annual Information Technology Specialist Post-MenopausalReporte d bypatient.Menopausal Symptoms:no menopausal symptoms; normal [...] urge incontinence;abdominal pain(Lower abd/pelvic area cramping.);diarrhea Soumya Keller SHE[facility]- [address], [place], [address], [facility] 10/22/2021 16:47:39 OBGyn Episode Ob Episode Information Episode Created Date Number of Fetuses Patient Bloodtype Patient rh Status Prepregnancy Weight lbs Domestic Partner Domestic Partner Phone Father Name Saw Tailer Status 10/23/19 22 1 CLOSED Fetus Data First Name Last Name Admitted to NICU Weight (g) Sex Living Outcome Pediatric Complications Fetus ID Race Codes Race Delivery Type M [id number] Vaginal Delivery Osmar Calculation Initial Osmar Date [...] Domestic Partner Domestic Partner Phone Father Name Saw Tailer Status 10/23/19 22 1 CLOSED Fetus Data First Name Last Name Admitted to NICU Weight (g) Sex Living Outcome Pediatric Complications Fetus ID Race Codes Race Delivery Type M [id number] Primary Osmar Calculation Initial Osmar Date Initial [...]
--- OUTSIDE RECORDS SUMMARY | 2024-10-18 06:36 | XMS_ITS | Clinical Summary ---
Author Organization [facility] Address [address] [place] [address] Care Team Providers Care Corporate Coordinator Name Role Phone Indira Ordoñez MD Primary Care Provider [phone] Allergies No known active allergies Medications simvastatin [...] simethicone-dip henhydramine-li docaine-nystati n (MAGIC MOUTHWASH) suspension 3-1-4-1Indicati ons:Thrush Swish and swallow 10 mL every [...] Encounters Date Type Department Care Team Description 10/05/2024 Orders Only [facility] MOVEMENT Scanning, Provider 10/05/2024 Telephone [facility] [address] [facility] [address] [place] [address] Carlos A Rizo MD 09/29/2024 12:00 PM CDT Office Visit [facility] [address] 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
--- OUTSIDE RECORDS SUMMARY | 2024-10-18 06:36 | XMS_ITS | Continuity of Care Document ---
Author Organization [facility] Address [address] [place] [address] [place] [address] Phone Care Team Providers Care Textile Artist Name Role Phone Elpidio Lu Unavailable Unavailable Procedures Procedure Date Eye Exam & Treatment Refraction Office/outpatient Visit, Est Advance Directives Directive Yes / No Effective Date File Name No Information Encounters Encounter Description Practice Location Reason(s) For Visit Diagnoses Date Provider Providers Copied on Encounter [facility], [address] [place] [address] [address], [place], [place], [address], tel:[phone] [facility] No Information 0 Tabitha Magallanes. [address], [place], [place], [facility], . tel:[phone] Office/outpat ient Visit, Est [facility], [address] [place] [address] [address], [place], [place], [address], tel:[phone] [facility] No Information 0 Tabitha Magallanes. [address] , [address], [place], [address], [place]. tel:[phone] Family History Family Member Type Diagnosis Age At Onset No Information Payers Payer name Insurance type Covered republican ID Authorkena luigiadán(s) [employer] Vision Plan CI [id number] Social History Type Description Quantity Date Captured [...]
--- OUTSIDE RECORDS SUMMARY | 2024-10-18 06:36 | XMS_ITS | Clinical Summary ---
Author Organization [facility] Address [address] [place] [address] Care Team Providers Care Garnett Mechanic Name Role Phone Unavailable Primary Care Provider [...]
--- OUTSIDE RECORDS SUMMARY | 2024-10-18 06:36 | XMS_ITS | Referral Summary ---
Author Organization [facility] 40 Address [address] [facility] [place] [address] Care Team Providers Care Health Education Coordinator Name Role Phone Indira Ordoñez MD Primary Care Provider [phone] Encounters Date Type Department Care Team Description 10/05/[address] [facility] MOVEMENT Scanning, Provider 10/05/2024 Telephone [facility] [address] [facility] [address] [place] [address] Carlos A Rizo MD 09/29/2024 12:00 PM CDT Office Visit [facility] [address] [facility] [address] [place] [address] Carlos A Rizo MD GRZEGORZ (obstructive sleep [...] simethicone-dip henhydramine-li docaine-nystati n (MAGIC MOUTHWASH) suspension 0-2-9-1Indicati ons:Thrush Swish and swallow 10 mL every 4 (four) hours as needed (throat) 100 mL 03/10/20 025 Discontinued predniSONE (DELTASONE) 10 mg tablet PLEASE SEE ATTACHED FOR DETAILED DIRECTIONS 06/07/19 025 Discontinued cefadroxil (DURICEF) 500 mg capsule TAKE 1 CAPSULE BY MOUTH TWICE A DAY X10 DAYS 06/07/19 25 025 Discontinued Active Problems Problem Noted Date [...] on file Legal 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 Gender Identity Female 11/09/2019 8:55 AM CDT Sexual Orientation Straight 11/09/2019 8: 55 AM CDT 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 Not on file Not on file Last Filed Vital Signs Vital Sign Reading Time Taken Comments Blood Pressure 143/85 09/29/2024 11:39 AM CDT Pulse 64 09/29/2024 11:39 AM CDT Temperature 37.3 C (99.2 F) 09/29/2024 11:39 AM CDT Respiratory Rate 24 06/13/2024 12:38 PM ADMISSIONS CLERK Oxygen Saturation 98% 09/29/2024 11:39 AM CDT Inhaled Oxygen Concentration - - Weight 102.5 kg (226 lb) 09/29/2024 11:39 AM CDT Height 152.4 cm (5') 09/29/2024 11:39 AM CDT Body Mass Index 44.14 09/29/2024 11:39 AM CDT Plan of Treatment Not on file Procedures Procedure Name Priority Date/Time Associated Diagnosis Comments SLEEP LAB/STUDY - RESULT 10/05/2024 4:59 PM CDT from Last 3 Months Results * SLEEP LAB/STUDY - RESULT (10/05/2024 4:59 PM CDT) Provider Scanning Final Result from Last 3 Months Insurance [facility] ACCESS CHOICE ANTHEM ACCESS CHOICE Care Teams Health Education Coordinator Relationship Specialty Start Date End Date Indira Ordoñez MD PCP - General 07/04/19
== END 2024-10-06 13:40 | disposition home or self-care (01) | DRG 330 ==
LOC: ANHSURGERY 15:37 → ANH3MEDSUR 10-05 12:32
PROVIDERS: Admitting Provider Surgery; PCP Family Medicine
PROC: 0DTF4ZZ Resection of Right Large Intestine, Percutaneous Endoscopic Approach (ICD-10-PCS; principal; 2024-10-03 07:30)
DX: D12.0 Benign neoplasm of cecum (principal); Z68.41 Body mass index [BMI] 40.0-44.9, adult; I10 Essential (primary) hypertension; E78.5 Hyperlipidemia, unspecified; F41.8 Other specified anxiety disorders; F31.9 Bipolar disorder, unspecified; G47.30 Sleep apnea, unspecified; E66.01 Morbid (severe) obesity due to excess calories; Z87.891 Personal history of nicotine dependence
CPT/HCPCS: 36415; 80048; 80053; 83735; 84100; 85025; 85027; 88307; A9270; J0690; J1100; J1171; J1650; J1741; J1836; J1885; J2004; J2250; J2270; J2405; J2704; J3010; J7030; J7120

== ENCOUNTER 2025-02-20 17:08 | Emergency (ER) | payer OTHER, SELFPAY ==
[2025-02-20 17:21] VITALS: BP 156/91; PULSE 84; RESP 16; TEMP 36.6; O2SAT 99
[2025-02-20 17:46] LABS: EDSTREPNEGPOS1 Negative (Negative); EDUAAPPEAR Clear; EDUABILI Negative (Negative); EDUABLOOD Negative (Negative); EDUACOLOR1 Yellow; EDUAGLUCOSE Negative (Negative); EDUAKETONE Negative (Negative); EDUALEUKO 1+ (Negative); EDUANITRATE Negative (Negative); EDUAPH 7.0; EDUAPROTEIN Negative (Negative); EDUASPGRAVITY 1.015; EDUAUROBILI 0.2
--- NOTE | 2025-02-20 17:54 | ED_ITS ---
HPI - General Adult General Chief complaint: Urogenital-Female Stated complaint: Chills/Bodyaches/Uti Symptoms Time Seen by Provider: 02/20/25 17:42 Source: patient and RN notes reviewed Mode of arrival: ambulatory Limitations: no limitations History of Present Illness HPI narrative: 59-year-old female patient presents today with a 2 month history of sore throat, body aches, bilateral ear ringing, fatigue. States symptoms have been intermittent in nature. Denies fever or shortness of breath. She has tried NyQuil 1 time without improvement as long as a few doses of Advil without relief. She currently rates her pain 11/27. She is also complaining of some slight dysuria that started today. Related Data Home Medications ?Medication ?Instructions ?Recorded ?Confirmed ?Last Taken ?Type clonazepam 0.5 mg tablet 0.5 mg PO Q12H PRN anxiety 0 09/27/24 02/20/25 Unknown History Allergies Allergy/AdvReac Type Severity Reaction Status Date / Time No Known Allergies Allergy Verified 02/20/25 17:15 [facility] Past Medical History Medical History Hypertension Anxiety and depression Sleep apnea HLD (hyperlipidemia) Bipolar 1 disorder Surgical History Surgical History Hx of right hemicolectomy 10/04/24 Robotic assisted laparoscopic right hemicolectomy with uins-ng-cbhg stapled ileocolic anastomosis Dr. Alberts H/O: section Family History Family History Mother CHF (congestive heart failure) Sibling Hx of artificial heart valve replacement Pacemaker Social History Social History Smoking packs per day: 0.5 Smoking cigarettes per day: 10.0 Years smoked: 22 Smoking pack-years: 11.00 Smoking status: Former smoker Second hand tobacco smoke exposure: Yes Alcohol intake: never Substance use: never Substance use type: does not use Do You Feel Safe in your Home?: Yes Lack of Transportation: No Lack of Food: Sometimes True Current Housing: I Have Housing Concerned About Future Housing: Decline to Answer Difficulty Paying Gas/Electric Bills: YES Difficulty Paying for Meds: Decline to Answer Currently Unemployed: YES Education: Bachelor's Degree Difficulty w/ Childcare or Family Care: No Living arrangements: alone Occupation/Education: occupation Gender identity (if verbalized by the patient): Female Spiritual care concerns: No Comments At time of signature, I have reviewed and agree with nursing past medical, surgical, social and family history unless otherwise noted. Please see nursing chart for further information. There is no relevant family history pertinent to the presenting complaint Exam Narrative: GENERAL: Well-appearing, well-nourished, and in no acute distress. HEAD: Normocephalic, atraumatic. EYES: EOMI. No redness or drainage. Conjunctivae normal. ENT: Mucous membranes pink and moist. Nares clear. No rhinorrhea. TMs normal bilaterally. Throat normal. Uvula midline. NECK: Normal AROM. Supple. No lymphadenopathy. CHEST: No respiratory distress. Clear to auscultation. HEART: Regular rate and rhythm. No murmur appreciated. ABDOMEN: Soft, nontender, nondistended, normal active bowel sounds. EXTREMITIES: Normal range of motion. No edema. SKIN: Warm, dry, no rash. Capillary refill normal. Normal skin turgor. NEURO: No focal deficits. Alert and oriented x3. Gait steady. PSYCH: Normal affect. No signs of depression or anxiety. Course Course Level of Care: Express Care Visit Vital Signs Vital signs: Vital Signs Temperature 97.9 F 02/20/25 17:21 Pulse Rate 84 02/20/25 17:21 Respiratory Rate 16 02/20/25 17:21 Blood Pressure 156/91 H 02/20/25 17:21 Pulse Oximetry 99 02/20/25 17:21 Temperature 97.9 F 02/20/25 17:21 Pulse Rate 84 02/20/25 17:21 Respiratory Rate 16 02/20/25 17:21 Blood Pressure 156/91 H 02/20/25 17:21 Pulse Oximetry 99 02/20/25 17:21 Reviewed Medical Decision Making MDM Narrative Medical decision making narrative: 59-year-old female patient presents today with a 2 month history of sore throat, body aches, bilateral ear ringing, fatigue. States symptoms have been intermittent in nature. Denies fever or shortness of breath. She has tried N yQuil 1 time without improvement as long as a few doses of Advil without relief. She currently rates her pain 8/10. She is also complaining of some slight dysuria that started today. Patient has a negative exam. Rapid strep negative. Urinalysis shows 1+ leukocytes. Culture pending. Based on patient's complaint, will hold off treating for UTI until culture comes back. Patient's main complaint today is her fatigue. She is disappointed that she will not be receiving antibiotics her fatigue today. Had long discussion with her regarding why antibiotics are not being prescribed. Recommend she follow up with her PCP regarding her persistent symptoms. Vital signs stable with mildly elevated BP. Anticipatory guidance given. Differential Diagnosis Differential Diagnosis: Strep throat, pharyngitis, UTI, viral syndrome, anemia, thyroid issue, otitis media Vital Signs Vital Signs: Vital Signs Temperature 97.9 F 02/20/25 17:21 Pulse Rate 84 02/20/25 17:21 Respiratory Rate 16 02/20/25 17:21 Blood Pressure 156/91 H 02/20/25 17:21 Pulse Oximetry 99 02/20/25 17:21 Temperature 97.9 F 02/20/25 17:21 Pulse Rate 84 02/20/25 17:21 Respiratory Rate 16 02/20/25 17:21 Blood Pressure 156/91 H 02/20/25 17:21 Pulse Oximetry 99 02/20/25 17:21 Lab Data Labs: Lab Results 02/20/25 Range/Units 17:44 POC Urine Color Yellow POC Urine Clarity Clear POC Urine pH 7.0 POC Ur Specif [place] 1.015 POC Urine Protein Negative (Negative) POC Ur Glucose (UA) Negative (Negative) POC Urine Ketones Negative (Negative) POC Urine Blood Negative (Negative) POC Urine Nitrite Negative (Negative) POC Urine Bilirubin Negative (Negative) POC Urine Urobilinogen 0.2 POC U Leukocyte Esteras 1+ (Negative) POC Grp A Strep Screen Negative (Negative) Critical Care Time Critical Care Time Critical Care Time: No Discharge Plan Discharge Clinical Impression: Sore throat, chronic Fatigue Qualifiers: Fatigue type: unspecified Qualified Code(s): R53.83 - Other fatigue Patient Disposition: Home Condition: Stable Instructions: Fatigue (ED) Additional Instructions: Your rapid strep screen is negative today. You will be notified in a few days if your strep culture comes back positive. Urinalysis is not consistent with UTI at this time. Your urine will be sent to the hospital for urine culture and you will be notified of any positive results. Please follow-up with your PCP regarding your ongoing fatigue and body aches symptoms. Patient Language: Swedish Prescriptions: No Action nystatin 100,000 unit/gram powder 1 applic topical BID Qty: 30 1RF Patient Comments: not taking fluticasone propionate 50 mcg/actuation spray,suspension 1 spray INTRANASAL Q12H PRN (Reason: nasal congestion) Qty: 16 0RF clonazepam 0.5 mg tablet 0.5 mg PO Q12H PRN (Reason: anxiety) metoprolol succinate 25 mg tablet extended release 24 hr 25 mg PO DAILY Qty: 90 1RF Patient Comments: HS simvastatin 20 mg tablet See Rx Instructions .ROUTE .COMPLEX Qty: 90 3RF Dose Instruction: TAKE 1 TABLET BY MOUTH EVERY DAY Patient Comments: HS Rx Instructions: TAKE 1 TABLET BY MOUTH EVERY DAY Follow-up/Referrals: Indira Ordoñez MD [Primary Care Provider, Family Practice] Time of Disposition: 17:59
== END 2025-02-20 18:01 | disposition home or self-care (01) ==
PROVIDERS: Emergency Provider Nurse Practitioner; PCP Family Medicine
DX: J31.2 Chronic pharyngitis (principal); R53.83 Other fatigue; Z87.891 Personal history of nicotine dependence; I10 Essential (primary) hypertension; E78.5 Hyperlipidemia, unspecified; F41.9 Anxiety disorder, unspecified
CPT/HCPCS: 81003; 87081; 87086; 87880; 99213; G0463

== ENCOUNTER 2025-03-09 19:02 | Emergency (ER) | payer OTHER, SELFPAY ==
--- NOTE | 2025-03-09 20:26 | PC.NURSE ---
No answer when called.
--- OUTSIDE RECORDS SUMMARY | 2025-03-09 23:26 | XMS_ITS | Clinical Summary ---
Author Organization [facility] Address [address] [place] [address] Care Team Providers Care Culinary Chef Name Role Phone Unavailable Primary Care Provider [...] of 2) 2013 COVID-19 Vaccine ( - 2024-2 6 season) 2024 Influenza Adult (#1) 2025 RSV Immunization or 60+ Years (1 - 1-dose 75+ series) 2038 Hepatitis A Vaccines Aged Out No long er eligible based on patient's age to complete this topic Meningococcal B Vaccine Aged Out No l onger eligible based on patient's age to complete this topic Meningococcal Vaccine Aged Out No tae kinsey eligible based on patient's age to complete this topic RSV Immunizations Under 20 Months Aged Out No longer eligible based on patient's age to complete this topic
--- OUTSIDE RECORDS SUMMARY | 2025-03-09 23:26 | XMS_ITS | Patient Health Record ---
Author Organization [facility] [employer] Address [address] [place] [address] Care Team Providers Care Automotive Manufacturer Name Role Phone Anitra Correa Unavailable [phone] Reason For Referral No Information Medications Medication SIG (Take, Route, Frequency, Duration) Notes Start Date End Date Status Martha Carbonate ER 450 MG Tablet Extended Release Oral 06/13/2021 Acti ve Metoprolol Succinate ER 25 MG Tablet Extended Release 24 Hour Oral 06/13/2021 Active Simvastatin 20 MG Tablet Oral 06/13/2021 Active Venlafaxine HCl ER 75 MG Capsule Extended Release 24 Hour Oral 06/13/2021 Active Naproxen 500 MG Tablet Oral 06/13/2021 Active busPIRone HCl 5 MG Tablet Oral 06/13/2021 Active Venlafaxine HCl ER 150 MG Capsule Extended Release 24 Hour Oral 06/13/2021 Active predniSONE 10 MG Tablet Oral 06/13/2021 Active ARIPiprazole 15 MG Tablet Oral 06/13/2021 Active Abilify 15 MG Tablet Oral 06/13/2021 Active Immunizations Vaccine Route Administration Date Status Comme nts Tdap Unknown 09/06/2015 Administered Tdap Unknown 06/06/2022 Administered Novel [id number], preservative free Unknown 05/01/2019 Administered Moderna Covid-19 Vaccine 1st dose Unknown 06/02/2020 Ad ministered Moderna Covid-19 Vaccine 1st dose Unknown 06/30/2020 Ad ministered Influenza, unspecified formulation Unknown 06/06/2022 A dministered Influenza, seasonal, injecta ble, preservative free, 3 yrs and above Unknown 03/11/2013 Administered Influenza virus vaccine, quadrivalent (IIV4), split virus, 0.25 mL dosage Unknown 02/18/2015 Administered Social History Social History Additional Details Category Social Info Options Details Migrated Social History Migrated Social History Alcohol Intake: Occasional 04/19/2020,Tobacco Years: Current every day smoker 04/19/2020,Smoking Status: 20 06/13/2021 Plan Of Treatment No Information Insurance Providers Payer Name Payer Address Payer Phone Subscriber Number Group Number Insured Name Patient Relationship to Insured Coverage Start Date Coverage End Date [facility] [address] [place] [address] [id number] KIRSTEN BARBOUR Self - patient is the insured Medical (General) History Surgical History Surgery Date(Month/Year) section (32791425) Ligation of fallopian tube (34141116) Remove cranial cavity fluid (26440)
--- OUTSIDE RECORDS SUMMARY | 2025-03-09 23:26 | XMS_ITS | Clinical Summary ---
Author Organization [facility] Address [address] [place] [address] Care Team Providers Care Supervisor Backfilling Name Role Phone Indira Ordoñez MD Primary Care Provider [phone] Allergies No known active allergies Medications simvastatin (ZOCOR) 20 mg tablet Take 1 tablet (20 mg total) by mouth daily 0 9 Active LITHIUM 300 mg capsule TAKE 1 CAPSULE EVERY MORNING AND 2 CAPSULES AT BEDTIME. 2 8 Active fluticasone propionate (FLONASE) 50 mcg/actuation nasal spray SPRAY 1 SPRAY INTO EACH NOSTRIL TWICE A DAY 3 Active metoprolol XL (TOPROL-XL) 25 mg extended release tablet Take 1 tablet (25 mg total) by mouth daily 2 Active clonazePAM (KlonoPIN) 0.5 mg tablet TAKE 0.5 OR 1 OR 2 TABLETS NEEDED FOR SEVERE ANXIETY UP TO TWO TIMES PER DAY 3 Active promethazine-DM (PROMETHAZINE-DM ) 1.25-3 mg/mL syrupIndications :Cough, unspecified type Take 5 mL by mouth every 4 (four) hours as needed for cough 120 mL 3 Active venlafaxine XR (EFFEXOR-XR) 150 mg 24 hr capsule Take 1 capsule (150 mg total) by mouth daily 5 Active fluticasone propionate (FLONASE) 50 mcg/actuation [...] on file 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
--- OUTSIDE RECORDS SUMMARY | 2025-03-09 23:26 | XMS_ITS | Data Portability ---
Author Organization [facility] [place] Address [address] [place] [address] [place] [address] Assessment No assessment recorded. Plan of Treatment Reminders Order Date Submit Date Provider Last Modified By Organization Details Last Modified Time Details Appointments None recorded. Lab None recorded. Referral None recorded. Procedures None recorded. Surgeries None recorded. Imaging US, pelvis [email or web address], [address], [place], [address], 23:20:48 US, transvagina l 2021 022 [email or web address] [place], [address], [place], [address], 23:20:48 US, pelvis, complete 2021 022 [email or web address] [place], [address], [place], [address], 10:41:25 Medication Orders None recorded. 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 Not Available [facility] - [facility] Weekend [address] [place], [address], 10/28/2021 09:03:34 10/23/19 22 10/22/2021 TRICH OMONA S VAGIN ROE (RRNA ) trichomonas vaginalis ribosomal RNA (rrna) Negati ve negati ve Not Available [facility] - [facility] [address]end [address] [place], [address], 10/28/2021 09:03:35 10/23/19 22 10/22/2021 CT/GC (FRANSISCA) , THINP REP VIAL chlamydia trachomatis, PCR Negati ve negati ve Not Available [facility] - [address]end [address] [place], [address], 10/28/2021 09:03:35 10/23/19 22 10/22/2021 CT/GC (FRANSISCA) , THINP REP VIAL neisseria gonorrhoeae, PCR Negati ve negati ve Not Available [facility] - Stat Weekend [address] [place], [address], 10/28/2021 09:03:35 11/12/19 22 11/11/2021 US, pelvi s No observ ation record ed. [email or web address] [place] [address], [place], [address], 11/11/2021 12:59:22 11/12/19 22 11/11/2021 US, trans vagin al No observ ation record ed. [email or web address] [place] [address], [place], [address], 11/11/2021 12:59:31 11/12/19 22 11/11/2021 US, pelvi s No observ ation record ed. CHALINO Peña [address], [place], [address], 11/12/2021 11:15:11 Result Notes None recorded. Procedures Surgical History Date Name Laterality Status Provider Name and Address Organization Details Recorded Time 2 Date of Last Mammogram completed [facility] 10/22/2021 16:22:56 4 section completed [facility] 10/22/2021 16:25:20 Imaging Results None [...] Not Avai lable Vitals Date Recorded Systolic And Diastolic Systolic And Diastolic Provider Name and Address Organization Details Last Updated DateTime 10/22/2021 160/88 mm[Hg] 142/84 mm[Hg] Soumya Keller, [facility]- [address], [place], [address], [place] - [facility] 10/22/2021 16:40:42 Date Recorded Body height Body mass index (BMI) Body weight Provider Name and Address Organization Details Last Updated DateTime 10/22/2021 152.4 cm 47.4 kg/m2 615716.23 g Carolina Sabillon [facility] 10/22/2021 16:19:22 Social History Question Answer Notes LastModified by [employer] Details LastModified Time Tobacco Smoking Status Current Every Day Smoker Carolina Sabillon [facility] 10/22/2021 16:24:57 Are You Blind Or [...] Organizat ion Details LastModified Time Do you use any illicit or recreational drugs? No Information not available 10/22/2021 What is your level of alcohol consumption? Occasional Information not available 10/22/2021 Are you able to walk independently without assistance or assistive devices? YESWOREST Information not available 10/22/2021 Are you able to care for yourself independently? Yes Information not available 10/22/2021 Do you have difficulty dressing, bathing, grooming, or toileting? No Information not available 10/22/2021 What is your exercise level? Moderate Information not available 10/22/2021 Mental Status Question Answer Note LastModified by Organization D etails LastModified Time Do you feel stressed (tense, restless, nervous, or anxious, or unable to sleep at night)? [id number] Information not available 10/22/2021 Family History Relationship [...] Diagnosis SNOMED-CT Code Diagnosis ICD10 Code Diagnosis IMO Codes Diagnosis Note [id number] Soumya Keller , [facility] [address] [address] 10/22/2021 15:27:17 10/22/2021 17:02:33 Pain in pelvis 99109326 R10.2 This patient is a 54 -year-old [...] is more of a GI issue vs HIGH RIGGER issue.Will await updated US result & decide if referral to PCP/GI is required. Gynecologi c examination [id number] Z01.419 Take Calcium with Vitamin D 12-1500mg daily. Do monthly self breast exams. It is advised to get annual flu shot in the fall and she could obtain at [facility] or [facility] clinic. If you haven't received the Tdap [...] UTD PCP Routine Labs UTD PCPMammo ordered [id number] Diego Jung MD [place] [address] [address] 11/11/2021 11:59:14 11/11/2021 12:43:02 Pain in pelvis 46621314 R10.2 Health Concerns Section Related Observation LastModified by Organization Detai ls LastModified Time None Recorded Concern Status LastModified by Organization Details LastModified Time None Recorded Advance Directives Directive None Recorded Payers Insurance Date Sequence Insurance Name Policy Number Policy Wiggins Covered Member ID Wiggins Member ID Guarantor Name 11/08/2021 1 [place] [id number] 3 Malgorzata Maher [id number] Malgorzata Maher Notes Date Note Type Note Provider Name and Address Organization Details Recorded Time 2 text/html Pelvic Pain/PressureReported by PatientHPIFor associated symptoms, patient reportsabdominal pain (lower abd/pelvic area cramping.)anddiarrheabut reportsno back pain,no chills,no constipation,no dribbling,no pain with urination,normal emptying of bladder,no blood in semen,no blood in the urine,no hesitancy,normal libido,no nausea,no vomiting,no nocturia,no urine odor,no straining,no incontinence,no fever,no feelings of urgency, andno urge incontinence. For location, patient reportsbilateral. For quality, patient reportsintermittent (cramping type feeling random.unable to connect it with any activity/food/drink/stres s.will last upwards of 30mins to a few hours.still able to function but feels these episodes are lasting longer.doesn't use anything for pain regarding this issue.has not went to her pcp for any similar complaints.will have some loose stools following the cramping sometimes.). For severity, patient reportsmild. For duration, patient reportspresent for 2-3 months (8mos). For onset/timing, patient reportsintermittent episodes lasting:. For alleviating factors, patient reportsnone. Annual Pick Pulling Machine Tender Post-MenopausalReported by PatientGenitourinary symptomsFor menopausal symptoms, patient reportsno menopausal symptomsandnormal vaginal lubrication. For vaginal bleeding, patient reportshistory of menopause having occurredandno history of post menopausal bleeding. For urinary symptoms, patient reportsno hematuria,no incontinence,no nocturia, andno urinary frequency. For vulva, patient reportsno genital lesionandno vulvar atrophy. For vagina, patient reportsnormal vaginal dischargeandno vaginal atrophy.Breast symptomsFor breast, patient reportsno breast lump,no nipple discharge, andno breast pain.Psychological symptomsFor sexual complaints, patient reportsno sexual complaints. For psychological symptoms, patient reportsno depressionandno anxiety.Preventative measuresFor preventive measures, patient reportsencourage regular mammograms starting age 40,encourage self breast examination,encourage regular exercise,encourage no tobacco use,needs to schedule mammogram, andhistory of recent colonoscopy. Soumya Keller, [facility]- [address], [place], [address], [facility] 10/22/2021 16:47:39 OBGyn Episode Ob Episode Information Episode Created Date Number of Fetuses Patient Bloodtype Patient rh Status Prepregnancy Weight lbs Domestic Partner Domestic Partner Phone Father Name Family Medicine Physician Assistant Status 10/23/19 22 1 CLOSED Fetus Data First Name Last Name Admitted to NICU Weight (g) Sex Living Outcome Pediatric Complications Fetus ID Race Codes Race Delivery Type M [id number] Vaginal Delivery Osmar Calculation Initial Osmar Date [...] Domestic Partner Domestic Partner Phone Father Name Family Medicine Physician Assistant Status 10/23/19 22 1 CLOSED Fetus Data First Name Last Name Admitted to NICU Weight (g) Sex Living Outcome Pediatric Complications Fetus ID Race Codes Race Delivery Type M [id number] Primary Osmar Calculation Initial Osmar Date Initial [...]
== END 2025-03-09 20:26 | disposition left against medical advice (07) ==
LOC: ANHED 23:24
PROVIDERS: PCP Family Medicine
DX: B34.9 Viral infection, unspecified (principal); B37.0 Candidal stomatitis; J06.9 Acute upper respiratory infection, unspecified; E78.5 Hyperlipidemia, unspecified; I10 Essential (primary) hypertension; F31.9 Bipolar disorder, unspecified; F41.8 Other specified anxiety disorders; Z87.891 Personal history of nicotine dependence
CPT/HCPCS: 99199

== ENCOUNTER 2025-03-10 09:50 | Emergency (ER) | payer OTHER, SELFPAY ==
--- OUTSIDE RECORDS SUMMARY | 2025-03-10 09:53 | XMS_ITS | Clinical Summary ---
Author Organization [facility] Address [address] [place] [address] Care Team Providers Care Inflated Pad Buffer Name Role Phone Unavailable Primary Care Provider [...]
--- OUTSIDE RECORDS SUMMARY | 2025-03-10 09:53 | XMS_ITS | Clinical Summary ---
Author Organization 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
--- OUTSIDE RECORDS SUMMARY | 2025-03-10 09:53 | XMS_ITS | Patient Health Record ---
Author Organization [facility] [employer] Address [address] [place] [address] Care Team Providers Care Crutching Contractor Name Role Phone Anitra Correa Unavailable [phone] Reason For Referral No Information Medications Medication SIG (Take, Route, Frequency, Duration) Notes Start Date End Date Status [place] Carbonate ER 450 MG Tablet Extended Release [...] Vaccine Route Administration Date Status Comme nts Influenza virus vaccine, quadrivalent (IIV4), split virus, 0.25 mL dosage Unknown 02/18/2015 Administered Influenza, seasonal, injecta ble, preservative free, 3 yrs and above Unknown 03/11/2013 Administered Influenza, unspecified formulation Unknown 06/06/2022 A dministered Moderna Covid-19 Vaccine 1st dose Unknown 06/02/2020 Ad ministered Moderna Covid-19 Vaccine 1st dose Unknown 06/30/2020 Ad ministered Novel [id number], preservative free Unknown 05/01/2019 Administered Tdap Unknown 09/06/2015 Administered Tdap Unknown 06/06/2022 Administered Social History Social History Additional Details Category Social Info Options Details Migrated Social History Migrated Social History Alcohol Intake: Occasional 04/19/2020,Tobacco Years: Current every day smoker 04/19/2020,Smoking Status: 20 06/13/2021 Plan Of Treatment No Information Insurance Providers Payer Name Payer Address Payer Phone Subscriber Number Group Number Insured Name Patient Relationship to Insured Coverage Start Date Coverage End Date [facility] [address] [place] [address] [id number] KIRSTEN BARBOUR Self - patient is the insured Medical (General) History Surgical History Surgery Date(Month/Year) section ([id number]) Ligation of fallopian tube ([id number]) Remove cranial cavity fluid (95224)
[2025-03-10 10:04] VITALS: BP 171/99; PULSE 83; RESP 20; TEMP 36.8; O2SAT 98
--- OUTSIDE RECORDS SUMMARY | 2025-03-10 11:36 | XMS_ITS | Clinical Summary ---
Author Organization [facility] Address [address] [place] [address] Care Team Providers Care Family Support Coordinator Name Role Phone Unavailable Primary Care Provider [...]
--- OUTSIDE RECORDS SUMMARY | 2025-03-10 11:36 | XMS_ITS | Clinical Summary ---
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
[2025-03-10 11:45] LABS: Strep Group A RT-PCR NOT DETECTED (Negative)
[2025-03-10 11:56] LABS: Influenza A QL RT-PCR Negative (Negative); Influenza B QL RT-PCR Negative (Negative); RSV RNA, RT-PCR Negative (Negative); SARS-CoV-2 RNA PCR Negative (Negative)
--- NOTE | 2025-03-10 13:16 | ED_ITS ---
HPI - URI/Sore Throat General Chief Complaint: Upper Respiratory Infection Stated Complaint: throat pain x3 weeks Time Seen by Provider: 03/10/25 11:08 History of Present Illness HPI Narrative: Patient is a 60-year-old female who presents to the ER with a 10 day history of an upper respiratory infection. She reports she went to urgent care 10 days ago and was diagnosed with strep. Patient reports she completed a 10 day course of antibiotics. Patient continues to endorse a sore throat, cough, and congestion. She denies any recent fevers, abdominal pain or chest pain. Patient endorses a history of high blood pressure and hyperlipidemia. Related Data Home Medications ?Medication ?Instructions ?Recorded ?Confirmed ?Last Taken ?Type clonazepam 0.5 mg tablet 0.5 mg PO Q12H PRN anxiety 0 09/27/24 02/20/25 Unknown History Allergies Allergy/AdvReac Type Severity Reaction Status Date / Time No Known Allergies Allergy Verified 03/10/25 10:04 Review of Systems Review of Systems: All systems reviewed & are unremarkable except as noted in HPI and below PMFSH Past Medical History Medical History Vitamin deficiency Shingles (herpes zoster) polyneuropathy Screening for breast cancer Mood disorder Long-term current use of lithium Hypercholesterolemia Herpes zoster without complication Chronic fatigue, unspecified Encounter for screening for other metabolic disorders Encounter for screening for lipoid disorders Encounter for preventative adult health care examination Cold sore Body mass index [BMI] 38.0-38.9, adult (01/25/19) Atypical mole Acute otitis media Hypertension Anxiety and depression Sleep apnea HLD (hyperlipidemia) Bipolar 1 disorder Surgical History Surgical History Hx of right hemicolectomy 10/04/24 Robotic assisted laparoscopic right hemicolectomy with [id number] stapled ileocolic anastomosis Dr. Alberts H/O: section Family History Family History Mother CHF (congestive heart failure) Sibling Hx of artificial heart valve replacement Pacemaker Social History Social History Smoking packs per day: 0.5 Smoking cigarettes per day: 10.0 Years smoked: 22 Smoking pack-years: 11.00 Smoking status: Former smoker Second hand tobacco smoke exposure: Yes Alcohol intake: never Substance use: never Substance use type: does not use Do You Feel Safe in your Home?: Yes Lack of Transportation: No Lack of Food: Sometimes True Current Housing: I Have Housing Concerned About Future Housing: Decline to Answer Difficulty Paying Gas/Electric Bills: YES Difficulty Paying for Meds: Decline to Answer Currently Unemployed: YES Education: Bachelor's Degree Difficulty w/ Childcare or Family Care: No Living arrangements: alone Occupation/Education: occupation Gender identity (if verbalized by the patient): Female Spiritual care concerns: No Exam Narrative: GENERAL: Well appearing, well-nourished, non-toxic, in no acute distress. HEAD: Normocephalic, white patches on patient's tongue, no open sores in mouth, atraumatic. NECK: Supple. No adenopathy, no masses. RESPIRATORY: Airway patent, respirations nonlabored. Clear to auscultation bilaterally, no rales, rhonchi, wheezing. CARDIOVASCULAR: Regular rate and rhythm without murmurs, rubs, or gallops. Peripheral pulses 2+ and equal bilaterally. ABDOMINAL: Soft, nontender, nondistended, no hepatosplenomegaly. Normoactive BS. MUSCULOSKELETAL: Moves all extremities. Strength/ROM intact without gross deformities. SKIN: Warm, dry, normal color. No rashes. NEURO: A&O X3. Speech clear. Cranial nerves II-XII intact. No ataxic movements. PSYCHIATRIC: Appropriate mood and affect. Normal interaction. Course Vital Signs Vital signs: Vital Signs Temperature 36.8 C 03/10/25 10:04 Pulse Rate 83 03/10/25 10:04 Respiratory Rate 20 03/10/25 10:04 Blood Pressure 171/99 H 03/10/25 10:04 Pulse Oximetry 98 03/10/25 10:04 Oxygen Delivery Room Air 03/10/25 10:04 Temperature 36.8 C 03/10/25 10:04 Pulse Rate 83 03/10/25 10:04 Respiratory Rate 20 03/10/25 10:04 Blood Pressure 171/99 H 03/10/25 10:04 Pulse Oximetry 98 03/10/25 10:04 Oxygen Delivery Room Air 03/10/25 10:04 MDM - URI/Sore Throat MDM Narrative Medical decision making narrative: Patient is a 60-year-old female who presents to the ER with a 10 day history of an upper respiratory infection. She reports she went to urgent care 10 days ago and was diagnosed with strep. Patient reports she completed a 10 day course of antibiotics. Patient continues to endorse a sore throat, cough, and congestion. She denies any recent fevers, abdominal pain or chest pain. Patient endorses a history of high blood pressure and hyperlipidemia. Labs Ordered: Strep, COVID/flu/RSV Imaging Ordered: None necessary, patient had a chest x-ray performed last night at urgent care Medications Ordered: Viscous lidocaine, prednisone p.o., Toradol 60 mg IM Results: Patient's COVID/flu/RSV swab was negative, patient's strep swab was negative Diagnosis: Upper respiratory infection Patient Education/Shared MDM: Patient provided paperwork from outside this in at urgent care last night. She had an extensive workup there and all results came back negative. Results of today's lab work shared with patient. She will be given a dose of supportive care medications here in the ER. Patient will also be treated for thrush, for which she has a history. Patient strongly advised to maintain hydration status upon discharge and follow-up with her PCP as soon as possible for further evaluation. Patient will be discharged home with a prescription for Diflucan, prednisone and ibuprofen. Strict return precautions provided. Patient verbalized understanding and is in agreement with plan. Vital signs stable at time of discharge. All questions answered. Differential Diagnosis Differential diagnosis: Likely upper respiratory infection, sinusitis, viral infection, bronchitis and influenza Lab Data Attestation: I reviewed the patient's lab results. Labs: Lab Results 03/10/25 Range/Units 11:14 Influenza A (RT-PCR) Negative (Negative) Influenza B (RT-PCR) Negative (Negative) RSV (RT-PCR) Negative (Negative) SARS-CoV-2 RNA (RT-PCR) Negative (Negative) Group A Strep (PCR) Not detected (Negative) Discharge Plan Discharge Clinical Impression: Viral infection, Candidiasis of mouth, Upper respiratory infection Patient Disposition: Home Condition: Stable Instructions: Antibiotic Form, Upper Respiratory Infection (ED) Additional Instructions: Please return to the ER with any worsening symptoms. Follow-up with primary care provider as soon as possible for further evaluation. Take all medications as prescribed, including regularly scheduled medications. Complete your full dose of medication to treat your thrush. Patient Language: Irish Prescriptions: New methylprednisolone [Medrol (Calin)] 4 mg tablets,dose pack See Rx Instructions .ROUTE .COMPLEX Qty: 21 0RF Rx Instructions: for 6 days nystatin 100,000 unit/mL suspension 1 ml PO QID 10 Days Qty: 40 0RF Rx Instructions: swish and swallow ibuprofen 800 mg tablet 800 mg PO TID Qty: 30 0RF No Action nystatin 100,000 unit/gram powder 1 applic topical BID Qty: 30 1RF Patient Comments: not taking fluticasone propionate 50 mcg/actuation spray,suspension 1 spray INTRANASAL Q12H PRN (Reason: nasal congestion) Qty: 16 0RF clonazepam 0.5 mg tablet 0.5 mg PO Q12H PRN (Reason: anxiety) metoprolol succinate 25 mg tablet extended release 24 hr 25 mg PO DAILY Qty: 90 1RF Patient Comments: HS simvastatin 20 mg tablet See Rx Instructions .ROUTE .COMPLEX Qty: 90 3RF Dose Instruction: TAKE 1 TABLET BY MOUTH EVERY DAY Patient Comments: HS Rx Instructions: TAKE 1 TABLET BY MOUTH EVERY DAY Follow-up/Referrals: Barbie Akins DO [Physician, Family Practice] Referral Note: primary care provider UNKNOWN,DOCTOR [Primary Care Provider] Stand Alone Forms: Work/School Release IP Time of Disposition: 13:25
[2025-03-10] MEDS: KETOROLAC (*BKC) 60 MG/2 ML VIAL IM (13:29)
[2025-03-10] MEDS: LIDOCAINE 2% VISC SOLN 15 ML UDC PO (13:30)
== END 2025-03-10 13:36 | disposition home or self-care (01) ==
PROVIDERS: Emergency Medicine; Emergency Provider Registered Nurse
DX: B34.9 Viral infection, unspecified (principal); B37.0 Candidal stomatitis; J06.9 Acute upper respiratory infection, unspecified; I10 Essential (primary) hypertension; E78.5 Hyperlipidemia, unspecified; Z87.891 Personal history of nicotine dependence; Z20.822 Contact with and (suspected) exposure to COVID-19
CPT/HCPCS: 87637; 87651; 96372; 99283; J1885; J7512